=== PATIENT | female | born 1990 | race Caucasian/White ===

== ENCOUNTER → 2017-10-01 15:37 | Outpatient (CLI) | payer OTHER, BC, SELFPAY ==
--- NOTE | 2017-10-01 15:50 | XR_ITS ---
XR hand LT min 3V HISTORY: Pain following injury ITS.REASON: LEFT WRIST HAND AND FINGER INJURY ORDERING PHYSICIAN: Lydia Eden PATIENT AGE: 27 years COMPARISON: FINDINGS: No fracture or dislocation. No lytic or blastic change. There is normal mineralization.. The joint spaces are well-preserved. No significant degenerative/arthritic changes. No erosive changes evident.. IMPRESSION: Negative, no acute finding
--- NOTE | 2017-10-01 15:50 | XR_ITS ---
XR wrist LT min 3V HISTORY pain following injury ITS.REASON: LEFT WRIST HAND AND FOREARM INJURY ORDERING PHYSICIAN: Lydia Eden PATIENT AGE: 27 years COMPARISON: None FINDINGS: No fracture or dislocation. No lytic or blastic change. There is normal mineralization.. The joint spaces are well-preserved. No significant degenerative/arthritic changes. No erosive changes evident.. IMPRESSION: Negative wrist
--- NOTE | 2017-10-01 15:50 | XR_ITS ---
XR forearm LT 2V HISTORY: Pain following injury ITS.REASON: LEFT WRIST HAND AND FOREARM INJURY ORDERING PHYSICIAN: Lydia Eden PATIENT AGE: 27 years COMPARISON: FINDINGS: No obvious fracture, dislocation, lytic change or blastic change. Normal mineralization. Unremarkable soft tissues IMPRESSION: Negative forearm
== END ==
PROVIDERS: PCP Nurse Practitioner Family; Visit Provider Nurse Practitioner Family
DX: S69.92XA Unspecified injury of left wrist, hand and finger(s), initial encounter (principal); S59.912A Unspecified injury of left forearm, initial encounter
CPT/HCPCS: 73090; 73110; 73130

== ENCOUNTER → 2020-01-07 11:06 | Outpatient (CLI) | payer OTHER, SELFPAY ==
--- NOTE | 2020-01-07 11:15 | XR_ITS ---
PROCEDURE: XR ANKLE WT BEARING RT MIN 3V CLINICAL INDICATION: ankle pain Twisting injury with pain COMPARISON: No exams were available for comparison FINDINGS: No fracture or dislocation. No lytic or blastic change. There is normal mineralization. 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 There is a prominent posterior talar process. There is a faint calcific density along the anterior aspect of the navicular suggesting a small avulsion injury IMPRESSION: Chronic changes with possible small avulsion injury at the navicular Dictated by: Fausto Rider MD 01/07/2020 12:10 Electronically signed by Fausto Rider MD in [place] 01/07/2020 12:10
== END ==
PROVIDERS: PCP Family Medicine; Visit Provider Nurse Practitioner
DX: M25.571 Pain in right ankle and joints of right foot (principal)
CPT/HCPCS: 73610

== ENCOUNTER → 2020-02-26 15:28 | Outpatient (CLI) | payer OTHER, SELFPAY ==
[2020-02-28 13:18] LABS: Covid-19 Nasal PCR Sendout Lex Not Detected
== END ==
PROVIDERS: PCP Family Medicine; Visit Provider Family Medicine
DX: Z20.828 Contact with and (suspected) exposure to other viral communicable diseases (principal)
CPT/HCPCS: U0004

== ENCOUNTER → 2020-07-09 15:44 | Outpatient (CLI) | payer OTHER, SELFPAY | PROVIDERS: PCP Family Medicine; Visit Provider Nurse Practitioner Family | DX: Z20.822 Contact with and (suspected) exposure to COVID-19 (principal) | CPT/HCPCS: U0003 ==

== ENCOUNTER → 2021-07-07 10:34 | Outpatient (CLI) | payer OTHER, SELFPAY | PROVIDERS: Visit Provider Nurse Practitioner | DX: Z20.822 Contact with and (suspected) exposure to COVID-19 (principal) | CPT/HCPCS: C9803; U0003; U0005 ==

== ENCOUNTER → 2021-08-19 13:55 | Outpatient (CLI) | payer OTHER, SELFPAY ==
--- NOTE | 2021-08-19 13:55 | MR_ITS ---
FINAL REPORT CLINICAL HISTORY: TBI 20ml prohance given. FINDINGS: Multiplanar MR imaging of the brain was performed without and with contrast. Motion artifact on many of the images decreases the sensitivity. There is anterior left temporal atrophy, likely represents encephalomalacia which could be due to prior injury. There is no evidence of intracranial mass. No evidence of prior hemorrhage is seen. No abnormal extra-axial fluid collection is seen. The ventricular size is within normal limits. There is no evidence of shift of the midline structures. The posterior fossa and brainstem have an unremarkable appearance. No area of abnormal restricted diffusion is identified. No abnormal contrast enhancement is seen. Normal major vessel vascular flow voids are noted. IMPRESSION: No acute intracranial abnormality identified. Left temporal atrophy, likely represents encephalomalacia which could be due to prior injury. Reviewed, Interpreted and Dictated by Ar Quan III, MD Transcribed by Veronica Ramirez Authenticated by Ar Quan III, MD on 08/19/2021 04:24:19 PM [facility]
[2021-08-19 15:51] LABS: Basophils % 0.6 % (0.1-2.0); Eosinophils # 0.1 K/mm3 (0.0-0.4); Eosinophils % 0.9 % (0.1-12.0); Hematocrit 41.3 % (37.0-47.0); Lymphocytes % 13.3 % (10-50); Mean Corpuscular HGB Conc 33.9 g/dL (31.8-35.4); Mean Corpuscular Volume 94.3 fl (81-99); Mean Platelet Volume 7.6 fl (7.4-10.4); Monocytes # 0.6 K/mm3 (0.1-1.0); Monocytes % 8.2 % (1.7-9.3); Neutrophils # 5.9 K/mm3 (1.8-7.8); Neutrophils % 77.1 % (37.0-80.0); Platelet Count 278 K/mm3 (142-424); Red Blood Count 4.39 M/mm3 (4.20-5.40); Red Cell Distribution Width 12.1 % (11.5-17.5); White Blood Count 7.7 K/mm3 (4.8-10.8)
[2021-08-19 16:34] LABS: Alanine Aminotransferase 18 U/L (12-78); Albumin Level 4.8 g/dl (3.5-5.0); Albumin/Globulin Ratio 1.7 (1.1-1.8); Alkaline Phosphatase 71 U/L (38-126); Anion Gap 12.4 mEq/L (5-15); Aspartate Amino Transferase 22 U/L (14-36); Bilirubin,Total 0.7 mg/dl (0.2-1.3); Blood Urea Nitrogen 16 mg/dl (7-17); Calcium 9.9 mg/dl (8.4-10.2); Carbon Dioxide 28 mmol/L (22.0-30.0); Chloride 103 mmol/L (98-107); Estimated Glomerular Filt Rate 85 ml/min (>60); GFR (African American) 103 ML/MIN (>60); Globulin 2.8 g/dL (1.3-3.2); Glucose 80 mg/dl (74-100); Potassium 4.4 mmoL/L (3.5-5.1); Sodium 139 mmol/L (136-145); Total Protein,Serum 7.6 g/dl (6.3-8.2)
[2021-08-19 17:05] LABS: Thyroid Stimulating Hormone 2.08 uIU/mL (0.465-4.68)
[2021-08-19 17:40] LABS: Vitamin B12 441 pg/mL (239-931)
== END ==
PROVIDERS: PCP Family Medicine; Visit Provider Specialist
DX: F09 Unspecified mental disorder due to known physiological condition (principal); Z87.820 Personal history of traumatic brain injury
CPT/HCPCS: 36415; 70553; 80053; 82607; 82746; 84443; 85025; A9576

== ENCOUNTER → 2021-09-02 12:06 | Outpatient (CLI) | payer OTHER, SELFPAY | PROVIDERS: PCP Family Medicine; Visit Provider Specialist | DX: G47.33 Obstructive sleep apnea (adult) (pediatric) (principal); F09 Unspecified mental disorder due to known physiological condition | CPT/HCPCS: 95806 ==

== ENCOUNTER 2021-10-20 14:57 | Emergency (ER) | payer OTHER, SELFPAY ==
[2021-10-20 14:58] VITALS: BP 152/74; PULSE 92; RESP 16; TEMP 37.6; O2SAT 98; BMI 37.5
[2021-10-20 15:25] VITALS: BP 0/0; PULSE 0; RESP 0; TEMP -17.7; TEMP 0
== END 2021-10-20 15:28 | disposition left against medical advice (07) ==
LOC: UTC 16:12
PROVIDERS: Emergency Provider Nurse Practitioner; PCP Family Medicine
DX: Z53.21 Procedure and treatment not carried out due to patient leaving prior to being seen by health care provider (principal)

== ENCOUNTER 2021-11-01 20:38 | Emergency (ER) | payer OTHER, SELFPAY ==
[2021-11-01 20:49] VITALS: BP 140/68; PULSE 87; RESP 18; TEMP 37.5; O2SAT 98; BMI 38.5
--- NOTE | 2021-11-01 20:57 | HMH.EDSKAF ---
ED Disposition Clinical Impression: Cellulitis Qualifiers: Site of cellulitis: extremity Site of cellulitis of extremity: upper extremity Laterality: left Qualified Code(s): L03.114 - Cellulitis of left upper limb Disposition: Home, Self-Care Condition on Discharge: Good Instructions: Cellulitis Additional Instructions: use meds and see pcp for follow up Prescriptions: Sulfamethoxazole/Trimethoprim [Bactrim DS tablet] 1 each PO BID #14 tab Transmission Status: Pending to [facility] # cephALEXin [cephALEXin 500mg capsule*] 500 mg PO TID #30 cap Transmission Status: Pending to [facility] # Referrals: Lydia Eden APRN [Primary Care Provider] - - Critical Care Critical Care Time: No Attestation: On , the high probability of a clinically significant, sudden or life threatening deterioration of the following system(s) required my full and direct attention, intervention and personal management. The time I documented below is in addition to time spent performing reported procedures but includes the following listed in this critical care notation. Medical Decision Making - Medical Records Medical records reviewed: Yes: I reviewed the patient's medical records. - Guillaume Inquiry Pt receiving controlled substance: No Vital Signs: 11/01/21 20:49 Temperature 99.5 F Temperature Source Oral Pulse Rate [Apical] 87 Respiratory Rate 18 Blood Pressure [Right Arm] 140/68 Blood Pressure Mean [Right Arm] 92 Blood Pressure Source [Right Arm] Automatic Cuff Blood Pressure Position [Right Arm] Sitting 02 Sat by Pulse Oximetry 98 Oxygen Delivery Method Room Air Medical Decision Narrative: has cellulitis lt forearm and will give meds at this time Skin/Abscess/FB HPI - General Chief complaint: Wound/Laceration Stated complaint: spot on Left arm Infected Time Seen by Provider: 11/01/21 20:57 Mode of Arrival: Ambulatory Source of Information: Patient, Parent(s), Medical Record Limitations: No Limitations Description of Symptoms (Recalled from ER Triage Doc. by RN): patient has a wound on her inner left forearm that has been there since Sunday. Unknown source of injury. Red streaking noted on forearm. - History of Present Illness HPI narrative: infected area lt volar forearm over the last few days MD complaint: abscess/boil Onset (ago): day(s) Tetanus up to date: yes Location: LUE Severity: moderate Associated symptoms: denies other symptoms Treatments prior to arrival: none - Related Data Home Medications Medication Instructions Recorded Confirmed Benztropine Mesylate 0.5 mg PO BID 11/01/21 11/01/21 Cariprazine HCl [Vraylar] 1.5 mg PO DAILY 11/01/21 11/01/21 Citalopram Hydrobromide 40 mg PO DAILY 11/01/21 11/01/21 [Citalopram HBr] lamoTRIgine [Lamotrigine] 50 mg PO BID 11/01/21 11/01/21 Previous Rx's Medication Instructions Recorded Sulfamethoxazole/Trimethoprim 1 each PO BID #14 tab 11/01/21 [Bactrim DS tablet] cephALEXin [cephALEXin 500mg 500 mg PO TID #30 cap 11/01/21 capsule*] Allergies Allergy/AdvReac Type Severity Reaction Status Date / Time lamotrigine [From Lamictal] Allergy Intermediate rash Verified 10/20/21 14:09 latex Allergy Intermediate Verified 10/20/21 14:09 Bandaid Allergy Mild Uncoded 10/10/21 14:15 [facility] History - Hepatitis A Screen Attestation statement:: This patient has been screened for Hepatitis A risk factors. I have reviewed the patient's past medical history: Yes Medical History: Reports:: Anxiety, Osteoporosis Other Medical History: Reports: Osteoporosis, Other Comment: TBI Other Surgeries: Yes: No Previous Surgery Amputation: No Fractures: No - Social History Smoking Status: Never smoker Alcohol Intake: never Substance Use Type: denies use Occupational Status: employed Housing: house Household Members: family - Psychiatric History Pschychiatric History:: Reports:: Anxiety Family Hx:: Diabetes,
[2021-11-01 21:06] VITALS: BP 135/81; PULSE 86; RESP 17; TEMP 37.4; O2SAT 99
== END 2021-11-01 21:28 | disposition home or self-care (01) ==
PROVIDERS: Emergency Provider Emergency Medicine; PCP Nurse Practitioner Family
DX: L03.114 Cellulitis of left upper limb (principal)
CPT/HCPCS: 99212; G0463

== ENCOUNTER 2024-04-10 15:51 | Emergency (ER) | payer MEDICAID, SELFPAY ==
[2024-04-10 16:05] VITALS: BP 136/80; PULSE 105; RESP 20; TEMP 36.8; O2SAT 97; BMI 43.9
--- NOTE | 2024-04-10 16:17 | EXP.UTC ---
Discharge Plan Disposition Patient Disposition: Home, Self-Care Condition: Good Prescriptions Prescriptions: New triamcinolone acetonide 0.1 % cream 1 applic topical BID PRN (Reason: itching) Qty: 30 0RF mupirocin 2 % ointment 1 applic topical TID 7 Days Qty: 15 0RF amoxicillin-pot clavulanate 875-125 mg Tablet 1 tab PO Q12H Qty: 20 0RF No Action clonazepam [Klonopin] 0.5 mg tablet 0.5 mg PO BID PRN (Reason: agitation) Qty: 60 1RF metformin 500 mg tablet 500 mg PO DAILY Patient Comments: TAKE 1 TABLET BY MOUTH TWICE DAILY WITH MEALS Vraylar 3 mg capsule 4.5 mg PO DAILY trazodone 50 mg tablet 50 mg PO DAILY Qty: 30 2RF benztropine 0.5 mg tablet See Rx Instructions .ROUTE .COMPLEX Qty: 180 0RF Dose Instruction: TAKE 1 TABLET BY MOUTH TWICE DAILY Rx Instructions: TAKE 1 TABLET BY MOUTH TWICE DAILY citalopram 40 mg tablet See Rx Instructions .ROUTE .COMPLEX Qty: 30 0RF Dose Instruction: TAKE 1 TABLET BY MOUTH DAILY FOR SLEEP Rx Instructions: TAKE 1 TABLET BY MOUTH DAILY FOR SLEEP paroxetine HCl 40 mg tablet See Rx Instructions .ROUTE .COMPLEX Qty: 30 0RF Dose Instruction: TAKE 1 TABLET BY MOUTH DAILY Rx Instructions: TAKE 1 TABLET BY MOUTH DAILY lamotrigine 100 mg tablet See Rx Instructions .ROUTE .COMPLEX Qty: 60 0RF Dose Instruction: TAKE 1/2 TABLET BY MOUTH TWICE DAILY Rx Instructions: TAKE 1/2 TABLET BY MOUTH TWICE DAILY Referrals Follow up/Referrals: Chirag Rea MD [Primary Care Provider] - See instructions Activity Restrictions/Add. Instructions Additional Instructions/Restrictions: Keep the wounds clean and dry. Follow up with your regular doctor. Take the antibiotics as directed and apply the topical antibiotics as directed. Make sure you stay in contact with the health department regarding the health of the dog. Watch the puncture wounds for signs of worsening infection, such as worsening redness, drainage, swelling, etc. GO TO THE ER FOR ANY WORSENING SYMPTOMS Clinical Impressions Clinical Impression: Cat bite of right hand, Cellulitis of right hand Instructions Patient Instructions: DI for Animal Bites, Triamcinolone Topical, Amoxicillin and Clavulanic Acid, Ceftriaxone Injection, Mupirocin Print Language Print Language: Panamanian Discharge ED Provider: Jose Adames [facility] [place] HPI General Stated complaint: cat bite right hand Mode of Arrival: Ambulatory Source of Information: Patient Limitations: No Limitations Time Seen by Provider: 04/10/24 16:10 Description of Symptoms (Recalled from Triage Doc. by RN): PATIENT C/O REDNESS AND SWELLING TO RIGHT HAND AFTER GETTING BIT BY A CAT ON SUNDAY HEENT Symptoms (Recalled from RN notes): No Resp Symptoms (Recalled from RN notes): No Skin Symptoms (Recalled from RN notes): Yes MS Symptoms (Recalled from RN notes): No Functional Status (Recalled from RN notes): WNL History of Present Illness Provider Complaint: She states that 4 days ago she was bit by her cat on her right hand. She states that the cat was playing and did not mean to hurt her. Since then she has developed edema and redness of her right hand in the area of the bite. Her tetanus immunization is up to date. Related Data Home Medications ?Medication ?Instructions ?Recorded ?Confirmed metformin 500 mg tablet 500 mg PO DAILY 08/20/23 04/10/24 cariprazine 3 mg capsule (Vraylar) 4.5 mg PO DAILY 11/20/23 04/10/24 Previous Rx's ?Medication ?Instructions ?Recorded clonazepam 0.5 mg tablet (Klonopin) 0.5 mg PO BID PRN agitation #60 08/17/23 tabs trazodone 50 mg tablet 50 mg PO DAILY #30 tabs 02/19/24 benztropine 0.5 mg tablet See Rx Instructions .Route 02/22/24 .COMPLEX #180 tabs citalopram 40 mg tablet See Rx Instructions .Route 03/21/24 .COMPLEX #30 tabs lamotrigine 100 mg tablet See Rx Instructions .Route 03/31/24 .COMPLEX #60 tabs paroxetine HCl 40 mg tablet See Rx Instructions .Route 03/31/24 .COMPLEX #30 tabs amoxicillin 875 mg-potassium 1 tab PO Q12H #20 tabs 04/10/24 clavulanate 125 mg tablet mupirocin 2 % topical ointment 1 applic topical TID 7 days #15 04/10/24 grams triamcinolone acetonide 0.1 % 1 applic topical BID PRN itching 04/10/24 topical cream #30 grams Allergies Allergy/AdvReac Type Severity Reaction Status Date / Time lamotrigine [From Lamictal] Allergy Intermediate rash Verified 03/07/24 10:29 latex Allergy Intermediate Verified 03/07/24 10:29 Bandaid Allergy Mild Uncoded 11/10/22 10:12 Worker's Comp Is this a Worker's Comp case?: No [facility] Disclaimer: The information contained in this section may have been updated after the patient was seen, as this information can be updated by other users. Medical History Mood disorder Social History Smoking Status: Never smoker alcohol intake: never substance use type: denies use current occupational status: employed Travel in the last 8 weeks: None household members: family housing: house number of children: 0 ROS Obtained: Yes All systems reviewed & no additional complaints except as documented Constitutional Constitutional: Denies chills and Denies fever(s) Eyes Eyes: Denies eye discharge ENT Ears, Nose, Mouth, and Throat: Denies dizziness, Denies otalgia and Denies sore throat Cardiovascular Cardiovascular: Denies chest pain Respiratory Respiratory: Denies shortness of breath, Denies chest congestion, Denies cough, Denies stridor and Denies wheezing Gastrointestinal Gastrointestingal: Denies nausea or vomiting Musculoskeletal Musculoskeletal: Reports system reviewed and no additional complaints, except as documented and Denies arthralgias Integumentary/Breasts Skin/Breast: Reports as per HPI Neurologic Neurologic: Denies dizziness and Denies paresthesias Allergic/Immunologic Allergic/Immunologic: Denies wheezing Physical Exam General General appearance: alert and in no apparent distress Head Head exam: atraumatic, normocephalic and normal inspection Eye Eye exam: Present normal appearance, PERRL and EOMI ENT ENT exam: Present normal exam, normal oropharynx, mucous membranes moist, TM's normal bilaterally and normal external ear exam Neck Neck exam: Present normal inspection, full ROM and trachea midline; Absent meningismus or lymphadenopathy Chest Chest inspection: Present normal inspection and symmetric chest wall rise; Absent tenderness Respiratory Respiratory exam: Present normal lung sounds bilaterally; Absent respiratory distress Cardiovascular Cardiovascular exam: Present regular rate and normal rhythm; Absent JVD Abdominal Exam Abdominal exam: Present soft and normal bowel sounds; Absent distention, tenderness or guarding Extremities Exam Extremities exam: Present normal inspection, full ROM and normal capillary refill; Absent calf tenderness Back Exam Back exam: Present normal inspection; Absent tenderness Neurological Exam Neurological exam: Present alert and oriented X3 Psychiatric Psychiatric exam: Present normal affect and normal mood Skin Skin exam: Present erythema (there is moderate erythema and mild edema of the dorsal surface of her right hand. no open wounds or drainage noted. ) Lymphatic Lymphatic Findings: no adenopathy Medical Decision Making Medical Records Medical records reviewed: No I reviewed the patient's medical records. Screening: Per USPSTF and CDC recommendations, given the prevalence of disease in our region, it is our hospital?s policy to screen for HIV and viral Hepatitis for all patients aged 18 and over and those with ongoing risk factors. Guillaume Inquiry Pt receiving controlled substance: No Vital Signs: 04/10/24 16:05 Temperature 98.2 F Temperature Source Oral Pulse Rate [Left Brachial] 105 H Respiratory Rate 20 Blood Pressure [Left Arm] 136/80 Blood Pressure Mean [Left Arm] 98 Blood Pressure Source [Left Arm] Automatic Cuff Blood Pressure Position [Left Arm] Sitting 02 Sat by Pulse Oximetry 97
--- NOTE | 2024-04-10 16:35 | PC.NURSE ---
ROCEPHIN ORDER FLAGGED FOR LATEX ALLERGY. SPOKE WITH ARA FROM PHARMACY WHO STATES OK TO GIVE
[2024-04-10] MEDS: LIDOCAINE 1% 5ML PF VIAL IM (16:40)
[2024-04-10] MEDS: cefTRIAXone 1GM VIAL 1 GM IM (16:40)
[2024-04-10 17:02] VITALS: BP 136/80; PULSE 105; RESP 20; TEMP 36.8; O2SAT 97
== END 2024-04-10 17:03 | disposition home or self-care (01) ==
PROVIDERS: Emergency Provider Nurse Practitioner Family; PCP Family Medicine
DX: L03.113 Cellulitis of right upper limb (principal); W55.01XA Bitten by cat, initial encounter
CPT/HCPCS: 96372; 99213; G0381; J0696

== ENCOUNTER 2024-06-30 16:29 | Emergency (ER) | payer MEDICAID, SELFPAY ==
[2024-06-30 16:35] VITALS: BP 131/90; PULSE 98; RESP 16; TEMP 36.8; O2SAT 99; BMI 44.2
--- NOTE | 2024-06-30 16:44 | EXP.UTC ---
Discharge Plan Disposition Patient Disposition: Home, Self-Care Condition: Good Prescriptions Prescriptions: New benzonatate 100 mg capsule 100 mg PO TID PRN (Reason: cough) Qty: 30 0RF amoxicillin-pot clavulanate 875-125 mg Tablet 1 tab PO Q12H Qty: 20 0RF fluticasone propionate [Flonase Allergy Relief] 50 mcg/actuation spray,suspension 2 spray intranasal DAILY Qty: 16 0RF Rx Instructions: administer 2 sprays into each nostril daily No Action metformin 500 mg tablet 500 mg PO DAILY Patient Comments: TAKE 1 TABLET BY MOUTH DAILY WITH BREAKFAST benztropine 0.5 mg tablet 0.5 mg PO BID Patient Comments: TAKE 1 TABLET BY MOUTH TWICE DAILY citalopram 40 mg tablet 40 mg PO DAILY paroxetine HCl 40 mg tablet 40 mg PO DAILY Patient Comments: TAKE 1 TABLET BY MOUTH DAILY lamotrigine 100 mg tablet 100 mg PO BID Patient Comments: TAKE 1/2 TABLET BY MOUTH TWICE DAILY Vraylar 4.5 mg capsule 4.5 mg PO DAILY Referrals Follow up/Referrals: Chirag Rea MD [Primary Care Provider] - See instructions Activity Restrictions/Add. Instructions Additional Instructions/Restrictions: *Monitor Temp, Over the counter Motrin or Tylenol as directed/as needed Tylenol every 4 hours and Motrin every 6 hours (as long as your family doctor has told you that you can take it) for fever or pain. and straight to ER if unable to lower temp less than 101.0 after medication given *Warm salt water gargles may help to soothe the throat *Throat Lozenges? *Warm fluids like tea with honey may help to soothe the throat? *Sleep elevated *Humidifier/Vaporizer *Flonase 2 sprays in each nostril daily but be aware that it may take 2-3 days before you notice improvement Take medication as prescribed Follow up IMMEDIATELY for new or worsening symptoms or no Noticeable improvement over the next 48-72 hours. 911 for difficulty breathing or swallowing Clinical Impressions Clinical Impression: Sinusitis Instructions Patient Instructions: DI for Sinusitis, Cough, Benzonatate, Amoxicillin and Clavulanic Acid Print Language Print Language: Croatian Discharge ED Provider: Tierra Branham [facility] [place] HPI General Stated complaint: cough,wheezing,ROBERTS,bilateral earache Mode of Arrival: Ambulatory Source of Information: Patient Limitations: No Limitations Time Seen by Provider: 06/30/24 16:44 Description of Symptoms (Recalled from Triage Doc. by RN): PATIENT C/O BILATERAL EAR PAIN, COUGH, AND CHEST CONGESTION X 2 DAYS HEENT Symptoms (Recalled from RN notes): Yes Resp Symptoms (Recalled from RN notes): Yes Skin Symptoms (Recalled from RN notes): No MS Symptoms (Recalled from RN notes): No Functional Status (Recalled from RN notes): WNL History of Present Illness Provider Complaint: Patient states that she has been having sinus pain and pressure, pain and pressure in both ears, cough and chest congestion States today she wasnt feeling any better so she came in to get checked Related Data Home Medications ?Medication ?Instructions ?Recorded ?Confirmed benztropine 0.5 mg tablet 0.5 mg PO BID 06/30/24 06/30/24 cariprazine 4.5 mg capsule 4.5 mg PO DAILY 06/30/24 06/30/24 (Vraylar) citalopram 40 mg tablet 40 mg PO DAILY 06/30/24 06/30/24 lamotrigine 100 mg tablet 100 mg PO BID 06/30/24 06/30/24 metformin 500 mg tablet 500 mg PO DAILY 06/30/24 06/30/24 paroxetine HCl 40 mg tablet 40 mg PO DAILY 06/30/24 06/30/24 Previous Rx's ?Medication ?Instructions ?Recorded amoxicillin 875 mg-potassium 1 tab PO Q12H #20 tabs 06/30/24 clavulanate 125 mg tablet benzonatate 100 mg capsule 100 mg PO TID PRN cough #30 caps 06/30/24 fluticasone propionate 50 2 spray intranasal DAILY #16 grams 06/30/24 mcg/actuation nasal spray,suspension (Flonase Allergy Relief) Allergies Allergy/AdvReac Type Severity Reaction Status Date / Time lamotrigine (From Lamictal) Allergy Intermediate rash Verified 05/05/24 14:08 latex Allergy Intermediate Rash Verified 06/30/24 16:44 Worker's Comp Is this a Worker's Comp case?: No [facility] Disclaimer: The information contained in this section may have been updated after the patient was seen, as this information can be updated by other users. Medical History Mood disorder Social History Smoking Status: Never smoker alcohol intake: never substance use type: denies use current occupational status: employed Travel in the last 8 weeks: None household members: family housing: house number of children: 0 Have you lived/traveled outside [place] in past 30 days?: No Contact w/someone who lives/traveled outside [place] past 30 days?: No Exposure to someone with infectious disease in past 14 days?: No Do you have a fever (greater than 100.4 F or 38 C)?: No Have you tested positive for COVID-19: No Exposed to someone with COVID-19 in past 14 days?: No Do you have a sore throat?: No Do you have a cough?: Yes Do you have any weakness?: No Do you have any diarrhea?: No Are you experiencing any unusual bleeding?: No Do you have any muscle aches/pain?: No Do you have any abdominal pain?: No Are you experiencing loss of taste or smell?: No ROS Obtained: Yes All systems reviewed & no additional complaints except as documented and Yes Systems reviewed as appropriate & no additional complaints except as documented Constitutional Constitutional: Reports system reviewed and no additional complaints, except as documented and Reports as per HPI ENT Ears, Nose, Mouth, and Throat: Reports system reviewed and no additional complaints, except as documented, Reports as per HPI, Reports otalgia, Reports sinus pain and Reports sinus pressure Cardiovascular Cardiovascular: Reports system reviewed and no additional complaints, except as documented and Reports as per HPI Respiratory Respiratory: Reports system reviewed and no additional complaints, except as documented, Reports as per HPI, Reports chest congestion and Reports cough Gastrointestinal Gastrointestingal: Reports system reviewed and no additional complaints, except as documented and as per HPI Physical Exam General General appearance: alert and in no apparent distress ENT ENT exam: Present mucous membranes moist Expanded ENT Exam TM/Canal exam: Bilateral TM: bulging (no redness noted) Nose exam: Present sinus tenderness Respiratory Respiratory exam: Present normal lung sounds bilaterally; Absent respiratory distress or wheezes Cardiovascular Cardiovascular exam: Present regular rate, normal rhythm and normal heart sounds Abdominal Exam Abdominal exam: Present soft and normal bowel sounds; Absent distention or tenderness Neurological Exam Neurological exam: Present alert, oriented X3 and normal gait Medical Decision Making Medical Records Screening: Per USPSTF and CDC recommendations, given the prevalence of disease in our region, it is our hospital?s policy to screen for HIV and viral Hepatitis for all patients aged 18 and over and those with ongoing risk factors. Guillaume Inquiry Pt receiving controlled substance: No Guillaume was queried for this patient: No Vital Signs: 06/30/24 16:35 Temperature 98.3 F Temperature Source Oral Pulse Rate [Left Brachial] 98 H Respiratory Rate 16 Blood Pressure [Left Arm] 131/90 Blood Pressure Mean [Left Arm] 103 Blood Pressure Source [Left Arm] Automatic Cuff Blood Pressure Position [Left Arm] Sitting 02 Sat by Pulse Oximetry 99 Oxygen Delivery Method Room Air
[2024-06-30 16:53] VITALS: BP 131/90; PULSE 98; RESP 16; TEMP 36.8; O2SAT 99
== END 2024-06-30 16:56 | disposition home or self-care (01) ==
PROVIDERS: Emergency Provider Nurse Practitioner; PCP Family Medicine
DX: J32.9 Chronic sinusitis, unspecified (principal)
CPT/HCPCS: 99212; G0381

== ENCOUNTER 2025-02-09 09:11 | Outpatient (CLI) | payer MEDICARE, MEDICAID, SELFPAY ==
--- OUTSIDE RECORDS SUMMARY | 2024-12-30 12:41 | XMS_ITS | Encounter Summary ---
Author Organization Healthcare Address [address] [id number] Care Team Providers Care Evp And Chief Operating Officer Name Role Phone Chirag Rea MD Primary Care Provider [phone] Reason for Referral * Imaging (Routine) - Closed Specialty Diagnoses / Procedures Referred By Contac t Referred To Contact Radiology Diagnoses Traumatic brain injury with loss of consciousness, sequela (CMS/HCC) Procedures MR Head w and wo IV Contrast Yara Cornejo MD [address] [address] Phone: tel: fax: Referral ID Status Reason Start Date Expiration Date Visits Re quested Visits Authorized [id number] Closed 09/17/2024 03/19/2026 1 1 Reason for Visit * Imaging (Routine) - Closed Specialty Diagnoses / Procedures Referred By Contac t Referred To Contact Radiology Diagnoses Traumatic brain injury with loss of consciousness, sequela (CMS/HCC) Procedures MR Head w and wo IV Contrast Yara Cornejo MD [address] [address] Phone: tel: fax: Referral ID Status Reason Start Date Expiration Date Visits Re quested Visits Authorized [id number] Closed 09/17/2024 03/19/2026 1 1 Encounter Details Date Type Department Care Team (Latest Contact Info) Description 12/30/2024 12:41 PM EDT - 12/30/2024 11:59 PM EDT Hospital Encounter [facility] MRI [address] [place] [address] Traumatic brain injury with loss of consciousness, [...] error, please notify the sender immediately at [phone] and permanently delete the original report and destroy any copies or printouts. Narrative 12/30/2024 3:55 PM EDT [facility] - Phone Outpatient NAME: Slim Montelongo DATE OF EXAM: 12/30/2024 Patient No: [id number] Physician: Osmar Date of : 1990 Past [...] Barnhart MD - 12/30/2024 [facility] NAME: Slim Montelongo Christopher DATE OF EXAM: 12/30/2024 Patient No: [id number] Physician: Osmar Date of : 1990 Past [...] in error, pleasenotify the sender immediately at [phone] and permanently delete theoriginal report and destroy any copies or printouts. Yara Conrejo MD IMG MRI PROCEDURES Final Res ult [...] documented as of this encounter Care Teams Evp And Chief Operating Officer Relationship Specialty Start Date End Date Chirag Rea MD [address] [place] [address] PCP - General 09/17/24 documented as of this encounter
--- OUTSIDE RECORDS SUMMARY | 2025-01-06 16:30 | XMS_ITS | Encounter Summary ---
Author Organization [facility] Address [address] [place] [address] Care Team Providers Care Connie Scratcher Name Role Phone Chirag Rea MD Primary Care Provider + Reason for Visit * Reason Comments Follow-up [facility] f/u, UTI- still having burning with urination. Encounter Details Date Type Department Care Team (Late st Contact Info) Description 01/06/2025 4:30 PM EDT Office Visit [facility] [address] [place] [address] Chirag Rea MD [address] [place] [address] Hematuria, unspecified type (Primary Dx); [...] EDT Chief Complaint Patient presents with Follow-up [facility] f/u, UTI- still having burning with urination. Subjective Slim Montelongo is a 34 y.o. who presents for follow-up of a 1 week stay at [facility] for cristhian. Adjustments were made to medications [...] Color Yellow Yellow, Straw, Dark Yellow, Lina [facility] Comment:odor Clarity, UA Cloudy(A) Clear [facility] Specific [place] 1.030 1.005 - 1.030 [facility] pH, Urine 6.0 5.0 - 8.0 [facility] Leukocytes Negative Negative [facility] Nitrite, UA Negative Negative [facility] Protein, POC Negative Negative mg/dL [facility] Glucose, UA Negative Negative mg/dL [facility] Ketones, UA Negative Negative [facility] Urobilinogen, UA Normal Normal, 0.2 E.U./dL [facility] Bilirubin Negative Negative [facility] Blood, UA Trace(A) Negative [facility] Lot Number [id number] [facility] Expiration Date 08/11/2025 [facility] Urine 01/06/2025 3:49 PM EDT us Chirag Rea MD POINT OF CARE TEST ORDER JYOTI Final Result [facility]
[address] [place] [address], documented in this encounter Visit Diagnoses Diagnosis Hematuria, unspecified type- Primary Mood disorder Unspecified episodic mood disorder Urinary tract infection without hematuria, site unspecified documented in this encounter Care Teams Connie Scratcher Relationship Specialty Start Date End Date Chirag Rea MD [address] [place] [address] PCP - General Family Medicine 04/16/23 documented as of this encounter
--- OUTSIDE RECORDS SUMMARY | 2025-01-07 11:00 | XMS_ITS | Encounter Summary ---
Author Organization Healthcare Address [address] [place] [address] Care Team Providers Care Door Cutter Name Role Phone Chirag Rea MD Primary Care Provider [phone] Yara Cornejo MD Unavailable [phone] Reason for Visit * Reason Comments Follow-up Encounter Details Date Type Department Care Team (Late st Contact Info) Description 01/07/2025 11:00 AM EDT Office Visit [place] [facility] [address], [address] [place] [address] Yara Cornejo MD [address] [place] [address] Traumatic brain injury with loss of consciousness, sequela (CMS/HCC) (Primary Dx); Behavioral problem; Cognitive change; Intellectual disability Social History Tobacco Use Types Packs/Day Years [...] Sign Reading Time Taken Comments Blood Pressure 116/77 01/07/2025 10:49 AM EDT Pulse 88 01/07/2025 10:49 AM EDT Temperature - - Respiratory Rate - - Oxygen Saturation 95% 01/07/2025 10:49 AM EDT Inhaled Oxygen Concentration - - Weight 107 kg (236 lb 15.9 oz) 01/07/2025 10:49 AM EDT Height 157.5 cm (5' 2 ) 01/07/2025 10:49 AM EDT Body Mass Index 43.35 01/07/2025 10:49 AM EDT documented in this encounter Miscellaneous Notes * Progress Notes - Yara Cornejo MD - 01/07/2025 11:00 AM EDT Reason for Consult advice and opinion regarding TBI History of Present Illness History was obtained from a review of the electronic record and discussion with the patient and family. Slim Montelongo is a 34 y.o. female with traumatic brain injury who returns in the Neurology Clinic for evaluation. Accompanied by her mother who provided most of the history. Last seen in September/2024. Previous history Sustained Brain injury - age of 3.5 years. Fell down a stairwell. Developed Head injury - happened in [place], [place]. Hospitalized for 48 hours, mother can't remember details. Has had head imaging. Did not require any surgery. Patient has had behavioral issues and cognitive deficits after this head injury. Types of Behavioral issues - brought a typed out note of 3 pages outlining the problems- aggression, flipping switch back and forth , frequent eating. Patient has been evaluated by PCP, neurology - Dr. Saloni Coleman, also saw neurology in [place] Reports Little headache at least once a week,. Managed with Tylenol or advil. There were concerns about Absence seizures after head injury. Zones on and off. Darts eyes, ? Abnormal hand movements. No GTC. Has completed EEG in August 2021 -showed poor background, abnormal, no szs Has completed Sleep study - moderate sleep apnea- not using CPAP. Parents are unable to make her cooperate. MRI head in August 2021-showed left temporal atrophy, post traumatic encephalomalacia Has completed Neurocog eval- had low scores on mental flexibility, executive function,digital symbol substitution with Poor attention span Followed by psychiatric nurse practitioner. Sarah perez, psychosocial rehabilitation counselor, Lisa Mishra - now forMood and behavioral changes- choked her family cat. Patient says she Works at [employer] - 3 days a week - from 3 to 6 pm , [employer] 2/week - this is TYPE OF OCCUPATIONAL THERAPY. Stays at home with her parents. Completed high school - had IEP IQ -62 to 60 Has been documented that Expressive language high, receptive language is low. No falls , left leg does not work well. Previous meds include Vrylar Cogentin, citalopram, paroxetine, trazodone lamotrigine and as-needed Klonopin. She was on metformin for suppressing appetite, no known history of polycystic ovarian syndrome or metabolic syndrome although she has irregular menstrual cycles. Maternal great grand mother and aunt - had mental illness Has Distance vision glasses - does not wear them Decline in behavior - has become more intense per parents , self harm- rome Gonzalez provides weekly behavioral therapy at home. Suggested the following MRI head w/wo- did not show any acute abnormalities EEG - did not show any epileptiform discharges or abnormalities Neuropsych evaluation completed in September/2024 and showed intellectual Developmental Disorder (mild-moderate); confounding/contributing variables include h/o TBI, poor sleep, MALIKA (not on CPAP), affective concerns (i.e., anxiety, depression). IQ something close to 65 to 74, more like 65 per neuropsychologist. Was difficult to complete the entire panel of testing. Encouraged patient to use CPAP Interim history Not using CPAP- voices wake her up at 4.30 am everyday. Has been hearing auditory hallucinations Admitted in [facility] for 1 week in end of November 2024. There was concern for psychosis. During that admission she was treated for a urinary tract infection and still continues to receivetreatment. Medications changes made as follows Seroquel 200 mg daily Lexapro 10 mg once a day Nitrofurantoin for UTI - started back Lamotrigine 100 mg Still hears voices. No facial tics despite stopping benztropine. Sees behavioral counsellor. Sees behavioral and psychiatry [employer]- Tracy Mishra. Mother was requesting for a diagnosis. Past Medical History Past Medical History[1] Surgical History[2] MEDICATIONS FOR CURRENT ENCOUNTER: Encounter Medications[3] Allergies Allergies[4] Social History Social History[5] Family History Family History[6] REVIEW OF SYSTEMS: Review of Systems Constitutional: Negative. HENT: Negative. Eyes: Negative. Respiratory: Negative. Cardiovascular: Negative. Gastrointestinal: Negative. Endocrine: Negative. Genitourinary: Negative. Musculoskeletal: Negative. Skin: Negative. Allergic/Immunologic: Negative. Neurological: Negative. Hematological: Negative. Psychiatric/Behavioral: Negative. Physical Exam HENT: Head: Normocephalic and atraumatic. Cardiovascular: Normal rate and regular rhythm. Pulmonary/Chest: Effort normal and breath sounds normal. Abdominal: Soft. Normal appearance and bowel sounds are normal. Musculoskeletal: General: Normal range of motion. Cervical back: Normal range of motion. Psychiatric: Her speech is normal and behavior is normal. Mood, judgment and thought content normal. Vitals: 01/07/25 1049 BP: 116/77 Pulse: 88 SpO2: 95% Weight percentile: Facility age limit for growth %corinne is 20 years. Height percentile: Facility age limit for growth %corinne is 20 years. BMI percentile: Facility age limit for growth %corinne is 20 years. BP percentile: Growth %ile [employer] can only be used for patients less than 20 years old. Wt Readings from Last 4 Encounters: 01/07/25 107 kg (236 lb 15.9 oz) 12/30/24 107 kg (235 lb) 09/17/24 107 kg (235 lb 14.3 oz) Physical Exam HENT: Head: Normocephalic and atraumatic. Cardiovascular: Normal rate and regular rhythm. Pulmonary/Chest: Effort normal and breath sounds normal. Abdominal: Soft. Normal appearance and bowel sounds are normal. Musculoskeletal: General: Normal range of motion. Cervical back: Normal range of motion. Psychiatric: Her speech is normal and behavior is normal. Mood, judgment and thought content normal. Neurological exam Neurological Exam Mental Status Speech is normal. Mental Status: Awake, Alert. Oriented x 3. Follows commands, has reasonable fund of knowledge, attention, and speech is fluent. Knew the date. Was providing appropriate answers Cranial Nerves: Visual rosario are full without hemineglect. Fundi normal without disc edema noted. No nystagmus or GREG are present. Pupils react equally to light. Extraocular movements are full. Facial sensation intact V1-V3. Facial movement intact, symmetric. Hearing intact to Conversation. Palate elevates symmetrically. Shoulder shrug was symmetric. Tongue was midline. Motor: No pronator drift. Strength is symmetric proximally and distally. No asterixis, tremor or myoclonus were noted. Normal tone. No atrophy. Sensation: Intact to light touch, temperature, and vibration. Reflexes: DTRs 2+ throughout. Plantar responses were downgoing. Coordination/Cerebellar: Intact to [id number], Gait: walks normally , walks on heel and toe with difficulty, could not do tandem gait ; Romberg was negative. Notes : personally reviewed referral notes and gathered information about her traumatic brain injury and behavioral issues Lab Review Imaging MRI head with and without in December 2024 was unremarkable Impression: Problem List Items Addressed This Visit Cognitive change 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) - Primary Behavioral problem Intellectual disability Plan This is a 34-year-old woman who suffered a traumatic brain injury when she was 3-1/2 years old. Subsequently has developed cognitive issues and behavioral changes and is being managed with psychiatric medications for the same. Does not have significant headaches, there was some concern for seizure-like activity but previous EEG and repeat EEG at has been negative for seizures. MRI brain does not show any worrisome findings. We had a detailed discussion with her mom that her neuropsychological testing shows mild to moderate intellectual disability. The test was also impacted by her history of traumatic brain injury and untreated obstructive sleep apnea. Mother seemed a little confused and had trouble processing all the information that was provided. Also discussed that she could have visual hallucination as part of her psychiatric disorder. She seems to have good support from her family, good psychiatric care, good behavioral therapy and also engaged in occupational therapy. Do not see any outstanding neurological concerns Recommend to meet the neuropsychologist in person and go over the results of the tests Encouraged to treat the sleep apnea using other modes. She will return for follow-up in general Neurology as needed. [1] Past Medical History: Diagnosis Date TBI (traumatic brain injury) (CMS/HCC) [2] History reviewed. No pertinent surgical history. [3] Outpatient Encounter Medications as of 01/07/2025 Medication Sig Dispense Refill acetaminophen (Tylenol) 325 MG tablet Take 2 tablets by mouth. escitalopram (Lexapro) 10 MG tablet Take 1 tablet by mouth daily. ibuprofen 600 MG tablet Take 1 tablet by mouth. lamoTRIgine (LaMICtal) 100 MG tablet Take 1 tablet by mouth in the morning and 1 tablet before bedtime. QUEtiapine (SEROquel) 200 MG tablet Take 1 tablet by mouth nightly. [DISCONTINUED] benztropine (Cogentin) 0.5 MG tablet Take 1 tablet by mouth in the morning and 1 tablet before bedtime. [DISCONTINUED] citalopram (CeleXA) 40 MG tablet TAKE 1 TABLET BY MOUTH DAILY FOR SLEEP [DISCONTINUED] clonazePAM (KlonoPIN) 0.5 MG tablet TAKE 1 TABLET BY MOUTH TWICE DAILY NEEDED FORAGITATION [DISCONTINUED] metFORMIN (Glucophage) 500 MG tablet Take 1 tablet by mouth daily with breakfast. [DISCONTINUED] PARoxetine (Paxil) 40 MG tablet Take 1 tablet by mouth daily. [DISCONTINUED] traZODone (Desyrel) 50 MG tablet Take 1 tablet by mouth daily. [DISCONTINUED] Vraylar 4.5 MG capsule Take 1 capsule by mouth daily. No facility-administered encounter medications on file as of 01/07/2025. [4] Allergies Allergen Reactions Lamotrigine Rash Only if taken in higher doses Latex Hives [5] Social History Tobacco Use Smoking status: Never Smokeless tobacco: Never Substance Use Topics Alcohol use: Never Drug use: Never [6] History reviewed. No pertinent family history. documented in this encounter Plan of Treatment Not on file documented as of this encounter Visit Diagnoses Diagnosis Traumatic brain injury with loss of consciousness, sequela (CMS/HCC)- Primary Behavioral problem Unspecified mental or behavioral problem Cognitive change Intellectual disability Unspecified mental retardation documented in this encounter Additional Health Concerns Assessment Noted Time A fall risk assessment has been complete d for the patient 01/07/2025 10:50 AM EDT A Body Mass Index follow-up plan has been documented for the patient 01/07/2025 8:03 PM EDT documented as of this encounter Care Teams Door Cutter Relationship Specialty Start Date End Date Chirag Rea MD [address] [place] [address] PCP - General 09/17/24 Yara Cornejo MD [address] [place] [address] Service Attending Neuro-Ophthalmology 01/07/25 documented as of this encounter
[2025-02-09 09:44] LABS: Hematocrit 39.9 % (37.0-47.0); Hemoglobin 13.0 g/dL (12.2-16.2); Immature Granulocytes % 0.3 %; Mean Corpuscular HGB Conc 32.6 g/dL (31.8-35.4); Mean Corpuscular Hemoglobin 30.0 pg (27.0-31.2); Mean Corpuscular Volume 91.9 fl (81-99); Nucleated Red Blood Cells % 0 %; Platelet Count 252 K/mm3 (142-424); Red Blood Count 4.34 M/mm3 (4.20-5.40); Red Cell Distribution Width-SD 39.8 fL; White Blood Count 6.3 K/mm3 (4.8-10.8)
--- OUTSIDE RECORDS SUMMARY | 2025-02-09 09:48 | XMS_ITS | Encounter Summary ---
Author Organization Healthcare Address [address] [place] [address] Care Team Providers Care Fitter Helper Name Role Phone Chirag Rea MD Primary Care Provider Yara Cornejo MD Unavailable Encounter Details Date Type Department Care Team (Latest Contact Info) Description 01/07/2025 Travel Social History Tobacco Use Types Packs/Day Years [...] on file documented as of this encounter Plan of Treatment Not on file documented as of this encounter Visit Diagnoses Not on filedocumented in this encounter Additional Health Concerns Assessment Noted Time A fall risk assessment has been complete d for the patient 01/07/2025 10:50 AM EDT A Body Mass Index follow-up plan has been documented for the patient 01/07/2025 8:03 PM EDT documented as of this encounter Care Teams Fitter Helper Relationship Specialty Start Date End Date Chirag Rea MD [address] [place] [address] PCP - General 09/17/24 Yara Cornejo MD [address] [facility] [address] [place] [address] Service Attending Neuro-Ophthalmology 01/07/25 documented as of this encounter
--- OUTSIDE RECORDS SUMMARY | 2025-02-09 09:48 | XMS_ITS | Encounter Summary ---
Author Organization Healthcare Address [address] [place] [address] Care Team Providers Care Accountant Auditor Name Role Phone Chirag Rea MD Primary Care Provider [phone] Yara Cornejo MD Unavailable Encounter Details Date Type Department Care Team (Late st Contact Info) Description 12/08/2024 Results Follow-Up [facility] [address] [place] [address] Yara Cornejo MD [address] [facility] [address] [place] [address] Social History Tobacco Use Types Packs/Day Years [...] documented as of this encounter Care Teams Accountant Auditor Relationship Specialty Start Date End Date Chirag Rea MD [address] [place] [address] PCP - General 09/17/24 Yara Cornejo MD [address] [place] [id number] Service Attending Neuro-Ophthalmology 01/07/25 documented as of this encounter
--- OUTSIDE RECORDS SUMMARY | 2025-02-09 09:48 | XMS_ITS | Encounter Summary ---
[facility] [address] [place] [address] Care Team Providers Care Receiver Bulk System Name Role Phone Chirag Rea MD Primary Care Provider + Reason for Visit * Reason Onset Date Comments VERBAL ORDER REQUEST ON PLAN OF CARE 01/20/2025 Encounter Details Date Type Department Care Team (Late st Contact Info) Description 01/20/2025 Telephone [facility] [address] [place] [address] Chirag Rea MD [address] [place] [address] VERBAL ORDER REQUEST ON PLAN OF CARE Social History Tobacco Use Types Packs/Day Years [...] on file documented as of this encounter Miscellaneous Notes * Telephone Encounter - Aniya Owen MA - 01/22/2025 10:50 AM EDT Gave sanjivay to Diane * Telephone Encounter - Chirag Rea MD - 01/21/2025 4:27 PM EDT V.O. may be provided as requested * Telephone Encounter - Staci Rosario - 01/20/2025 3:12 PM EDT LOLY WITH [facility] HAS CALLED REQUESTING A CALL BACK WITH A VERBAL STATING THERE HAS BEEN NO CHANGE IN PATIENT PLAN OF CARE FOR THE THIRD QUARTER. CALLL BACK NUMBER IS [phone] OR [phone] HERMILO LEÓN documented in this encounter Plan of Treatment Not on file documented as of this encounter Visit Diagnoses Not on filedocumented in this encounter Care Teams Receiver Bulk System Relationship Specialty Start Date End Date Chirag Rea MD [address] [place] [address] PCP - General Family Medicine 04/16/23 documented as of this encounter
--- OUTSIDE RECORDS SUMMARY | 2025-02-09 09:48 | XMS_ITS | Encounter Summary ---
Author Organization Healthcare Address [address] [place] [address] Care Team Providers Care Instructional Support Assistant Name Role Phone Chirag Rea MD Primary Care Provider [phone] Encounter Details Date Type Department Care Team (Latest Contact Info) Description 12/30/2024 Travel Social History Tobacco Use Types Packs/Day [...] documented as of this encounter Care Teams Instructional Support Assistant Relationship Specialty Start Date End Date Chirag Rea MD [address] [place] [address] PCP - General 09/17/24 documented as of this encounter
--- OUTSIDE RECORDS SUMMARY | 2025-02-09 09:48 | XMS_ITS | Encounter Summary ---
Author Organization Healthcare Address [address] [place] [address] Care Team Providers Care Cylinder Batcher Name Role Phone Chirag Rea MD Primary Care Provider [phone] Yara Cornejo MD Unavailable Encounter Details Date Type Department Care Team (Late st Contact Info) Description 08/19/2021 Orders Only External Location [address] [place] [address] Provider, External Social History Tobacco Use Types Packs/Day Years Used Date Smoking Tobacco: Never Assessed Comments Unknown Sex and Gender Information Value Date Recorded Sex Assigned at Not on file Legal Sex Female 8:23 PM EDT Gender Identity Not on file Sexual Orientation Not on file documented as of this encounter Plan of Treatment Not on file documented as of this encounter Procedures Procedure Name Priority Date/Time Associated Diagnosis Comments MR OUTSIDE IMAGES 08/19/2021 2:43 PM EST documented in this encounter Results * MR transfer of outside films (08/19/2021 2:43 PM EST) Anatomical Region Laterality Modality Magnetic Resonan ce 08/19/2021 2:43 PM EST us External Provider IMG MRI PROCEDURES Final Resul t documented in this encounter Visit Diagnoses Not on filedocumented in this encounter Care Teams Cylinder Batcher Relationship Specialty Start Date End Date Chirag Rea MD [address] [place] [address] PCP - General 09/17/24 Yara Cornejo MD [address] [facility] [address] [place] [address] Service Attending Neuro-Ophthalmology 01/07/25 documented as of this encounter
--- OUTSIDE RECORDS SUMMARY | 2025-02-09 09:48 | XMS_ITS | Clinical Summary ---
Author Organization [facility] Address [address] [place] [address] Care Team Providers Care Automotive Painter Name Role Phone Chirag Rea MD Primary Care Provider + Allergies Active Allergy Reactions Criticality Noted Date Comments Lamotrigine Rash Medium 02/02/2022 Only if taken in higher doses Latex Hives Medium 12/05/2021 Medications lamoTRIgine (LaMICtal) 100 MG tablet Take 0.5 tablets by mouth Every 12 (Twelve) Hours. 3 Active traZODone (DESYREL) 50 MG tablet Take 1 tablet by mouth At Night As Needed for Sleep. Active ibuprofen (ADVIL,MOTRIN) 600 MG tabletIndicatio ns:Toe infection Take 1 tablet by mouth Every 8 (Eight) Hours As Needed for Mild Pain or Moderate Pain. 40 tablet 4 Active acetaminophen (Tylenol) 325 MG tablet Take 2 tablets by mouth Every 6 (Six) Hours As Needed for Mild Pain, Moderate Pain or Headache. 60 tablet 1 5 Active triamcinolone (KENALOG) 0.1 % cream Apply 1 Application topically to the appropriate area as directed 2 (Two) Times a Day. Active escitalopram (LEXAPRO) 10 MG tablet Take 1 tablet by mouth Daily. FOR DEPRESSION 5 Active QUEtiapine (SEROquel) 200 MG tablet Take 1 tablet by mouth Every Night. 5 Active sulfamethoxazol e-trimethoprim (Bactrim DS) 800-160 MG per tabletIndicatio ns:Urinary tract infection without hematuria, site unspecified Take 1 tablet by mouth 2 (Two) Times a Day for 7 days. 14 tablet 5 01/14/20 25 Active Problems Problem Noted Date Diagnosed Date Acquired pes planus of both feet 07/28/2024 Acute right ankle pain 07/28/2024 Cellulitis 07/28/2024 Edema of right ankle 07/28/2024 Obesity, Class II, BMI 35-39.9 07/28/2024 Nail dystrophy 07/28/2024 Osteoarthritis of right ankle 07/28/2024 Pain due to onychomycosis of toenails of both fe et 07/28/2024 Annual physical exam 07/28/2024 Assessment & Plan (08/04/2024 8:07 AM EST): Health maintenance: Continue routine health maintenance including routine dentistry, eye exam, safety seatbelt use, exercise, and proper nutrition. Exercise 3-4 times a week, 30-45 mins a day Increase water intake Monitor for acute illnesses Pincer nail deformity 07/28/2024 Right ankle instability 07/28/2024 Sprain and strain of right ankle 07/28/2024 Mood disorder 06/15/2023 Traumatic brain injury 06/15/2023 MALIKA (obstructive sleep apnea) 06/15/2023 Class 3 drug-induced obesity with serious comorbidity and body mass index (BMI) of 40.0 to 44.9 in adult 06/15/2023 Assessment & Plan (08/04/2024 8:08 AM EST): Patient's (Body mass index is 43.26 kg/m .) indicates that they are morbidly/severely obese (BMI > 40 or > 35 with obesity - related health condition) with health conditions that include none . Weight is worsening. BMI is above average; BMI management plan is completed. We discussed low calorie, low carb based diet program, portion control, and increasing exercise. Encounters Date Type Department Care Team Description 01/20/2025 Telephone [facility] [address] [place] [address] Chirag Rea MD VERBAL ORDER REQUEST ON PLAN OF CARE 01/08/2025 Results Follow-Up [facility] [address], [place] [address] Chirag Rea MD 01/06/2025 4:30 PM EDT Office Visit [facility] [address] [place], [place] [address] Chirag Rea MD Hematuria, unspecified type (Primary Dx); Mood disorder; Urinary tract infection without hematuria, site unspecified 01/06/2025 Travel from Last 3 Months Immunizations Immunization Administration Dates Next Due COVID-19 (MODERNA) 12YRS+ (SPIKEVAX) 04/01/2024 Fluzone >6mos 04/01/2024 Fluzone (or Fluarix & Flulaval for VFC) >6mos ,04/04/2021 Influenza Injectable Mdck Pf Quad 04/03/2022,06/2019 Tdap 12/17/2023 Family History Medical History Relation Name Comments Arthritis Father Hypertension Father Hypertension Mother Kidney disease Sister Relation Name Status Comments Father Mother Sister Social History Tobacco Use Types Packs/Day Years [...] on file Sexual Orientation Not on file Last Filed Vital Signs Vital Sign Reading [...] Mass Index 43.27 01/06/2025 3:38 PM EDT Plan of Treatment Health Maintenance Due Date Last Done Comments Annual Gynecologic Pelvic and Breast Exam 1992 PAP SMEAR 2013 ANNUAL WELLNESS VISIT 04/16/2023 INFLUENZA VACCINE 03/18/2025 04/01/2024, , 04/03/2022, Additional history exists TDAP/TD VACCINES (2 - Td or Tdap) 12/16/2033 12/17/2023 HEPATITIS C SCREENING Completed 04/16/2023 COVID-19 Vaccine Completed 04/01/2024, , 06/15/2021, Additional history exists Pneumococcal Vaccine 0-49 Aged Out No longer eligible based on patient's age to complete this topic Procedures Procedure Name Priority Date/Time Associated Diagnosis Comments SCANNED - FOOT EXAM 02/03/2025 URINE CULTURE Routine 01/06/2025 4:57 PM EDT POCT URINALYSIS DIPSTICK, AUTOMATED Routine 01/06/2025 3:49 PM EDT Hematuria, unspecified type HEPATITIS C ANTIBODY Routine 04/16/2023 2:55 PM EDT Encounter for well adult exam without abnormal findings Need for hepatitis C screening test from Last 3 Months or Most Recently Relevant to Health Maintenance Results * FOOT EXAM SCANNED (02/03/2025) Chirag Rea MD CHART REVIEW TABS Fin al Result * Urine Culture - , (01/06/2025 4:57 PM EDT) Urine Culture Final report [facility] Result 1 Comment [facility] Comment: Culture shows less than 10,000 colony forming units of bacteria per milliliter of urine. This colony count is not generally considered to be clinically significant. 01/06/2025 4:57 PM EDT 01/06/2025 Comment: Narrative [facility] ([facility]) - 01/07/2025 8:09 PM EDT Performed at: 01 - [facility] [address] [facility], [place], [place] [id number] Composition Tile Layer: See Apple PhD, Phone: [phone] Patient Fasting: N Chirag Rea MD MICROBIOLOGY - GENERAL O RDERABLES Final Result Performing Organization Address City/[facility]/ZIP Co de Phone Number [facility] (AMBULATORY) [address] [place] [address], [place] [phone] [facility] [address] [place] [address], [place] [phone] * (ABNORMAL) POCT urinalysis dipstick, automated (01/06/2025 3:49 PM EDT) Color Yellow Yellow, Straw, Dark Yellow, Lina [facility] Comment:odor Clarity, UA Cloudy(A) Clear [facility] Specific [place] 1.030 1.005 - 1.030 [facility] pH, Urine 6.0 5.0 - 8.0 [facility] Leukocytes Negative Negative [facility] Nitrite, UA Negative Negative [facility] Protein, POC Negative Negative mg/dL [facility] Glucose, UA Negative Negative mg/dL [facility] Ketones, UA Negative Negative [facility] Urobilinogen, UA Normal Normal, 0.2 E.U./dL [facility] Bilirubin Negative Negative [facility] Blood, UA Trace(A) Negative [facility] Lot Number [id number] [facility] Expiration Date 08/11/2025 [facility] Urine 01/06/2025 3:49 PM EDT Chirag Rea MD POINT OF CARE TEST ORDER [id number] Final Result [facility]
[address] [place] [address], * Hepatitis C antibody (04/16/2023 2:55 PM EDT) Hep C Virus Ab Non Reactive Non Reactive [facility] Comment: HCV antibody alone does not differentiate between previously resolved infection and active infection. Equivocal and Reactive HCV antibody results should be followed up with an HCV RNA test to support the diagnosis of active HCV infection. Blood 04/16/2023 2:55 PM EDT 04/16/2023 Narrative [facility] (AMBULATORY) - 04/17/2023 8:15 AM EDT Performed at: 01 - [facility] [address] [place], [place] [id number] Composition Tile Layer: See Apple PhD, Phone: [phone] Patient Fasting: N Thee [facility] BLOOD ORDERABLES Final Res ult [facility] (AMBULATORY) [address] [place] [address], [facility] [address] [place] [address], from Last 3 Months or Most Recently Relevant to Health Maintenance Insurance MEDICAID [place] MEDICARE A & B Advance Directives Documents on File Type Date Recorded 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
--- OUTSIDE RECORDS SUMMARY | 2025-02-09 09:48 | XMS_ITS | Encounter Summary ---
Author Organization [facility] Address [address] [place] [address] Care Team Providers Care Automobile Club Travel Counselor Name Role Phone Chirag Rea MD Primary Care Provider + Encounter Details Date Type Department Care Team (Latest Contact Info) Description 01/06/2025 Travel Social History Tobacco Use Types Packs/Day [...] on file documented as of this encounter Functional Status documented as of this encounter Plan of Treatment Not on file documented as of this encounter Visit Diagnoses Not on filedocumented in this encounter Care Teams Automobile Club Travel Counselor Relationship Specialty Start Date End Date Chirag Rea MD [address] [place] [address] PCP - General Family Medicine 04/16/23 documented as of this encounter
--- OUTSIDE RECORDS SUMMARY | 2025-02-09 09:48 | XMS_ITS | Clinical Summary ---
Author Organization [facility] Address [address] [place] [address] Care Team Providers Care Director Sterile Processing Name Role Phone Chirag Rea MD Primary Care Provider [phone] Yara Cornejo MD Unavailable [phone] Allergies Active Allergy Reactions Criticality Noted Date Comments Lamotrigine Rash Medium 02/02/2022 Only if taken in higher doses Latex Hives Medium 12/05/2021 Medications ibuprofen 600 MG tablet Take 1 tablet by mouth. 12/17/2023 Active acetaminophen (Tylenol) 325 MG tablet Take 2 tablets by mouth. 06/30/2024 Active lamoTRIgine (LaMICtal) 100 MG tablet Take 1 tablet by mouth in the morning and 1 tablet before bedtime. 09/10/2024 Active QUEtiapine (SEROquel) 200 MG tablet Take 1 tablet by mouth nightly. Active escitalopram (Lexapro) 10 MG tablet Take 1 tablet by mouth daily. Active Active Problems Problem Noted Date Diagnosed Date Intellectual disability 01/07/2025 Cognitive change 09/17/2024 Traumatic brain injury with loss of consciousnes s 09/17/2024 Other general symptoms and signs 09/17/2024 Behavioral problem 09/17/2024 Encounters Date Type Department Care Team Description 01/07/2025 11:00 AM EDT Office Visit [place] [facility] [address] [place] [phone] Yara Cornejo MD Traumatic brain injury with loss of consciousness, sequela (CMS/HCC) (Primary Dx); Behavioral problem; Cognitive change; Intellectual disability 01/07/2025 Travel 12/30/2024 12:41 PM EDT - 12/30/2024 11:59 PM EDT Hospital Encounter [facility] [address] [place] [address] Traumatic brain injury with loss of consciousness, sequela (CMS/HCC) Discharge Disposition: Home or Self Care 12/30/2024 Travel 12/08/2024 Results Follow-Up [facility] [address] [place] [phone] Yara Cornejo MD 12/05/2024 12:21 PM EDT - 12/05/2024 11:59 PM EDT Hospital Encounter [facility] [address] [place] [address] Traumatic brain injury with loss of consciousness, sequela (CMS/HCC) Discharge Disposition: Home or Self Care 12/05/2024 Travel from Last 3 Months Immunizations Immunization Administration Dates Next Due Influenza, injectable, MDCK, preservative free, quadrivalent 04/03/2022,03/18/2020 Influenza, injectable, quadrivalent, preservativ e free 04/16/2023,04/04/2021 Influenza, seasonal, injectable, preservative fr ee 04/01/2024 Moderna Covid-19 Vaccine 12y +, Cristiano Protein, Preservative free 04/01/2024 Tdap 12/17/2023 Social History Tobacco Use Types Packs/Day Years Used Date Smoking Tobacco: Never Smokeless Tobacco: Never Tobacco Cessation:Counseling Given: Not Answered Alcohol Use Standard Drinks/Week Comments Never 0 [...] Mass Index 43.35 01/07/2025 10:49 AM EDT Plan of Treatment Health Maintenance Due Date Last Done Comments [facility]-Depression Screening 1992 [facility]-HIV Screening 1992 [facility]-Medicare Annual Wellness (AWV) 1992 [facility]-Infant/Child/Adol SDOH Screenings 1992 [facility]-Varicella Vaccines (1 of 2 - 13+ 2-dose series) 2005 [facility]- SDOH Screenings 2010 [facility]-Adult SDOH Screenings 2010 [facility]-Hepatitis B Vaccines (1 of 3 - 19+ 3-dose series) 2011 [facility]-Pap Smear 2013 HPV Vaccines (1 - 3-dose SCDM series) 2019 [facility]-Cervical Cancer Screening 2022 [facility]-HPV/Cotest 2022 [facility]-Influenza Vaccine (#1) 02/16/202504/01, 04/16/2023, 04/03/2022, Additional history exists [facility]-DTaP,Tdap,and Td Vaccines (2 - Td or Tdap) 12/16/2033 12/17/2023 [facility]-Zoster Vaccines (1 of 2) 2042 [facility]-Hepatitis C Screening Completed 04/16/2023 [id number] Vaccine Completed 04/01/2024, 04/03/2022, 06/15/2021, Additional history exists [facility]-Obesity Intervention Completed 025, 09/30/2024, 09/17/2024 [facility]-HIB Vaccines Aged Out No longer e ligible based on patient's age to complete this topic [facility]-Hepatitis A Vaccines Aged Out No longer eligible based on patient's age to complete this topic [facility]-IPV Vaccines Aged Out No longer e ligible based on patient's age to complete this topic [facility]-Pneumococcal Vaccine: Pediatrics (0 to 5 Years) and At-Risk Patients (6 to 49 Years) Aged Out No longer eligible based on patient's age to complete this topic [facility]-Rotavirus Vaccines Aged Out No lo nger eligible based on patient's age to complete this topic Procedures Procedure Name Priority Date/Time Associated Diagnosis Comments MR HEAD W AND WO IV CONTRAST Routine 12/30/2024 1:34 PM EDT Traumatic brain injury with loss of consciousness, sequela (CMS/HCC) HC EEG,W/AWAKE & DROWSY RECORD - EEG AWAKE OR DROWSY PORTABLE Routine 12/05/2024 1:15 PM EDT Traumatic brain injury with loss of consciousness, sequela (CMS/HCC) from Last 3 Months Results * MR Head w and wo [...] error, please notify the sender immediately at [phone] and permanently delete the original report and destroy any copies or printouts. Narrative 12/30/2024 3:55 PM EDT [facility]PT [facility] - Phone Outpatient NAME: Slim Montelongo DATE OF EXAM: 12/30/2024 Patient No: [id number] Physician: Osmar Date of : 1990 Past [...] Barnhart MD - 12/30/2024 [facility] - Phone Outpatient NAME: Slim Montelongo DATE OF EXAM: 12/30/2024 Patient No: [id number] Physician: Osmar Date of : 1990 Past [...] in error, pleasenotify the sender immediately at [phone] and permanently delete theoriginal report and destroy any copies or printouts. Yara Cornejo MD IMG MRI PROCEDURES Final Res ult * EEG (12/05/2024 1:15 PM EDT) Anatomical Region Laterality Modality EEG Narrative 12/05/2024 3:03 PM EDT Table formatting from the original result was not included. Electroencephalogram Report Patient: Slim Montelongo : 1990 SEX: female Referring Provider: Yara Cornejo MD EEG Reading Physician: Bam Walker MD Study Type: R-OP Begin Date: 12/05/2024 Begin Time: 12:49 PM End Date: 12/05/2024 End Time: 1:15 PM Total EEG Recording Time: 26 minutes Medications: Current Medications[1] Reason for EE34 year old female with concern for seizures. Video EEG requested to evaluate for epileptiform abnormalities. Technical Summary: This EEG was performed with a 21 channel EEG machine with electrodes placed according to the international 10-20 system of placement. A dedicated channel was used for EKG. Video recording during the study was also performed. Longitudinal and coronal bipolar montages and ear reference montages were used with usual gain and filter settings. Record Quality: The record is of good technical quality for purposes of interpretation. Background: During the maximal awake state, a posterior dominant rhythm of 10 Hz was seen. It was well regulated, well sustained, symmetric, and reactive to eye opening. Anterior background predominantly consisted of polymorphic low amplitude activity in the alpha range. Interictal: No interictal epileptiform discharges or other abnormalities were seen. Ictal/Events: No clinical or electrographic ictal events were seen. No clinical events were seen. Hyperventilation: Performed for 3 minutes with good effort. No abnormalities were seen. Photic Stimulation: Performed at various flash frequencies. No abnormalities were seen. Sleep: Remained awake. Impression: This EEG is normal in the awake-only state. There were no clinical/electrographic seizures, interictal epileptiform discharges, or other focal abnormalities seen. Bam Walker MD [1] Current Outpatient Medications Medication Sig Dispense Refill acetaminophen (Tylenol) 325 MG tablet Take 2 tablets by mouth. benztropine (Cogentin) 0.5 MG tablet Take 1 tablet by mouth in the morning and 1 tablet before bedtime. citalopram (CeleXA) 40 MG tablet TAKE 1 TABLET BY MOUTH DAILY FOR SLEEP clonazePAM (KlonoPIN) 0.5 MG tablet TAKE 1 TABLET BY MOUTH TWICE DAILY NEEDED FOR AGITATION ibuprofen 600 MG tablet Take 1 tablet by mouth. lamoTRIgine (LaMICtal) 100 MG tablet Take 1 tablet by mouth in the morning and 1 tablet before bedtime. metFORMIN (Glucophage) 500 MG tablet Take 1 tablet by mouth daily with breakfast. PARoxetine (Paxil) 40 MG tablet Take 1 tablet by mouth daily. traZODone (Desyrel) 50 MG tablet Take 1 tablet by mouth daily. Vraylar 4.5 MG capsule Take 1 capsule by mouth daily. No current facility-administered medications for this encounter. Yara Cornejo MD NEUROLOGY ORDERABLES Final R esult from Last 3 Months Insurance MEDICAID-[place] MEDICARE Care Teams Director Sterile Processing Relationship Specialty Start Date End Date Chirag Rea MD [address] [place] [address] PCP - General 09/17/24 Yara Corenjo MD [address] [facility] [address] [place] [address] Service Attending Neuro-Ophthalmology 01/07/25
--- OUTSIDE RECORDS SUMMARY | 2025-02-09 09:48 | XMS_ITS | Encounter Summary ---
Author Organization [facility] Address [address] [place] [address] Care Team Providers Care Quantitative Researcher Name Role Phone Chirag Rea MD Primary Care Provider + Encounter Details Date Type Department Care Team (Late st Contact Info) Description 01/08/2025 Results Follow-Up [facility] [address] [place] [address] Chirag Rea MD [address] [place] [address] Social History Tobacco Use Types Packs/Day Years [...] on filedocumented in this encounter Care Teams Quantitative Researcher Relationship Specialty Start Date End Date Chirag Rea MD [address] [place] [address] PCP - General Family Medicine 04/16/23 documented as of this encounter
[2025-02-09 10:08] LABS: Albumin Level 4.7 g/dl (3.5-5.0); Chloride 110 mmol/L (98-107); Potassium 4.3 mmoL/L (3.5-5.1); Sodium 143 mmol/L (136-145)
[2025-02-09 10:11] LABS: Alanine Aminotransferase 17 U/L (12-78); Albumin/Globulin Ratio 1.7 (1.1-1.8); Alkaline Phosphatase 94 U/L (38-126); Anion Gap 14.3 mEq/L (5-15); Aspartate Amino Transferase 24 U/L (14-36); Bilirubin,Total 0.6 mg/dl (0.2-1.3); Blood Urea Nitrogen 17 mg/dl (7-17); Carbon Dioxide 23 mmol/L (22.0-30.0); Creatinine,Serum 0.90 mg/dl (0.52-1.04); Estimated Glomerular Filt Rate 73 ml/min (>60); GFR (African American) 88 ML/MIN (>60); Globulin 2.8 g/dL (1.3-3.2); Total Protein,Serum 7.5 g/dl (6.3-8.2)
[2025-02-09 10:12] LABS: Calcium 9.6 mg/dl (8.4-10.2); Glucose 110 mg/dl (74-100)
[2025-02-09 10:30] LABS: Free T4 (Free Thyroxine) 1.16 ng/dl (0.78-2.19)
[2025-02-09 10:45] LABS: Thyroid Stimulating Hormone 2.70 uIU/mL (0.465-4.68)
== END 2025-02-09 23:59 | disposition home or self-care (01) ==
LOC: LAB 09:11
PROVIDERS: PCP Family Medicine; Visit Provider Nurse Practitioner Acute Care
DX: F25.0 Schizoaffective disorder, bipolar type (principal)
CPT/HCPCS: 36415; 80053; 84439; 84443; 85025

== ENCOUNTER 2025-02-23 13:58 | Outpatient (CLI) | payer MEDICARE, MEDICAID, SELFPAY ==
--- OUTSIDE RECORDS SUMMARY | 2024-12-30 12:41 | XMS_ITS | Encounter Summary ---
Author Organization Healthcare Address [address] [id number] Care Team Providers Care Polisher Numeral Name Role Phone Chirag Rea MD Primary Care Provider [phone] Reason for Referral * Imaging (Routine) - Closed Specialty Diagnoses / Procedures Referred By Contac t Referred To Contact Radiology Diagnoses Traumatic brain injury with loss of consciousness, sequela (CMS/HCC) Procedures MR Head w and wo IV Contrast Yara Cornejo MD [address] [address] Phone: tel: fax: Referral ID Status Reason Start Date Expiration Date Visits Re quested Visits Authorized [id number] Closed 09/17/2024 03/19/2026 1 1 Reason for Visit * Imaging (Routine) - Closed Specialty Diagnoses / Procedures Referred By Contac t Referred To Contact Radiology Diagnoses Traumatic brain injury with loss of consciousness, sequela (CMS/HCC) Procedures MR Head w and wo IV Contrast Yara Cornejo MD [address] [address] Phone: tel: fax: Referral ID Status Reason Start Date Expiration Date Visits Re quested Visits Authorized [id number] Closed 09/17/2024 03/19/2026 1 1 Encounter Details Date Type Department Care Team (Latest Contact Info) Description 12/30/2024 12:41 PM EDT - 12/30/2024 11:59 PM EDT Hospital Encounter [facility] MRI [address] [place] [address] Traumatic brain injury with loss of consciousness, sequela (CMS/HCC) Discharge Disposition: Home or Self Care Social History Tobacco Use Types Packs/Day Years Used Date Smoking Tobacco: Never Smokeless Tobacco: Never Alcohol Use Standard Drinks/Week Comments Never 0 (1 standard drink = 0.6 oz pur e alcohol) Comments Unknown Sex and Gender Information Value Date Recorded Sex Assigned at Not on file Legal Sex Female 8:23 PM EDT Gender Identity Not on file Sexual Orientation Not on file documented as of this encounter Medications at Time of Discharge acetaminophen (Tylenol) 325 MG tablet Take 2 tablets by mouth. 06/30/2024 ibuprofen 600 MG tablet Take 1 tablet by mouth. 12/17/2023 lamoTRIgine (LaMICtal) 100 MG tablet Take 1 tablet by mouth in the morning and 1 tablet before bedtime. 09/10/2024 benztropine (Cogentin) 0.5 MG tablet Take 1 tablet by mouth in the morning and 1 tablet before bedtime. 05/09/2024 citalopram (CeleXA) 40 MG tablet TAKE 1 TABLET BY MOUTH DAILY FOR SLEEP 09/01/2024 clonazePAM (KlonoPIN) 0.5 MG tablet TAKE 1 TABLET BY MOUTH TWICE DAILY NEEDED FOR AGITATION 10/29/2023 metFORMIN (Glucophage) 500 MG tablet Take 1 tablet by mouth daily with breakfast. 05/28/2024 PARoxetine (Paxil) 40 MG tablet Take 1 tablet by mouth daily. 09/01/2024 traZODone (Desyrel) 50 MG tablet Take 1 tablet by mouth daily. Vraylar 4.5 MG capsule Take 1 capsule by mouth daily. documented as of this encounter Plan of Treatment Not on file documented as of this encounter Procedures Procedure Name Priority Date/Time Associated Diagnosis Comments MR HEAD W AND WO IV CONTRAST Routine 12/30/2024 1:34 PM EDT Traumatic brain injury with loss of consciousness, sequela (CMS/HCC) documented in this encounter Results * MR Head w and wo IV Contrast (12/30/2024 1:34 PM EDT) Anatomical Region Laterality Modality Head Magnetic Resonan ce Impressions 12/30/2024 3:55 PM EDT No acute abnormality. Robert Barnhart M.D. This report has been electronically signed and verified by the Radiologist whose name is printed above. This report contains privileged and confidential information and is intended solely for the use of the individual or entity to which it is addressed. If you are not the intended recipient of this report, you are hereby notified that any copying, distribution, dissemination or action taken in relation to the contents of this report is strictly prohibited and may be unlawful. If you have received this report in error, please notify the sender immediately at [phone] and permanently delete the original report and destroy any copies or printouts. Narrative 12/30/2024 3:55 PM EDT [facility] - Phone Outpatient NAME: Slim Montelongo DATE OF EXAM: 12/30/2024 Patient No: [id number] Physician: Osmar Date of : 1990 Past Medical/Surgical History (entered by technologist): Symptoms/Reason For Exam (entered by technologist): Tech Notes (entered by technologist): EXAM: MRI brain with and without intravenous contrast INDICATION: 34-year-old female with headache. History of traumatic brain injury. TECHNIQUE: Multiplanar, multisequence magnetic resonance imaging of the brain was performed with and without intravenous contrast on a 3 Alicja magnet and using 10.7 cc of Gadavist. COMPARISON: None FINDINGS: No acute infarct, hemorrhage, or herniation. No extra-axial fluid collection. Lopez-white matter differentiation is preserved. Ventricular size and morphology is normal for patient age. Basal cisterns are patent. Paranasal sinuses and mastoid air cells are clear. Scalp and calvarium appear unremarkable. Procedure Note Robert Barnhart MD - 12/30/2024 [facility] Out[facility] NAME: Slim Montelongo Christopher DATE OF EXAM: 12/30/2024 Patient No: [id number] Physician: Osmar Date of : 1990 Past Medical/Surgical History (entered by technologist): Symptoms/Reason For Exam (entered by technologist): Tech Notes (entered by technologist): EXAM: MRI brain with and without intravenous contrast INDICATION: 34-year-old female with headache. History of traumatic braininjury. TECHNIQUE: Multiplanar, multisequence magnetic resonance imaging of thebrain was performed with and without intravenous contrast on a 3 Teslamagnet and using 10.7 cc of Gadavist. COMPARISON: None FINDINGS: No acute infarct, hemorrhage, or herniation. No extra-axial fluidcollection. Lopez-white matter differentiation is preserved. Ventricular size and morphology is normal for patient age. Basal cisternsare patent. Paranasal sinuses and mastoid air cells are clear. Scalp and calvariumappear unremarkable. IMPRESSION: No acute abnormality. Robert Barnhart M.D. This report has been electronically signed and verified by the Radiologistwhose name is printed above. This report contains privileged and confidential information and isintended solely for the use of the individual or entity to which it isaddressed. If you are not the intended recipient of this report, you arehereby notified that any copying, distribution, dissemination or actiontaken in relation to the contents of this report is strictly prohibitedand may be unlawful. If you have received this report in error, pleasenotify the sender immediately at [phone] and permanently delete theoriginal report and destroy any copies or printouts. Yara Cornejo MD IMG MRI PROCEDURES Final Res ult documented in this encounter Visit Diagnoses Diagnosis Traumatic brain injury with loss of consciousness, sequela (CMS/HCC) documented in this encounter Administered Medications Inactive Administered Medications - up to 3 most recent administrations Medication Order MAR Action Action Date Dose Rate Site gadobutrol (Gadavist) injection 10.7 mL 10.7 mL (0.1 mL/kg 107 kg), Intravenous, Once in imaging, 1 dose, Starting on Sun12/30/24 at 1257, Until Tu12/30/24 at 1323, Routine, Imaging Protocol Orders Given 12/30/2024 1:23 PM EDT 10.7 mL Left Antecubital documented in this encounter Additional Health Concerns Assessment Noted Time A fall risk assessment has been complete d for the patient 09/17/2024 9:31 AM EDT A Body Mass Index follow-up plan has been documented for the patient 10/15/2024 11:14 AM EDT documented as of this encounter Care Teams Polisher Numeral Relationship Specialty Start Date End Date Chirag Rea MD [address] [place] [address] PCP - General 09/17/24 documented as of this encounter
--- OUTSIDE RECORDS SUMMARY | 2025-01-06 16:30 | XMS_ITS | Encounter Summary ---
Author Organization [facility] Address [address] [place] [address] Care Team Providers Care Chimney Repairer Name Role Phone Chirag Rea MD Primary Care Provider + Reason for Visit * Reason Comments Follow-up [facility] f/u, UTI- still having burning with urination. Encounter Details Date Type Department Care Team (Late st Contact Info) Description 01/06/2025 4:30 PM EDT Office Visit [facility] [address] [place] [address] Chirag Rea MD [address] [place] [address] Hematuria, unspecified type (Primary Dx); Mood disorder; Urinary tract infection without hematuria, site unspecified Social History Tobacco Use Types Packs/Day Years Used Date Smoking Tobacco: Never Smokeless Tobacco: Never Alcohol Use Standard Drinks/Week Comments Never 0 (1 standard drink = 0.6 oz pur e alcohol) PHQ-2 Answer Date Recorded Retired PHQ-9: Brief Depression Severity Measure Score 10 04/16/2023 PHQ-2 Answer Date Recorded Patient Health Questionnaire-2 Score 1 01/06/2025 Comments Unknown Sex and Gender Information Value Date Recorded Sex Assigned at Not on file Legal Sex Female 11:21 AM EDT Gender Identity Not on file Sexual Orientation Not on file documented as of this encounter Last Filed Vital Signs Vital Sign Reading Time Taken Comments Blood Pressure 112/68 01/06/2025 3:38 PM EDT Pulse 72 01/06/2025 3:38 PM EDT Temperature 36.8 C (98.2 F) 01/06/2025 3:38 PM EDT Respiratory Rate 18 01/06/2025 3:38 PM EDT Oxygen Saturation 99% 01/06/2025 3:38 PM EDT Inhaled Oxygen Concentration - - Weight 107 kg (236 lb 9.6 oz) 01/06/2025 3:38 PM EDT Height 157.5 cm (5' 2 ) 01/06/2025 3:38 PM EDT Body Mass Index 43.27 01/06/2025 3:38 PM EDT documented in this encounter Functional Status documented as of this encounter Progress Notes * Chirag Rea MD - 01/06/2025 4:30 PM EDT Chief Complaint Patient presents with Follow-up [facility] f/u, UTI- still having burning with urination. Subjective Slim Montelongo is a 34 y.o. who presents for follow-up of a 1 week stay at [facility] for cristhian. Adjustments were made to medications and she is now on Seroquel 200 mg nightly, lamotrigine 50 mg, Lexapro 10 mg. She is accompanied by her father who provides history and statesthat the patient seems to be doing better. During her stay she was found to have a urinary tract infection and has completed 10 days of Macrobid but reports persistence of severe dysuria. The following portions of the patient's history were reviewed and updated as appropriate: allergies, current medications, past family history, past medical history, past social history, past surgicalhistory, and problem list. Review of Systems Objective Vital Signs: BP 112/68 Pulse 72 Temp 98.2 ??F (36.8 ??C) Resp 18 Ht 157.5 cm (62 ) Wt 107 kg (236 lb 9.6 oz) SpO2 99% BMI 43.27 kg/m?? Physical Exam Vitals reviewed. Constitutional: Appearance: Normal appearance. HENT: Head: Normocephalic and atraumatic. Right Ear: External ear normal. Left Ear: External ear normal. Nose: Nose normal. Mouth/Throat: Mouth: Mucous membranes are moist. Pharynx: Oropharynx is clear. Eyes: Conjunctiva/sclera: Conjunctivae normal. Pulmonary: Effort: No respiratory distress. Abdominal: General: Abdomen is flat. Bowel sounds are normal. Palpations: Abdomen is soft. Musculoskeletal: Cervical back: Normal range of motion and neck supple. No tenderness. Lymphadenopathy: Cervical: No cervical adenopathy. Skin: General: Skin is warm and dry. Neurological: Mental Status: She is alert. Psychiatric: Mood and Affect: Mood normal. Result Review The following data was reviewed by: Chirag Rea MD on 01/06/2025: UA 01/06/2025 15:49 Urinalysis Ketones, UA Negative Leukocytes, UA Negative Assessment and Plan Diagnoses and all orders for this visit: 1. Hematuria, unspecified type (Primary) - POCT urinalysis dipstick, automated - Cancel: POC Urinalysis Dipstick - Urine Culture - Urine, Urine, Clean Catch; Future 2. Mood disorder Comments: Mood is now stable. Continue current medications 3. Urinary tract infection without hematuria, site unspecified Comments: Start Bactrim. Urine culture ordered Orders: - sulfamethoxazole-trimethoprim (Bactrim DS) 800-160 MG per tablet; Take 1 tablet by mouth 2 (Two) Times a Day for 7 days. Dispense: 14 tablet; Refill: 0 Follow Up No follow-ups on file. Patient was given instructions and counseling regarding her condition or for health maintenance advice. Please see specific information pulled into the AVS if appropriate. documented in this encounter Plan of Treatment Scheduled Orders Name Type Priority Associated Diagnoses Orde r Schedule Urine Culture - Urine, Urine, Clean Catch Microbiology Routine Hematuria, unspecified type Expected: 01/06/2025 (Approximate), Expires: 04/08/2026 documented as of this encounter Procedures Procedure Name Priority Date/Time Associated Diagnosis Comments POCT URINALYSIS DIPSTICK, AUTOMATED Routine 01/06/2025 3:49 PM EDT Hematuria, unspecified type documented in this encounter Results * (ABNORMAL) POCT urinalysis dipstick, automated (01/06/2025 3:49 PM EDT) Color Yellow Yellow, Straw, Dark Yellow, Lina [facility] Comment:odor Clarity, UA Cloudy(A) Clear [facility] Specific [place] 1.030 1.005 - 1.030 [facility] pH, Urine 6.0 5.0 - 8.0 [facility] Leukocytes Negative Negative [facility] Nitrite, UA Negative Negative [facility] Protein, POC Negative Negative mg/dL [facility] Glucose, UA Negative Negative mg/dL [facility] Ketones, UA Negative Negative [facility] Urobilinogen, UA Normal Normal, 0.2 E.U./dL [facility] Bilirubin Negative Negative [facility] Blood, UA Trace(A) Negative [facility] Lot Number [id number] [facility] Expiration Date 08/11/2025 [facility] Urine 01/06/2025 3:49 PM EDT us Chirag Rea MD POINT OF CARE TEST ORDER JYOTI Final Result [facility]
[address] [place] [address], documented in this encounter Visit Diagnoses Diagnosis Hematuria, unspecified type- Primary Mood disorder Unspecified episodic mood disorder Urinary tract infection without hematuria, site unspecified documented in this encounter Care Teams Chimney Repairer Relationship Specialty Start Date End Date Chirag Rea MD [address] [place] [address] PCP - General Family Medicine 04/16/23 documented as of this encounter
--- OUTSIDE RECORDS SUMMARY | 2025-01-07 11:00 | XMS_ITS | Encounter Summary ---
Author Organization Healthcare Address [address] [place] [address] Care Team Providers Care Graphic Design Assistant Name Role Phone Chirag Rea MD Primary Care Provider [phone] Yara Cornejo MD Unavailable Reason for Visit * Reason Comments Follow-up Encounter Details Date Type Department Care Team (Late st Contact Info) Description 01/07/2025 11:00 AM EDT Office Visit [place] [facility] [address], [address] [place] [address] Yara Cornejo MD [address] [place] [address] Traumatic brain injury with loss [...] stairwell. Developed Head injury - happened in [place], [place]. Hospitalized for 48 hours, mother can't [...] Dr. Saloni Coleman, also saw neurology in [place] Reports Little headache at least once a [...] Followed by psychiatric nurse practitioner. Sarah perez, psychiatric registered nurse, Lisa Mishra - now forMood and behavioral changes- choked her family cat. Patient says she Works at [employer] - 3 days a week - from 3 to 6 pm , [employer] 2/week - this is TYPE OF OCCUPATIONAL [...] Has been hearing auditory hallucinations Admitted in [facility] for 1 week in end of November [...] Sees behavioral counsellor. Sees behavioral and psychiatry [employer]- Tracy Mishra. Mother was requesting for a [...] Plantar responses were downgoing. Coordination/Cerebellar: Intact to [id number], Gait: walks normally , walks on heel [...] documented as of this encounter Care Teams Graphic Design Assistant Relationship Specialty Start Date End Date Chirag Rae MD [address] [place] [address] PCP - General 09/17/24 Yara Cornejo MD [address] [place] [address] Service Attending Neuro-Ophthalmology 01/07/25 documented as of this encounter
--- OUTSIDE RECORDS SUMMARY | 2025-02-23 14:00 | XMS_ITS | Encounter Summary ---
Author Organization Healthcare Address [address] [place] [address] Care Team Providers Care Direct Care Staffer Name Role Phone Chirag Rea MD Primary Care Provider [phone] Encounter Details Date Type Department Care Team [...] documented as of this encounter Care Teams Direct Care Staffer Relationship Specialty Start Date End Date Chirag Rea MD [address] [place] [address] PCP - General 09/17/24 documented as of this encounter
--- OUTSIDE RECORDS SUMMARY | 2025-02-23 14:00 | XMS_ITS | Clinical Summary ---
Author Organization [facility] Address [address] [place] [address] Care Team Providers Care Construction Area Manager Name Role Phone Chriag Rea MD Primary Care Provider [phone] Yara Cornejo MD Unavailable [phone] Allergies Active Allergy Reactions Criticality Noted Date [...] [address] [place] [address] Yara Cornejo MD Traumatic brain injury with loss of consciousness, sequela (CMS/HCC) (Primary Dx); Behavioral problem; Cognitive change; Intellectual disability 01/07/2025 Travel 12/30/2024 12:41 PM EDT - 12/30/2024 11:59 PM EDT Hospital Encounter [facility] [address] [place] [address] Traumatic brain injury with loss of consciousness, sequela (CMS/HCC) Discharge Disposition: Home or Self Care 12/30/2024 Travel 12/08/2024 Results Follow-Up [facility] [address] [place] [phone] Yara Cornejo MD 12/05/2024 12:21 PM EDT - 12/05/2024 11:59 PM EDT Hospital Encounter [facility] [address] [place] [address] Traumatic brain injury with loss of consciousness, [...] 2) 2042 [facility]-Hepatitis C Screening Completed 04/16/2023 [id number] Vaccine Completed 04/01/2024, 04/03/2022, 06/15/2021, Additional history [...] error, please notify the sender immediately at [phone] and permanently delete the original report and destroy any copies or printouts. Narrative 12/30/2024 3:55 PM EDT [facility] - Phone Outpatient NAME: Slim Montelongo DATE OF EXAM: 12/30/2024 Patient No: [id number] Physician: Osmar Date of : 1990 Past [...] Montelongo DATE OF EXAM: 12/30/2024 Patient No: [id number] Physician: Osmar Date of : 1990 Past [...] in error, pleasenotify the sender immediately at [phone] and permanently delete theoriginal report and destroy [...] 3 Months Insurance [place]ICARE Care Teams Construction Area Manager Relationship Specialty Start Date End Date Chirag Rea MD [address] [place] [address] PCP - General 09/17/24 Yara Cornejo MD [address] [facility] [address] [place] [address] Service Attending Neuro-Ophthalmology 01/07/25
--- OUTSIDE RECORDS SUMMARY | 2025-02-23 14:00 | XMS_ITS | Encounter Summary ---
Author Organization Healthcare Address [address] [place] [address] Care Team Providers Care Electric Mule Driver Name Role Phone Chirag Rea MD Primary Care Provider [phone] Yara Cornejo MD Unavailable [phone] Encounter Details Date Type Department Care Team (Late st Contact Info) Description 08/19/2021 Orders Only External Location [address] [place] [address] Provider, External Social History Tobacco [...] on filedocumented in this encounter Care Teams Electric Mule Driver Relationship Specialty Start Date End Date Chirag Rea MD [address] [place] [address] PCP - General 09/17/24 Yara Cornejo MD [address] [facility] [address] [place] [address] Service Attending Neuro-Ophthalmology 01/07/25 documented as of this encounter
--- OUTSIDE RECORDS SUMMARY | 2025-02-23 14:00 | XMS_ITS | Clinical Summary ---
Author Organization [facility] Address [address] [place] [address] Care Team Providers Care Newspaper Vendor Name Role Phone Chirag Rea MD Primary [...] tablet by mouth Every Night. 5 Active Active Problems Problem Noted Date Diagnosed [...] Type Department Care Team Description 01/20/[address] [facility] MEDICINE [address] [place] [address] Chirag Rea MD VERBAL ORDER REQUEST ON PLAN OF CARE 01/08/2025 Results Follow-Up [facility] [address] [place] [address] Chirag Rea MD 01/06/2025 4:30 PM EDT Office Visit [facility] [address] [place] [address] Chirag Rea MD Hematuria, unspecified type (Primary [...] Priority Date/Time Associated Diagnosis Comments SCANNED - LABS 02/09/2025 SCANNED - LABS 02/09/2025 SCANNED - FOOT EXAM 02/03/2025 URINE CULTURE Routine 01/06/2025 4:57 PM EDT POCT URINALYSIS DIPSTICK, AUTOMATED Routine 01/06/2025 3:49 PM EDT Hematuria, unspecified type HEPATITIS C ANTIBODY Routine 04/16/2023 2:55 PM EDT Encounter for well adult exam without abnormal findings Need for hepatitis C screening test from Last 3 Months or Most Recently Relevant to Health Maintenance Results * LABS SCANNED (02/09/2025) Only the most recent of2 resultswithin the time period is included. Chirag Rea MD LAB BLOOD ORDERABLES Fin al Result * FOOT EXAM SCANNED (02/03/2025) Chirag Rea [...] clinically significant. 01/06/2025 4:57 PM EDT 01/06/2025 Comment:UC Narrative [facility] (AMBULATORY) - 01/07/2025 8:09 PM EDT Performed at: 01 - [facility] [address] [place], [place] [id number] Baker Helper: See Apple PhD, Phone: [phone] Patient Fasting: N Chirag Rea MD MICROBIOLOGY - GENERAL O RDERABLES Final Result Performing Organization Address City/[facility]/ZIP Co de Phone Number [facility] (AMBULATORY) [address] [place] [address], [place] [phone] [facility] [address] [place] [address], [place] [phone] * (ABNORMAL) POCT urinalysis dipstick, automated (01/06/2025 3:49 PM EDT) Color Yellow Yellow, Straw, Dark Yellow, Lina [facility] Comment:odor Clarity, UA Cloudy(A) Clear [facility] Specific Vantage 1.030 1.005 - 1.030 [facility] pH, Urine 6.0 5.0 - 8.0 [facility] Leukocytes Negative Negative [facility] Nitrite, UA Negative Negative [facility] Protein, POC Negative Negative mg/dL [facility] Glucose, UA Negative Negative mg/dL [facility] Ketones, UA Negative Negative [facility] Urobilinogen, UA Normal Normal, 0.2 E.U./dL [facility] Bilirubin Negative Negative [facility] Blood, UA Trace(A) Negative [facility] Lot Number [id number] [facility] Expiration Date 08/11/2025 [facility] Urine 01/06/2025 3:49 PM EDT Chirag Rea MD POINT OF CARE TEST ORDER [id number] Final Result [facility]
[address] [place] [address], * Hepatitis C antibody (04/16/2023 2:55 PM EDT) Hep C Virus Ab Non Reactive Non Reactive [facility] Comment: HCV antibody alone does not differentiate between previously resolved infection and active infection. Equivocal and Reactive HCV antibody results should be followed up with an HCV RNA test to support the diagnosis of active HCV infection. Blood 04/16/2023 2:55 PM EDT 04/16/2023 Narrative [facility] (AMBULATORY) - 04/17/2023 8:15 AM EDT Performed at: 01 - [facility] [address] [place] [id number] Baker Helper: See Apple PhD, Phone: [phone] Patient Fasting: N Thee [facility] BLOOD ORDERABLES Final Res ult [facility] (AMBULATORY) [address] [place] [address], [facility] [address] [place] [address], from Last 3 Months or Most Recently Relevant to Health Maintenance Insurance MEDICAID [place] MEDICARE A & B Advance Directives Documents on File Type Date Recorded 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
--- OUTSIDE RECORDS SUMMARY | 2025-02-23 14:00 | XMS_ITS | Encounter Summary ---
Author Organization Healthcare Address [address] [place] [address] Care Team Providers Care Telecine Operator Name Role Phone Chirag Rea MD Primary Care Provider [phone] Yara Cornejo MD Unavailable [phone] Encounter Details Date Type Department Care Team (Late st Contact Info) Description 12/08/2024 Results Follow-Up [facility] [address] [place] [address] Yara Cornejo MD [address] [facility] [address] [place] [address] Social History Tobacco Use Types [...] documented as of this encounter Care Teams Telecine Operator Relationship Specialty Start Date End Date Chirag Rea MD [address] [place] [address] PCP - General 09/17/24 Yara Cornejo MD [address] [place] [id number] Service Attending Neuro-Ophthalmology 01/07/25 documented as of this encounter
--- OUTSIDE RECORDS SUMMARY | 2025-02-23 14:00 | XMS_ITS | Encounter Summary ---
Author Organization Healthcare Address [address] [place] [address] Care Team Providers Care Night Time Babysitter Name Role Phone Chirag Rea MD Primary Care Provider Yara Cornejo MD Unavailable [phone] Encounter Details Date Type Department Care Team [...] documented as of this encounter Care Teams Night Time Babysitter Relationship Specialty Start Date End Date Chirag Rea MD [address] [place] [address] PCP - General 09/17/24 Yara Cornejo MD [address] [facility] [address] [place] [address] Service Attending Neuro-Ophthalmology 01/07/25 documented as of this encounter
--- OUTSIDE RECORDS SUMMARY | 2025-02-23 14:01 | XMS_ITS | Encounter Summary ---
[facility] Organization [facility] Address [address] [place] [address] Care Team Providers Care Mill And Coal Transport Operator Name Role Phone Chirag Rea MD Primary Care Provider + Reason for Visit * Reason Onset Date Comments VERBAL ORDER REQUEST ON PLAN OF CARE 01/20/2025 Encounter Details Date Type Department Care Team (Late st Contact Info) Description 01/20/2025 Telephone [facility] FAMILY MEDICINE [address] [place] [address] Chirag Rea MD [address] [place] [address] VERBAL ORDER REQUEST ON PLAN [...] - 01/20/2025 3:12 PM EDT LOLY WITH [facility] HAS CALLED REQUESTING A CALL BACK WITH A VERBAL STATING THERE HAS BEEN NO CHANGE IN PATIENT PLAN OF CARE FOR THE THIRD QUARTER. CALLL BACK NUMBER IS [phone] OR [phone] HERMILO LEÓN documented in this encounter Plan of Treatment Not on file documented as of this encounter Visit Diagnoses Not on filedocumented in this encounter Care Teams Mill And Coal Transport Operator Relationship Specialty Start Date End Date Chirag Rea MD [address] [place] [address] PCP - General Family Medicine 04/16/23 documented as of this encounter
--- OUTSIDE RECORDS SUMMARY | 2025-02-23 14:01 | XMS_ITS | Encounter Summary ---
[facility] Address [address] [place] [address] Care Team Providers Care Auto Damage Trainee Name Role Phone Chirag Rea MD Primary Care Provider + Encounter Details Date Type Department Care Team (Late st Contact Info) Description 01/08/2025 Results Follow-Up [facility] FAMILY MEDICINE [address] [place] [address] Chirag Rea MD [address] [place] [address] Social History Tobacco Use Types [...] on filedocumented in this encounter Care Teams Auto Damage Trainee Relationship Specialty Start Date End Date Chirag Rea MD [address] [place] [address] PCP - General Family Medicine 04/16/23 documented as of this encounter
--- OUTSIDE RECORDS SUMMARY | 2025-02-23 14:01 | XMS_ITS | Encounter Summary ---
Author Organization [facility] Address [address] [place] [address] Care Team Providers Care Lead Portfolio Manager Name Role Phone Chirag Rea MD Primary [...] on filedocumented in this encounter Care Teams Lead Portfolio Manager Relationship Specialty Start Date End Date Chirag Rea MD [address] [place] [address] PCP - General Family Medicine 04/16/23 documented as of this encounter
[2025-02-23 16:29] LABS: Alanine Aminotransferase 21 U/L (12-78); Albumin Level 4.6 g/dl (3.5-5.0); Albumin/Globulin Ratio 1.6 (1.1-1.8); Alkaline Phosphatase 69 U/L (38-126); Anion Gap 15.2 mEq/L (5-15); Aspartate Amino Transferase 26 U/L (14-36); Bilirubin,Total 0.6 mg/dl (0.2-1.3); Blood Urea Nitrogen 14 mg/dl (7-17); Calcium 10.4 mg/dl (8.4-10.2); Carbon Dioxide 27 mmol/L (22.0-30.0); Chloride 101 mmol/L (98-107); Creatinine,Serum 0.90 mg/dl (0.52-1.04); Estimated Glomerular Filt Rate 73 ml/min (>60); GFR (African American) 88 ML/MIN (>60); Globulin 2.8 g/dL (1.3-3.2); Glucose 108 mg/dl (74-100); Potassium 4.2 mmoL/L (3.5-5.1); Sodium 139 mmol/L (136-145); Total Protein,Serum 7.4 g/dl (6.3-8.2)
== END 2025-02-23 23:59 | disposition home or self-care (01) ==
LOC: LAB 13:58
PROVIDERS: PCP Family Medicine; Visit Provider Nurse Practitioner Acute Care
DX: F25.9 Schizoaffective disorder, unspecified (principal)
CPT/HCPCS: 36415; 80053; 80178

== ENCOUNTER 2025-04-03 11:53 | Outpatient (CLI) | payer MEDICARE, MEDICAID, SELFPAY | END 2025-04-03 23:59 | LOC: LAB.DROPOF 04-06 11:54 | PROVIDERS: PCP Family Medicine; Visit Provider Student in an Organized Health Care Education/Training Program | DX: N39.0 Urinary tract infection, site not specified (principal) | CPT/HCPCS: 87086 ==

== ENCOUNTER 2025-04-27 12:15 | Outpatient (CLI) | payer MEDICARE, MEDICAID, SELFPAY ==
--- OUTSIDE RECORDS SUMMARY | 2025-03-04 19:34 | XMS_ITS | Encounter Summary ---
Author Organization Healthcare Address [address] [place] [address] Care Team Providers Care Roof Technician Name Role Phone Chirag Rea MD Primary Care Provider [phone] Yara Cornejo MD Unavailable [phone] Reason for Visit * Reason Comments Hallucinations * Auth/Cert (Routine) Specialty Diagnoses / Procedures Referred By Contdaquan t Referred To Contact Diagnoses Behavior disturbance Intellectual disability Psychosis, unspecified psychosis type (CMS/HCC) Hafsa Lorenzo, DO [address] [place] [address] Phone: tel: fax: [facility] Inpatient Psychiatry [address] [place] [address] Phone: tel: Referral ID Status Reason Start Date Expiration Date Visits Re quested Visits Authorized [id number] 1 1 Encounter Details Date Type Department Care Team (Latest Contact Info) Description 03/04/2025 8:34 PM EDT - 03/10/2025 4:20 PM EDT Hospital Encounter [facility] Inpatient Psychiatry [address] [place] [address] Mirian Moran, DO [address] [place] [address] Hafsa Lorenzo, DO [address] [place] [address] Intellectual disability (Primary Dx); Behavior disturbance Discharge Disposition: Home or Self Care Social History Tobacco Use Types Packs/Day Years Used Date Smoking Tobacco: Never Smokeless Tobacco: Never Alcohol Use Standard Drinks/Week Comments Never 0 (1 standard drink = 0.6 oz pur e alcohol) PHQ-2 Answer Date Recorded Patient Health Questionnaire-2 Score 2 03/04/2025 PHQ-9 Answer Date Recorded Patient Health Questionnaire-9 Score 9 03/04/2025 Comments Unknown Sex and Gender Information Value Date Recorded Sex Assigned at Not on file Legal Sex Female 8:23 PM EDT Gender Identity Not on file Sexual Orientation Not on file Occupation Industry Job Start Date Job End Date \ Not on file Not on file Not on file documented as of this encounter Last Filed Vital Signs Vital Sign Reading Time Taken Comments Blood Pressure 128/76 03/10/2025 6:07 AM EDT Pulse 73 03/10/2025 6:07 AM EDT Temperature 36.6 C (97.8 F) 03/10/2025 6:07 AM EDT Respiratory Rate 18 03/08/2025 4:12 PM EDT Oxygen Saturation 98% 03/10/2025 6:07 AM EDT Inhaled Oxygen Concentration - - Weight 108 kg (238 lb 1.6 oz) 03/09/2025 5:00 AM EDT Height 157.5 cm (5' 2 ) 03/05/2025 6:46 PM EDT Body Mass Index 43.55 03/05/2025 6:46 PM EDT documented in this encounter Functional Status * Over the past 2 weeks, how often have you been bothered by any of the following problems? Question Answer Date of Assessment Author Patient Health Questionnaire -2 Score 2 03/04/2025 7:48 PM EDT Stan Bedoya RN * Calculated C-SSRS Risk Score (Lifetime/Recent) Answer Date of Assessment Author No Risk Indicated 03/04/2025 7:48 PM EDT Renetta Flood RN * If you checked off any problems on this questionnaire, Question Answer Date of Assessment Author How difficult have these problems made it for you to do your work, take care of things at home, or get along with other people? Somewhat difficult 03/04/2025 7:48 PM EDT Stan Bedoya RN * Over the past 2 weeks, how often have you been bothered by any of the following problems? Question Answer Date of Assessment Author Little interest or pleasure in doing things Several days 03/04/2025 7:48 PM EDT Renetta Bedoya RN Feeling down, depressed, or hopeless Several days 03/04/2025 7:48 PM EDT Renetta Bedoya RN Trouble falling or staying asleep, or sleeping too much Nearly every day 03/04/2025 7:48 PM EDT Renetta Bedoya RN Feeling tired or having little energy Several days 03/04/2025 7:48 PM EDT Renetta Bedoya RN Poor appetite or overeating Several days 03/04/2025 7:48 PM EDT Renetta Bedoya RN Feeling bad about yourself - or that you are a failure or have let yourself or your family down Not at all 03/04/2025 7:48 PM EDT Renetta Bedoya RN Trouble concentrating on things, such as reading the newspaper or watching television Several days 03/04/2025 7:48 PM CHELSIT Renetta Bedoya RN Moving or speaking so slowly that other people could have noticed? Or the opposite - being so fidgety or restless that you have been moving around a lot more than usual. Several days 03/04/2025 7:48 PM EDT Renetta Bedoya RN Thoughts that you would be better off or hurting yourself in some way Not at all 03/04/2025 7:48 PM CHELSIT Renetta Bedoya RN Patient Health Questionnaire-9 Score 9 03/04/2025 7:48 PM EDT Renetta Bedoya RN * Question Answer Date of Assessment Author 1. Wish to be (Past 1 Month) No 03/04/2025 7:48 PM EDT Stan Bedoya RN 2. Non-Specific Active Suici olimpia Thoughts (Past 1 Month) No 03/04/2025 7:48 PM EDT Reina Bedoya RN 6. Suicidal Behavior (Lifetime) No 7:48 PM EDT Renetta Bedoya RN documented as of this encounter Medications at Time of Discharge acetaminophen (Tylenol) 325 MG tabletIndications: Pain Take 2 tablets by mouth. 06/30/2024 busPIRone (Buspar) 10 MG tabletIndications: Anxiety Disorder Take 1 tablet by mouth 3 times a day. clonazePAM (KlonoPIN) 0.5 MG tabletIndications: Agitation Take 1 tablet by mouth 3 times a day as needed (agitation). lithium 300 MG capsuleIndications :IDD with behavioral disturbances Take 2 capsules by mouth nightly. 03/10/2025 OLANZapine (ZyPREXA) 20 MG tabletIndications: Schizophrenia,Schi zophrenia Take 0.5 tablets by mouth 2 times a day. 30 tablet 03/11/2025 QUEtiapine (SEROquel) 25 MG tablet TAKE 1 TO 2 TABLETS BY MOUTH ONCE DAILY 02/09/2025 escitalopram (Lexapro) 10 MG tabletIndications: Major Depressive Disorder Take 1 tablet by mouth daily. 30 tablet 1 03/11/2025 documented as of this encounter Miscellaneous Notes * Group Note - Kaitlin Tavarez - 03/10/2025 2:29 PM EDT Group Topic: Music Therapy Group Date: 03/10/2025 Start Time: 0 End Time: 1410 Facilitators: Kaitlin Tavarez Department: [facility] Integrative Medicine Virtual Dept. Number of Participants: 6 Treatment Modality: Group Music Therapy Interventions Utilized: breathing techniques, music listening, music-assisted relaxation, playing instruments/drumming, singing, Goals Addressed: Reduce anxiety, and Increase autonomy and control, coping skills, self-regulation, Name: Kiesha Montelongo Date of : 1990 MR: [id number] Patient Attendance: Yes, Level of Participation: Active Quality of Participation: pleasant, sharing, Interactions with others: attentive, conversational, interactive, Mood/Affect: affect brightened across session, Triggers (if applicable): Behavioral Responses: communication behaviors, musical participation, positive non-verbal behaviors, problem solving skills, Musical Responses: instrument play, mouthing lyrics, Pt Verbalized: action plan, agreed with positive statements/action plan, positive statements, statements regarding emotions, Comments: Pt shared current stressors and how she prefers to keep herself active/busy with work andextracurricular learning. Pt expressed enjoyment of imagery exercise and made positive comments about other pts who helped her during a panic last night. Plan: pt will be encouraged to attend groups, * Group Note - Felicitas Nunez - 03/10/2025 1:02 PM EDT Group Topic: Leisure Skills Group Date: 03/10/2025 Start Time: 1100 End Time: 1230 Facilitators: Felicitas Nunez Department: [facility] Inpatient Psychiatry Number of Participants: 4 Group Focus: coping skills, healthy friendships, and leisure skills Treatment Modality: Leisure Development Interventions utilized were leisure development Purpose: enhance coping skills Name: Kiesha Montelongo Date of : 1990 MR: [id number] Level of Participation: active Quality of Participation: cooperative, engaged, and initiates communication Interactions with others: gave feedback Mood/Affect: appropriate Triggers (if applicable): Cognition: coherent/clear Progress: Moderate Response: Engaged with RN students throughout. Pleasant and conversational. Childlike - frequently asking questions. 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 lithium Belwood Does this test have other names? Belwood levels, serum lithium levels, lithium blood test What is this test? This test measures and checks the amount of lithium in your blood. Belwood is a medicine used to treat psychiatric illnesses, such as bipolar disorders, acute cristhian, and other mood disorders. This test is used to find out the right dose for you if you're just starting lithium treatment. The test is also used to make sure you continue to get the right amount for aslong as you take this medicine. If you take too much lithium, it can cause more side effects. If you take too little, the medicine might not help your condition. Why do I need this test? You may need this test once or twice a week when you first start taking lithium to help your doctorfigure out the best dose for you. You may also have this test after you've been taking lithium for a while to see whether your dose needs to be changed. You may have this test again 5 to 7 days after your dosage is changed. You may also have this test if you have symptoms, such as tremor, nausea, vomiting, or diarrhea. This will let your doctor know if your symptoms are because your lithium level is too high or if you have other conditions that need to be treated. What other tests might I have along with this test? Your doctor may also order tests that check how well your kidneys and other organs are working. This is because lithium is excreted through your kidneys. It is not metabolized. These tests may include: ? Urinalysis. ? Blood urea nitrogen (BUN). ? Creatinine. ? Calcium. ? Complete blood count. ? Thyroid function. ? Electrocardiogram. Your doctor may also order a test because you shouldn't take lithium during the first 3 months of . Your doctor may also order other tests while you're taking lithium, to watch how your kidneys and thyroid are working. These may include: ? BUN. ? Creatinine. ? Urinalysis. ? Thyroid function. What do my test results mean? Test results may vary depending on your age, gender, health history, and other things. Your test results may be different depending on the lab used. They may not mean you have a problem. Ask your doctor what your test results mean for you. Results are given in milliequivalents per liter (mEq/L). For lithium to be effective, your level should be between 0.6 and 1.2 mEq/L, but not more than 1.2 mEq/L. Belwood has a very narrow range where it is effective and nontoxic. At a level of 1.2 mEq/L, lithium can start to cause problems. If your levels are too high, you could get lithium poisoning and need treatment right away. Too much lithium can be fatal. If your levels are too low, the medicine may not help your condition. Keep adiary of your lithium levels and the blood-level range that provides you with the best protection and fewest side effects. Bring this information with you to your appointments. This information can help your doctor adjust your dose. Levels that are higher or lower may also mean you have problems with your heart or kidneys. How is this test done? The test is done with a blood sample. A needle is used to draw blood from a vein in your arm or hand. Does this test pose any risks? Having a blood test with a needle carries some risks. These include bleeding, infection, bruising, and feeling lightheaded. When the needle pricks your arm or hand, you may feel a slight sting or pain. Afterward, the site may be sore. What might affect my test results? Timing is important. Having the test 8 to 12 hours after your last dose of lithium gives the best results. Certain medicines can affect your results. These include: ? Antibiotics. ? Arthritis medicines. ? Phenytoin, for epilepsy. ? Water pills (diuretics). ? Nonsteroidal anti-inflammatory drugs (NSAIDs), except aspirin. ? Cardiovascular medicines. These include angiotensin converting enzyme (AMADO) inhibitors and calcium channel blockers. Being dehydrated, such as losing lots of fluid with sweating or not drinking enough fluids, or a diet too high or low in salt can also affect your results. How do I get ready for this test? You don't need to prepare for this test but note the time you took your last dose of lithium. Be sure your doctor knows about all medicines, herbs, vitamins, and supplements you are taking. This includes medicines that don't need a prescription and any illegal drugs you may use. Last Reviewed Date: 2024 00:00:00 ?? [id number] [employer]. All rights reserved. This information is not intended as a substitute for professional medical care. Always follow your healthcare professional's instructions. * [facility] - Ajit Royal RN - 03/10/2025 12:43 PM EDT Images from the original note were not included. [id number] Escitalopram IMPORTANT WARNING: A small number of children, teenagers, and young adults (up to 24 years of age) who took antidepressants ('mood elevators') such as escitalopram during clinical studies became suicidal (thinking about harming or killing oneself or planning or trying to do so). Children, teenagers, and young adults who take antidepressants to treat depression or other mental illnesses may be more likely to become suicidal than children, teenagers, and young adults who do not take antidepressants to treat these conditions. However, experts are not sure about how great this risk is and how much it should be considered in deciding whether a child or teenager should take an antidepressant. Children younger than 12 years of age should not normally take escitalopram, but in some cases, a doctor may decide that escitalopram is the best medication to treat a child's condition. You should know that your mental health may change in unexpected ways when you take escitalopram orother antidepressants even if you are an adult over 24 years of age. You may become suicidal, especially at the beginning of your treatment and any time that your dose is increased or decreased. You,your family, or your caregiver should call your doctor right away if you experience any of the follo wing symptoms: new or worsening depression; thinking about harming or killing yourself, or planningor trying to do so; extreme worry; agitation; panic attacks; difficulty falling asleep or staying asleep; aggressive behavior; irritability; acting without thinking; severe restlessness; and frenziedabnormal excitement. Be sure that your family or caregiver knows which symptoms may be serious so they can call the doctor if you are unable to seek treatment on your own. Your healthcare provider will want to see you often while you are taking escitalopram, especially at the beginning of your treatment. Be sure to keep all appointments for office visits with your doctor. The doctor or pharmacist will give you the addiction social worker's patient information sheet (Medication Guide) when you begin treatment with escitalopram. Read the information carefully and ask your doctor or pharmacist if you have any questions. You also can obtain the Medication Guide from the FDA website: https://www.fda.gov/Drugs/DrugSafety/dkh801886.htm. No matter your age, before you take an antidepressant, you, your parent, or your caregiver should talk to your doctor about the risks and benefits of treating your condition with an antidepressant orwith other treatments. You should also talk about the risks and benefits of not treating your condition. You should know that having depression or another mental illness greatly increases the risk that you will become suicidal. Tell your doctor if you or anyone in your family has or has ever had bipolar disorder (mood that changes from depressed to abnormally excited) or cristhian (frenzied, abnormally excited mood) or has thought about or attempted suicide. Talk to your doctor about your condition, symptoms, and personal and family medical history. You and your doctor will decide what type of treatment is right for you. WHY is this medicine prescribed? Escitalopram is used to treat depression in adults and children and teenagers 12 years of age or older. Escitalopram is also used to treat generalized anxiety disorder (LAUREN; excessive worry and tension that disrupts daily life and lasts for 6 months or longer) in adults, teenagers, and children 7 years of age and older. Escitalopram is in a class of antidepressants called selective serotonin reuptake inhibitors (SSRIs). It works by increasing the amount of serotonin, a natural substance in the brain that helps maintain mental balance. HOW should this medicine be used? Escitalopram comes as a tablet and a solution (liquid) to take by mouth. It is usually taken once aday with or without food. To help you remember to take escitalopram, take it at around the same time every day, in the morning or in the evening. Follow the directions on your prescription label carefully, and ask your doctor or pharmacist to explain any part you do not understand. Take escitalopram exactly as directed. Do not take more or less of it or take it more often than prescribed by your doctor. Your doctor may start you on a low dose of escitalopram and increase your dose after 1 week in adults and after 2 or 3 weeks in teenagers and children 7 years of age and older. It may take 1 to 4 weeks or longer before you feel the full benefit of escitalopram. Continue to take escitalopram even if you feel well. Do not stop taking escitalopram without talking to your doctor. Your doctor will probably decrease your dose gradually. If you suddenly stop taking escitalopram,you may experience withdrawal symptoms such as mood changes, irritability, agitation, nausea, dizziness, burning, numbness, or tingling in the hands or feet, anxiety, confusion, headache, sweating, shaking, frenzied or abnormally excited mood, tiredness, and difficulty falling asleep or staying asleep. Tell your doctor if you experience any of these symptoms while you are decreasing your dose of e scitalopram or soon after you stop taking escitalopram. Are there OTHER USES for this medicine? This medication may be prescribed for other uses; ask your doctor or pharmacist for more information. What SPECIAL PRECAUTIONS should I follow? Before taking escitalopram, ? tell your doctor or pharmacist if you are allergic to escitalopram, citalopram (Celexa), any other medications, or any of the ingredients in the tablets or solution. Ask your pharmacist or check the Medication Guide for a list of the ingredients. ? tell your doctor or pharmacist if you are taking the following medications or have stopped takingthem within the past two weeks: a monoamine oxidase (MAO) inhibitor such as isocarboxazid (Marplan), linezolid (Zyvox), methylene blue, phenelzine (Nardil), selegiline (Emsam, Zelapar), and tranylcypromine (Parnate). ? you should know that escitalopram is very similar to another SSRI, citalopram (Celexa). You should not take these two medications together. ? Some medications should not be taken with escitalopram. Other medications may cause dosing changes or extra monitoring when taken with escitalopram. Make sure you have discussed any medications youare currently taking or plan to take before starting escitalopram with your doctor and pharmacist. Before starting, stopping, or changing any medications while taking escitalopram, please get the advice of your doctor or pharmacist. ? The following nonprescription or herbal products may interact with escitalopram: aspirin, ibuprofen (Advil, Motrin IB), naproxen (Aleve), [place]'s wort, or tryptophan. Be sure to let your doctor and pharmacist know that you are taking these medications before you start taking escitalopram. Do not start any of these medications while taking escitalopram without discussing with your healthcare provider. ? tell your doctor if you have a low level of sodium in your blood, if you drink or have ever drunklarge amounts of alcohol, or use or have ever used street drugs or have ever overused prescription medications. Also tell your doctor if you have recently had a heart attack and if you have or have ever had bleeding problems; seizures; glaucoma (a condition in which increased pressure in the eye can lead to gradual loss of vision); or liver, kidney, or heart disease. ? tell your doctor if you are , especially if you are in the last few months of your , or if you plan to become or are breast- feeding. If you become while taking escitalopram, call your doctor. Escitalopram may cause problems in newborns following delivery if it is taken during the last months of . ? if you are having surgery, including dental surgery, tell the doctor or dentist that you are taking escitalopram. ? you should know that escitalopram may make you drowsy and may affect your judgment, thinking, andmovements. Do not drive a car or operate machinery until you know how this medication affects you. ? remember that alcohol can add to the drowsiness caused by this medication. ? you should know that escitalopram may cause angle-closure glaucoma (a condition where the fluid is suddenly blocked and unable to flow out of the eye causing a quick, severe increase in eye pressure which may lead to a loss of vision). Talk to your doctor about having an eye examination before you start taking this medication. If you have nausea, eye pain, changes in vision, such as seeing colored rings around lights, and swelling or redness in or around the eye, call your doctor or get emergency medical treatment right away. What SPECIAL DIETARY instructions should I follow? Unless your doctor tells you otherwise, continue your normal diet. What should I do IF I FORGET to take a dose? Take the missed dose as soon as you remember it. However, if it is almost time for the next dose, skip the missed dose and continue your regular dosing schedule. Do not take a double dose to make up for a missed one. What SIDE EFFECTS can this medicine cause? Some side effects can be serious. If you experience either of the following symptoms or those listed in the IMPORTANT WARNING or SPECIAL PRECAUTIONS sections, call your doctor immediately: ? unusual excitement ? seeing things or hearing voices that do not exist (hallucinating) ? rash ? hives or blisters ? itching ? fever ? joint pain ? difficulty breathing or swallowing ? swelling of the face, throat, tongue, lips, or eyes ? fever, sweating, confusion, fast or irregular heartbeat, severe muscle stiffness or twitching, agitation, hallucinations, loss of coordination, nausea, vomiting, or diarrhea ? abnormal bleeding or bruising ? nose bleeding ? headache ? unsteadiness ? problems with thinking, concentration, or memory ? seizures ? difficult or painful urination Escitalopram may decrease appetite and cause weight loss and height in children. Your child's doctor will watch his or her growth carefully. Talk to your child's doctor if you have concerns about your child's growth or weight while he or she is taking this medication. Talk to your child's doctor about the risks of giving escitalopram to your child. Escitalopram may cause other side effects. Call your doctor if you have any unusual problems while taking this medication. If you experience a serious side effect, you or your doctor may send a report to the Food and Drug Administration's (FDA) MedWatch Adverse Event Reporting program online (https://www.fda.gov/Safety/MedWatch) or by phone ( ). What should I know about STORAGE and DISPOSAL of this medication? Keep this medication in the container it came in, tightly closed, and out of reach of children. Store it at room temperature and away from excess heat and moisture (not in the bathroom). Dispose of unneeded medications in a way so that pets, children, and other people cannot take them.Do not flush this medication down the toilet. Use a medicine take-back program. Talk to your pharmacist about take-back programs in your community. Visit the FDA's Safe Disposal of Medicines website h ttps://goo.gl/c4Rm4p for more information. Keep all medication out of sight and reach of children as many containers are not child-resistant. Always lock safety caps. Place the medication in a safe location - one that is up and away and out of their sight and reach. https://www.upandaway.org What should I do in case of OVERDOSE? In case of overdose, call the poison control helpline at . Information is also available online at https://www.poisonhelp.org/help. If the victim has collapsed, had a seizure, has trouble breathing, or can't be awakened, immediately call emergency services at 911. Symptoms of overdose may include: ? dizziness ? nausea ? vomiting ? drowsiness ? fast or pounding heartbeat ? seizures ? coma (loss of consciousness for a period of time) What OTHER INFORMATION should I know? Keep all appointments with your doctor. Before having any laboratory test (especially those that involve methylene blue), tell your doctor and the laboratory personnel that you are taking escitalopram. Do not let anyone else take your medication. Ask your pharmacist any questions you have about refilling your prescription. Keep a written list of all of the prescription and nonprescription (yxdh-bgi-eewclog) medicines, vitamins, minerals, and dietary supplements you are taking. Bring this list with you each time you visit a doctor or if you are admitted to the hospital. You should carry the list with you in case of mickie rgencies. Brand Name(s): ? Lexapro?? also available generically This report on medications is for your information only, and is not considered individual patient advice. Because of the changing nature of drug information, please consult your physician or pharmacist about specific clinical use. The [place] [employer] represents that the information provided hereunder was formulated with a reasonable standard of care, and in conformity with professional standards in the field. The [place] [employer] makes no representations or warranties, express or implied, including, but not limited to, any implied warranty of merchantability and/or fitness for a particular purpose, with respect to such information and specifically disclaims all such warranties. Users are advised that decisions regarding drug therapy are complex medical decisions requiring the independent, informed decision of an appropriate health small animal caretaker, and the information is provided for informational purposes only. The entire monograph for a drug should be reviewed for a thorough understanding of the drug's actions, uses and side effects. The [place] does not endorse or recommend the use of any drug.The information is not a substitute for medical care. AHFS?? Patient Medication Information?. ?? Copyright, 2023. The [employer]??, [address], [address], [place], [place]. All Rights Reserved. Duplication for commercial use must be authorized by [facility]. Selected Revisions: December 30, 2022. AHFS?? Patient Medication Information?. ?? Copyright, 2024 * [facility] Ajit [facility] - 03/10/2025 12:43 PM EDT Images from the original note were not included. [id number] Buspirone WHY is this medicine prescribed? Buspirone is used to treat anxiety disorders or in the short-term treatment of symptoms of anxiety.Buspirone is in a class of medications called anxiolytics. It works by changing the amounts of certain natural substances in the brain. HOW should this medicine be used? Buspirone comes as a tablet to take by mouth. It usually is taken twice daily and must be taken consistently, either always with food or always without food each time. Follow the directions on your prescription label carefully, and ask your doctor or pharmacist to explain any part you do not understand. Take buspirone exactly as directed. Do not take more or less of it or take it more often than prescribed by your doctor. Your doctor may start you on a low dose of buspirone and gradually increase your dose, not more often than once every 2 to 3 days. It may take several weeks before you reach a dose that works for you. Are there OTHER USES for this medicine? This medication is sometimes prescribed for other uses; ask your doctor or pharmacist for more information. What SPECIAL PRECAUTIONS should I follow? Before taking buspirone, ? tell your doctor and pharmacist if you are allergic to buspirone, any other medications, or any of the ingredients in buspirone tablets. Ask your pharmacist for a list of the ingredients. ? tell your doctor or pharmacist if you are taking the following medications or have stopped takingthem within the past two weeks: monoamine oxidase (MAO) inhibitor such as isocarboxazid (Marplan), linezolid (Zyvox), methylene blue, phenelzine (Nardil), selegiline (Eldepryl, Emsam, Zelapar), and tranylcypromine (Parnate. ? tell your doctor if you have or have ever had kidney or liver disease or a history of alcohol or drug abuse. ? some medications should not be taken with buspirone. Other medications may cause dosing changes or extra monitoring when taken with buspirone. Make sure you have discussed any medications you are currently taking or plan to take before starting buspirone with your doctor and pharmacist. Before starting, stopping, or changing any medications while taking buspirone, please get the advice of your doctor or pharmacist. ? the following nonprescription product may interact with buspirone: cimetidine (Tagamet). Be sure to let your doctor and pharmacist know that you are taking this medication before you start taking buspirone. Do not start this medication while taking buspirone without discussing with your healthcare provider. ? tell your doctor if you are , plan to become , or are breast- feeding. If you become while taking buspirone, call your doctor. ? if you are having surgery, including dental surgery, tell the doctor or dentist that you are taking buspirone. ? you should know that this drug may make you drowsy. Do not drive a car or operate machinery untilyou know how this drug affects you. ? remember that alcohol can add to the drowsiness caused by this drug. Do not drink alcohol while taking buspirone. What SPECIAL DIETARY instructions should I follow? Avoid drinking large amounts of grapefruit juice while taking buspirone. What should I do IF I FORGET to take a dose? Take the missed dose as soon as you remember it. However, if it is almost time for the next dose, skip the missed dose and continue your regular dosing schedule. Do not take a double dose to make up for a missed one. What SIDE EFFECTS can this medicine cause? Some side effects can be serious. If you experience any of these symptoms, call your doctor immediately: ? rash ? hives ? itching ? swelling of the face, eyes, mouth, throat, tongue, or lips ? fast or irregular heartbeat ? blurred vision ? uncontrollable shaking of a part of the body ? agitation, fever, sweating, dizziness, flushing, confusion, fast or irregular heartbeat, shivering, severe muscle stiffness or twitching, seizures, hallucinations, loss of coordination, nausea, vomiting, or diarrhea If you experience a serious side effect, you or your doctor may send a report to the Food and Drug Administration's (FDA) MedWatch Adverse Event Reporting program online (https://www.fda.gov/Safety/MedWatch) or by phone ( ). What should I know about STORAGE and DISPOSAL of this medication? Keep this medication in the container it came in, tightly closed, and out of reach of children. Store it at room temperature, away from light, excess heat, and moisture (not in the bathroom). Keep all medication out of sight and reach of children as many containers are not child-resistant. Always lock safety caps. Place the medication in a safe location - one that is up and away and out of their sight and reach. https://www.LiveRail.org Dispose of unneeded medications in a way so that pets, children, and other people cannot take them.Do not flush this medication down the toilet. Use a medicine take-back program. Talk to your pharmacist about take-back programs in your community. Visit the FDA's Safe Disposal of Medicines website h ttps://goo.gl/c4Rm4p for more information. What should I do in case of OVERDOSE? In case of overdose, call the poison control helpline at . Information is also available online at https://www.poisonhelp.org/help. If the victim has collapsed, had a seizure, has trouble breathing, or can't be awakened, immediately call emergency services at 110. Symptoms of overdose may include: ? nausea ? vomiting ? dizziness ? drowsiness ? blurred vision ? upset stomach What OTHER INFORMATION should I know? Keep all appointments with your doctor and the laboratory. Your doctor will order certain lab teststo check your response to buspirone. Before having any laboratory test, tell your doctor and the laboratory personnel that you are taking buspirone. Do not let anyone else take your medication. Ask your pharmacist any questions you have about refilling your prescription. Keep a written list of all of the prescription and nonprescription (hell-azm-qldqjvr) medicines, vitamins, minerals, and dietary supplements you are taking. Bring this list with you each time you visit a doctor or if you are admitted to the hospital. You should carry the list with you in case of mickie rgencies. Brand Name(s): ? BuSpar? also available generically ?? This branded product is no longer on the market. Generic alternatives may be available. This report on medications is for your information only, and is not considered individual patient advice. Because of the changing nature of drug information, please consult your physician or pharmacist about specific clinical use. The [place] [employer] represents that the information provided hereunder was formulated with a reasonable standard of care, and in conformity with professional standards in the field. The [place] makes no representations or warranties, express or implied, including, but not limited to, any implied warranty of merchantability and/or fitness for a particular purpose, with respect to such information and specifically disclaims all such warranties. Users are advised that decisions regarding drug therapy are complex medical decisions requiring the independent, informed decision of an appropriate health small animal caretaker, and the information is provided for informational purposes only. The entire monograph for a drug should be reviewed for a thorough understanding of the drug's actions, uses and side effects. The [employer] does not endorse or recommend the use of any drug.The information is not a substitute for medical care. AHFS?? Patient Medication Information?. ?? Copyright, 2023. The [employer]??, [address], [address], [place], [place]. All Rights Reserved. Duplication for commercial use must be authorized by [facility]. Selected Revisions: September 30, 2018. AHFS?? Patient Medication Information?. ?? Copyright, 2024 * [facility] Ajit [facility] - 03/10/2025 12:43 PM EDT Images from the original note were not included. [id number] Warning Signs of Suicide and What To Do If you think a person may be suicidal, ask them. Say, Have you thought about suicide? Asking won't make it more likely that they will try to do it. In fact, many people with suicidal thoughts say they are relieved when the question is asked. If they say yes, they may already have a plan. They may know how and when they will attempt it. Find out as much as you can. A plan that is detailed and easy to carry out means the person is in danger right now. Know the warning signs The warning signs for suicide include: ? Threats or talk of suicide ? Talking about and dying ? Change in eating habits ? Change in sleeping habits, such as not sleeping or sleeping all of the time ? Feeling hopeless ? Suddenly buying a gun or other weapon ? Saying things such as Soon, I won't be a problem or Nothing matters ? Giving away things they own ? Making out a will or planning their ? Suddenly being happy or calm after being depressed Who?s at risk? Some things put a person at a higher risk of attempting suicide. They include: ? A history of suicide in their family ? Past suicide attempts ? Alcohol and drug use, along with impulsive behaviors ? Having a mood disorder, such as depression or bipolar disorder ? History of trauma or abuse including bullying ? Major loss, such as a divorce or of a loved one ? Money problems ? Legal problems ? Having access to a lethal weapon (such as a gun in the home) ? Long-term (chronic) physical illness, including chronic pain ? Being around others with suicidal behavior Getting help Don't try to handle this alone. Get the person to a trained healthcare provider. Suicidal thoughts may be a sign of depression. This is a serious but treatable illness. Call a mental health clinic or a licensed mental healthcare provider in your area right away. This may be a: ? Psychiatrist ? Clinical psychologist ? Psychiatric or licensed clinical hospice social worker ? Marriage and family counselor ? Clergy person When to call for crisis help If the person is at immediate risk, call or text the 988 Suicide & Crisis Lifeline at 988. Tellthe crisis counselor you need help for a person who is thinking about suicide. Or take the person to the nearest emergency room. Don't leave the person alone. Anyone who is at immediate risk of suicide needs care right away. Theperson must be constantly watched. They must never be left alone. Crisis help resources These services are free and available 08/01: ? 988 Suicide & Crisis Lifeline. Call or text 988. Lifeline can also be reached at 131-613-4226(351-968-UXDH). An online chat choice is also available. Lifeline is free and available 08/01. ? ? National [place] on Mental Illness (HELEN) at www.helen.org. Call 970-385-8595. Or text HELEN to 328512. ? Mental Health Page at www.mhanational.org. Call 988. Or text MHA to 143988. ? Veterans Crisis Line at www.veteranscrisisline.net. Call 988 then press 1. Or text a message to 326387. Last Reviewed Date: 2024 00:00:00 ?? [id number] [employer]. All rights reserved. This information is not intended as a substitute for professional medical care. Always follow your healthcare professional's instructions. * [facility] - Ajit Royal RN - 03/10/2025 12:43 PM EDT Images from the original note were not included. [id number] Recognizing Suicide Warning Signs in Yourself People who are thinking about suicide may not know they are depressed. Certain thoughts, feelings, and actions can be signals that let you know you may need help. The best thing you can do is watch for signs that you may be at risk. Then, ask for help. You can talk with your regular health care provider or get help from a mental health provider. Depression Depression is a treatable illness, just like diabetes or heart disease. And like those illnesses, depression is not something that you can just snap out of. To feel better, treatment is needed before depression gets to a point that it can endanger your life. To know if depression is causing you to feel like ending your life, ask yourself: ? Do I feel worthless, guilty, helpless, or hopeless? ? Have I been feeling sad, down, or blue on most days? ? Have I lost interest in my work or people I used to enjoy? ? Do I have trouble sleeping or do I sleep too much? ? Do I eat more or less than normal? ? Do I feel tired, weak, and low on energy? ? Do I feel restless and unable to sit still? ? Do I have trouble thinking or making choices? ? Do I cry more than normal? ? Do I feel life isn't worth living? Warning signs for suicide Contact your health care provider or get help right away if you have any of the warning signs below. You can also call a mental health clinic or the Suicide and Crisis Lifeline for help and support. Warning signs for suicide include: ? Thinking often about taking your life. ? Planning how you may attempt it. ? Talking or writing about suicide. ? Feeling that is the only solution to your problems. ? Feeling a pressing need to make out your will or arrange your . ? Giving away things you own. ? Taking part in risky behaviors, such as having sex with someone you don't know, or drinking and driving. ? Buying a lethal weapon, such as a gun, or hoarding medicines that could be used in an overdose. In a crisis, call or text 988 If you are in immediate risk of harming yourself or others, call 988. When you call or text 988, you will be connected to trained crisis counselors at the Suicide and Crisis Lifeline. An online chat is also available. Lifeline is free and available 08/01. To learn more For more information about depression and suicide prevention: ? Suicide and Crisis Lifeline at [employer]elt or call 982 or 0-039-160-YMCG (249-387-6208) ? National [place] on Mental Illness at www.helen.org or 587-260-1623 ? Mental Health Page at www.nmha.org or 050-793-6760 ? National [place] of Mental Health at www.nimh.nih.gov or 264-643-9495 Last Reviewed Date: 2024 00:00:00 ?? [employer]. All rights reserved. This information is not intended as a substitute for professional medical care. Always follow your healthcare professional's instructions. * Group Note - Tamara Morgan - 03/10/2025 11:17 AM EDT Group Topic: Goals Group Date: 03/10/2025 Start Time: 1010 End Time: 1040 Facilitators: Taamra Morgan Department: [facility] Inpatient Psychiatry Number of Participants: 14 Group Focus: Goals Treatment Modality: Discussion Interventions utilized were: N/A Purpose: Goal setting Name: Kiesha Montelongo Date of : 1990 MR: [id number] Level of Participation: Good Quality of Participation: Good Interactions with others: Appropriate Mood/Affect: Appropriate Triggers (if applicable): N/A Cognition: N/A Progress N/A Response: N/A Plan: Continue facilitating group Patients Problems: 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) Behavioral problem Intellectual disability Psychosis, unspecified psychosis type (CMS/HCC) * Care Plan - Ajit Royal RN - 03/10/2025 10:37 AM EDT Problem: Adult Behavioral Health Plan of Care Goal: Plan of Care Review 03/10/2025 1037 by Ajit Royal RN Outcome: Met 03/10/2025 1021 by Ajit Royal RN Outcome: Ongoing, Progressing Flowsheets Taken 03/10/2025 1021 by Ajit Royal RN Progress: improving Taken 03/09/20252026 by Sarah No RN Patient Agreement with Plan of Care: agrees Plan of Care Reviewed With: patient Goal: Patient-Specific Goal (Individualization) 03/10/2025 1037 by Ajit Royal RN Outcome: Met 03/10/2025 1021 by Ajit Royal RN Outcome: Ongoing, Progressing Flowsheets Taken 03/10/2025 1019 by Ajit Royal RN Patient/Family-Specific Goals (Include Timeframe): pt will take a shower this morning and make a phone call to family Individualized Care Needs: empathetic listening Anxieties, Fears or Concerns: expressed concern about panic attack that she had overnight Taken 03/09/20252026 by Sarah No RN Patient Personal Strengths: expressive of needs Patient Vulnerabilities: lacks insight into illness Goal: Adheres to Safety Considerations for Self and Others 03/10/2025 1037 by Ajit Royal RN Outcome: Met 03/10/2025 1021 by Ajit Royal RN Outcome: Ongoing, Progressing Intervention: Develop and Maintain Individualized Safety Plan Flowsheets (Taken 03/09/20252026 by Sarah No RN) Safety Measures: monitored by video Goal: Optimized Coping Skills in Response to Life Stressors 03/10/2025 1037 by Ajit Royal RN Outcome: Met 03/10/2025 1021 by Ajit Royal RN Outcome: Ongoing, Progressing Intervention: Promote Effective Coping Strategies Flowsheets (Taken 03/10/2025 1021) Supportive Measures: mindfulness techniques promoted Problem: Psychotic Signs/Symptoms Goal: Improved Behavioral Control (Psychotic Signs/Symptoms) 03/10/2025 1037 by Ajit Royal RN Outcome: Met 03/10/2025 1021 by Ajit Royal RN Outcome: Ongoing, Progressing Intervention: Manage Behavior Flowsheets (Taken 03/09/20252026 by Sarah No RN) De-Escalation Techniques: medication administered Goal: Optimal Cognitive Function (Psychotic Signs/Symptoms) 03/10/2025 1037 by Ajit Royal RN Outcome: Met 03/10/2025 1021 by Ajit Royal RN Outcome: Ongoing, Progressing Intervention: Support and Promote Cognitive Ability Flowsheets Taken 03/10/2025 1021 by Ajit Royal RN Reorientation Measures: familiar social contact encouraged Taken 03/09/20252026 by Sarah No RN Communication Support Strategies: active listening utilized Goal: Improved Mood Symptoms 03/10/2025 1037 by Ajit Royal RN Outcome: Met 03/10/2025 1021 by Ajit Royal RN Outcome: Ongoing, Progressing Intervention: Optimize Emotion and Mood Flowsheets (Taken 03/10/2025 1021) Supportive Measures: mindfulness techniques promoted * Nursing Note - Ajit Royal RN - 03/10/2025 10:24 AM EDT Pt continues admission on adult behavioral health unit. Pt out and about on the unit today- interactive and cooperative with staff. Pt attended and participated in groups. Hygiene, hydration, and nutrition encouraged. Pt presents with anxious mood (5/10), PRN vistaril given. Pt also expressed concerns about a panic attack that she had overnight. Pt states that the voices in her head tell her to have anxiety attacks. Pt endorses a very little bit of SI, denies HI, and endorses a little bit of AH of voices telling her to have anxiety at this time. No signs of physical distress noted. Pt alert and oriented x4. Thought content appears grossly organized. Vital signs stable. Pt continues to comply with medication regimen, and will continue to be medicated per EMAR. PRN vistaril provided- effective. Encouragement provided and will continue to monitor for safety, encourage patient to voice safety concerns, and implement current plan of care. * Care Plan - Ajit Royal RN - 03/10/2025 10:23 AM EDT Problem: Adult Behavioral Health Plan of Care Goal: Plan of Care Review Outcome: Ongoing, Progressing Flowsheets Taken 03/10/2025 1021 by Ajit Royal RN Progress: improving Taken 03/09/20252026 by Sarah No RN Patient Agreement with Plan of Care: agrees Plan of Care Reviewed With: patient Goal: Patient-Specific Goal (Individualization) Outcome: Ongoing, Progressing Flowsheets Taken 03/10/2025 1019 by Ajit Royal RN Patient/Family-Specific Goals (Include Timeframe): pt will take a shower this morning and make a phone call to family Individualized Care Needs: empathetic listening Anxieties, Fears or Concerns: expressed concern about panic attack that she had overnight Taken 03/09/20252026 by Sarah No RN Patient Personal Strengths: expressive of needs Patient Vulnerabilities: lacks insight into illness Goal: Adheres to Safety Considerations for Self and Others Outcome: Ongoing, Progressing Intervention: Develop and Maintain Individualized Safety Plan Flowsheets (Taken 03/09/20252026 by Sarah No RN) Safety Measures: monitored by video Goal: Optimized Coping Skills in Response to Life Stressors Outcome: Ongoing, Progressing Intervention: Promote Effective Coping Strategies Flowsheets (Taken 03/10/2025 1021) Supportive Measures: mindfulness techniques promoted Problem: Psychotic Signs/Symptoms Goal: Improved Behavioral Control (Psychotic Signs/Symptoms) Outcome: Ongoing, Progressing Intervention: Manage Behavior Flowsheets (Taken 03/09/20252026 by Sarah No RN) De-Escalation Techniques: medication administered Goal: Optimal Cognitive Function (Psychotic Signs/Symptoms) Outcome: Ongoing, Progressing Intervention: Support and Promote Cognitive Ability Flowsheets Taken 03/10/2025 1021 by Ajit Royal RN Reorientation Measures: familiar social contact encouraged Taken 03/09/20252026 by Sarah No RN Communication Support Strategies: active listening utilized Goal: Improved Mood Symptoms Outcome: Ongoing, Progressing Intervention: Optimize Emotion and Mood Flowsheets (Taken 03/10/2025 1021) Supportive Measures: mindfulness techniques promoted * Discharge Instr - Appointments - Ajit Royal RN - 03/10/2025 9:58 AM EDT Kiesha has an appointment scheduled with Tracy Mishra APRN at [facility] on March 16. Kiesha' father has the appointment details saved but was not able to provide the time right off hand. March 16 [facility] [address] [place] [address] * Discharge Summary - Cabrera Eubanks MD - 03/10/2025 7:23 AM EDT Images from the original note were not included. [facility] Unit Discharge Summary Admit Date/Time: 03/04/2025 8:34 PM Admitting Attending: Hafsa Lorenzo Discharge Date: 03/10/25 Length of Stay: 5 Days Discharge Attending Physician: Hafsa Lorenzo DO PCP name and Address: Chirag Rea MD [address] [place], [place] [id number] Referring provider name and address: No referring provider defined for this encounter. Chief Concern and Brief History of Present Illness Per EmPATH: Kiesha Montelongo is a 34 y.o. female presenting via PD due to a behavioral disturbance. Patient was throwing furniture at her parent's house. PMHx of Schizoaffective Disorder, LAUREN, Intellectual Disability and hx of TBI. Patient is an unreliable historian. She stated that she is here because of her cat that passed 4yrsprior. She has been having a hard time since the cat's birthday is next month. She also mentioned [facility] that she [facility] occasionally during the day. She has gotten upset at one person since theyare their own person. PD provided a letter from [facility] that stated she has had worsening aggressive behaviors to include throwing furniture, throwing and shattering a glass vase, and hitting her mother. She indicates that she hears voices and they tell her to do bad things. On initial evaluation: Behaviors have been worsening for the past 6 months, she was hospitalized once in November of 2024. While patient does have a history of behavioral issues since her TBI as a child,these behaviors have gotten worse. She has started displaying increased aggressive behavior including chocking her cat, and pretending to harm parents. She has had multiple medication changes within the past couple of months, but was previously well managed with Vraylar. On interview with Kiesha this morning she states she is doing good. She is laying in bed. Says that she was able to sleep pretty well last night with no major concerns. Says that she has been hearing voices and seeing things since being in the hospital. She is unable to endorse who the voices are,but states that they want her to hurt herself and run away she says that she does not think that she will do these things. When asked what she is seeing currently, she just says that she see's dots. Encouraged her to reach out to staff if she gets scared or feels unsafe. Interview Day of Discharge Today, she said she feels fine and was able to sleep pretty well. She says the voices were telling her to have a panic attack last night, so she did, but she was able to use some coping skills to calm down (thinking of her old cat). She denies SI/HI, and says the thoughts are telling her to leave. She feels that she will be able to use coping skills to calm down when she goes home and is excited to see her family. For further details on history of present illness, please see H&P Hospital Course and Condition on Discharge Prior to U admission, patient was initially evaluated by [facility] physician/ROSIO who determined further inpatient psychiatric management was needed. On initial U evaluation, patient demonstrated child-like behaviors consistent with IDD, endorsed sad mood, endorsed AH - voices telling her to hurt herself and run away - and visual hallucinations - seeing dots. She denied feelings of SI or HI. Initial workup (vitals, physical exam, labs) revealed metabolic labs grossly within normal limits, UDS Negative, and no other notable findings on initial work up.. Following medication reconciliation by pharmacy, patient's home medication regimen was found to include Buspar 10 mg, Klonopin 0.5 mg BID PRN, Pristiq 25 mg daily, Belwood 300 mg BID, Zyprexa 10 mg nightly, Topiramate 25 mg nightly, Lexapro 10 mg Daily, Lamictal 100 mg BID. Possibly Seroquel 200 mg Over the course of U admission, the following medication changes were made: lithium 600 mg nightly, increase olanzapine 10 mg BID, coninue escitalopram 10 mg daily, continue buspirone 10 mg TID, discontinue desvenlafaxine, discontinue topiramate, discontinue lamictal. Patient tolerated treatment well without notable side effects, EPS. Patient demonstrated improvement in symptom burden, and by day of discharge, patient demonstrated improved mood and willingness to engage in treatment planning and plan for further outpatient engagement. Over hospital course, patient was calm, cooperative, and demonstrated no aggression or acting out behaviors. Hospital course was not complicated. Prognosis is guarded and dependant upon following up with care recommendations. Patient and her safety relation, mother and father, agree to safety planning, including: attending outpatient follow-up. A problem-based plan addressing psychiatric and medical co-morbidities as well as reasoning in formulation is available below. Risk Assessment: Patient IS NOT currently at an acutely elevated risk of harm to self or others given lack of SI/HI.Patient IS NOT demonstrating ANY suicidal intent, DOES appear to be able to control impulsivity, and IS NOT exhibiting any psychiatric symptom burden impacting safety/daily functioning. It should be noted that this patient is at a chronically elevated risk at baseline due to the following exhibited risk factors NOT modifiable by hospitalization demonstrated in their history: historyof psychiatric disorder, never //, unemployed or unskilled, chronic medical/ physical illness, and impulsivity. The patient does, however, exhibit the following strengths/protective factors: adherent to current medications, connected with an outpatient provider, denying access to firearms, and able to identify reasons for living, setting/pursuing goals, exercising self direction, access to housing, financial stability, and good interpersonal relationships and supports. Norisk factors modifiable by psychiatric hospitalization were identified on evaluation. Involuntary hospitalization on a 72 hour hold for safety, further psychiatric evaluation, and crisis stabilization IS NOT currently indicated. Patient IS NOT holdable [place] as she DOES NOT meet ALL hold criteria: having a mental illness, being an acute risk of harm to self or others, reasonable expectation of benefit from admission, AND inpatient being least restrictive means of treatment. Formulation: Kiesha Montelongo is a 34 y.o. 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 They were subsequently admitted to [facility] 03/05/25 on 72 hour hold for continued evaluation and management of behavioral disturbances. Psychiatric history is significant for IDD and reported Schizoaffective disorder with multiple medication changes within the past few months. No new recent psychosocial stressors according to parents. Most likely diagnosis at this time is intellectual disability with behavioral disturbances, and psychosis unspecified. While it can be difficult to diagnose a thought disorder in a patient with IDD, thepatient's consistent reports of command auditory hallucinations, reports of RTIS from mother, and bizarre behaviors that were absent prior to 3.5 years ago in the absence of drug use suggests that this patient may have some underlying disorder in addition to her IDD. Difficult to exclude schizophrenia, schizoaffective disorder, or bipolar disorder vs an exacerbation of her IDD with behavioral issues. Discharge Diagnosis Psychosis, unspecified psychosis type (CMS/HCC) Diagnoses: PSYCHIATRIC MANAGEMENT 1.) Intellectual Disability with Behavior Disturbance CGI Status: Compared to admission, how much has the pt's condition changed? 3 (minimally improved) PLAN: Continue Escitalopram 10 mg daily Continue Buspirone 10 mg TID Follow up with outpatient provider about behavior disturbances Continue coping skills work Discontinue klonopin prn, pristiq, topiramate 2.) Psychosis, unspecified CGI Status: Compared to admission, how much has the pt's condition changed? 3 (minimally improved) PLAN: Continue Zyprexa 10 mg BID Continue Belwood 600 mg nightly Follow up with PCP for consideration of metformin, A1C and fasting lipid levels Discontinue lamictal 100 mg BID Surgeries and Procedures none Additional Hospital Problem List: Active Hospital Problems *Psychosis, unspecified psychosis type (CMS/HCC) Medications at Discharge Olanzapine 10 mg BID Belwood 600 mg nightly Buspar 10 mg TID Lexipro 10 mg Daily Follow-Up / Post-Discharge Instructions Follow up Recommendations: 1.) She was discharged to Home with family. 2.) She should follow up with psychiatry and/or other specialists as per below. 3.) She should also followup with their Primary Care Physician for routine health maintenance. 4.) She was strongly encouraged to keep all future appointments and advised to take all prescribed medications as instructed. 5.) She should abstain from all mood-altering substances except those prescribed by a licensed plumber. Her primary supports should monitor her for evidence of substance use and should alert her outpatient provider if use is suspected or confirmed. 6.) A safety plan was given at the time of discharge which included instructions to return to the nearest ER if patient becomes suicidal, homicidal, manic, psychotic, or develops any other urgent/emergent symptoms, or to call the [phone] line. 7.) She voiced an understanding of the safety plan. Outpatient Follow-Up Lisa Mishra [facility] Appt on March 16 at 9:00 am Pertinent Mental Status Exam At Time of Discharge Appearance: appears stated age, well nourished, wearing age appropriate clothing, disheveled, and poor hygiene Behavior: calm, cooperative, regressed behaviors, and non-verbal body language and communication appropriate throughout interview Eye Contact: appropriate Involuntary Movements: absent Psychomotor Activity: no significant depression or agitation Speech: normal rate, tone and rhythm, appropriate vitor, and coherent speech Mood: fine Affect: euthymic, congruent with stated mood, broad, full range of affect, and friendly LOC/Orientation: Awake and Alert, oriented to person, place, time, and general circumstances Cognition/Development/Knowledge: Cognition appears grossly normal, appropriate fund of knowledge for age and level of education and Has history of intellectual disability and delay, estimated cognitive function is moderately impaired Thought Process: organized and tangential Thought Content/Perceptions (AVH): does not appear to be reacting to internal stimuli and no overt delusions Suicidal Ideation: passive Homicidal Ideation: denied Reliability: patient appears to be an unreliable informant secondary to intellectual disability or inability to comprehend situation Insight: chronically impaired Judgment: chronically impaired Discharge Disposition/Condition Disposition: Home with family Condition: Stable (s/sx potential problems absent or manageable) greater than 30 minutes was spent on evaluation and management of this patient Li Lopez, MS3 I saw and evaluated the medical student. I discussed the case with the medical student and agree with the findings and plan as documented. Cabrera Eubanks MD Internal Medicine and Psychiatry PGY-1 Cosigned by Hafsa Lorenzo DO at 03/11/2025 7:56 AM EDT Associated attestation - Hafsa Lorenzo DO - 03/11/2025 7:56 AM EDT I saw and evaluated the patient. I discussed the case with the medical student and resident/fellow and agree with the findings and plan as documented. I personally participated in the management of the patient. * Nursing Note - Sarah No RN - 03/10/2025 1:46 AM EDT Pt denies SI/HI/AVH at this time. She hope to discharge in the morning. Encouragement provided and will continue to monitor for safety, encourage patient to voice safety concerns, and implement current plan of care. * Group Note - Trevor Martínez - 03/09/2025 8:50 PM EDT Group Topic: Spirituality Group Group Date: 03/09/2025 Start Time: 1800 End Time: 1834 Facilitators: Trevor Martínez Department: Pastoral Care Number of Participants: 5 Group Focus: check in, feeling awareness/expression, forgiveness, self- awareness, and self-esteem Treatment Modality: Spiritual Interventions utilized were exploration, story telling, and support Purpose: explore maladaptive thinking, express feelings, express irrational fears, regain self-worth, and reinforce self-care Name: Kiesha Montelongo Date of : 1990 MR: [id number] Level of Participation: active Quality of Participation: Sharing, Attentive, engaged, initiates communication, and offered feedback Interactions with others: gave feedback Mood/Affect: appropriate Cognition: coherent/clear, logical, pressured speech, and congregation preoccupation Patients Problems: 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) Behavioral problem Intellectual disability Psychosis, unspecified psychosis type (CMS/HCC) * Care Plan - Sarah No RN - 03/09/2025 8:29 PM EDT Problem: Adult Behavioral Health Plan of Care Goal: Plan of Care Review Outcome: Ongoing, Progressing Flowsheets (Taken 03/09/20252026) Progress: improving Patient Agreement with Plan of Care: agrees Plan of Care Reviewed With: patient Goal: Patient-Specific Goal (Individualization) Outcome: Ongoing, Progressing Flowsheets (Taken 03/09/20252026) Patient Personal Strengths: expressive of needs Patient Vulnerabilities: lacks insight into illness Patient/Family-Specific Goals (Include Timeframe): pt will sleep 4-6 hours this shift Individualized Care Needs: safety rounds Anxieties, Fears or Concerns: anxious about gettibg to discharge tomorrow Goal: Adheres to Safety Considerations for Self and Others Outcome: Ongoing, Progressing Flowsheets (Taken 03/09/20252026) Adheres to Safety Considerations for Self and Others: making progress toward outcome Intervention: Develop and Maintain Individualized Safety Plan Flowsheets (Taken 03/09/20252026) Safety Measures: monitored by video Goal: Optimized Coping Skills in Response to Life Stressors Outcome: Ongoing, Progressing Flowsheets (Taken 03/09/20252026) Optimized Coping Skills in Response to Life Stressors: making progress toward outcome Intervention: Promote Effective Coping Strategies Flowsheets (Taken 03/09/20252026) Supportive Measures: active listening utilized Problem: Psychotic Signs/Symptoms Goal: Improved Behavioral Control (Psychotic Signs/Symptoms) Outcome: Ongoing, Progressing Flowsheets (Taken 03/09/20252026) Mutually Determined Action Steps (Improved Behavioral Control): identifies future-oriented goal Intervention: Manage Behavior Flowsheets (Taken 03/09/20252026) De-Escalation Techniques: medication administered Goal: Optimal Cognitive Function (Psychotic Signs/Symptoms) Outcome: Ongoing, Progressing Flowsheets (Taken 03/09/20252026) Mutually Determined Action Steps (Optimal Cognitive Function): participates in problem resolution Intervention: Support and Promote Cognitive Ability Flowsheets (Taken 03/09/20252026) Reorientation Measures: clock in view Communication Support Strategies: active listening utilized Goal: Improved Mood Symptoms Outcome: Ongoing, Progressing Flowsheets (Taken 03/09/20252026) Mutually Determined Action Steps (Improved Mood Symptoms): acknowledges progress Intervention: Optimize Emotion and Mood Flowsheets (Taken 03/09/20252026) Supportive Measures: active listening utilized * Nursing Note - Ajit Royal RN - 03/09/2025 3:29 PM EDT Pt continues admission on adult behavioral health unit. Pt out and about on the unit today- interactive and cooperative with staff. Pt attended and participated in groups. Pt appears disheveled and malodorous. Hygiene, hydration, and nutrition encouraged. Pt was provided shower supplies, and she did get cleaned up this morning. Pt presents with sad mood and full affect. Pt said she is feeling a lot of sadness . Pt endorses SI a little bit , HI a little bit , and AVH of hearing voices and seeing dots. No signs of physicaldistress noted. Pt alert and oriented x4. Thought content appears grossly organized. Vital signs stable. Pt continues to comply with medication regimen, and will continue to be medicated per EMAR. Encouragement provided and will continue to monitor for safety, encourage patient to voice safety concerns, and implement current plan of care. * Care Plan - Ajit Royal RN - 03/09/2025 3:18 PM EDT Problem: Adult Behavioral Health Plan of Care Goal: Plan of Care Review Outcome: Ongoing, Progressing Flowsheets (Taken 03/09/2025 0349 by Lisa oMrales, RN) Progress: improving Patient Agreement with Plan of Care: agrees Plan of Care Reviewed With: patient Goal: Patient-Specific Goal (Individualization) Outcome: Ongoing, Progressing Flowsheets Taken 03/09/2025 1514 by Ajit Royal, RN Patient/Family-Specific Goals (Include Timeframe): Pt will take a shower and brush teeth this morning Individualized Care Needs: encourage hygiene Anxieties, Fears or Concerns: concerned about feeling a lot of sadness Taken 03/09/2025348 by Lisa Morales RN Patient Personal Strengths: medication/treatment adherence interests/hobbies no history of violence Patient Vulnerabilities: limited social skills lacks insight into illness Goal: Adheres to Safety Considerations for Self and Others Outcome: Ongoing, Progressing Intervention: Develop and Maintain Individualized Safety Plan Flowsheets (Taken 03/09/2025348 by Lisa Morales, RN) Safety Measures: self-directed behavior promoted suicide assessment completed Goal: Optimized Coping Skills in Response to Life Stressors Outcome: Ongoing, Progressing Intervention: Promote Effective Coping Strategies Flowsheets (Taken 03/09/2025348 by Lisa Morales, RN) Supportive Measures: self-responsibility promoted relaxation techniques promoted self-care encouraged Problem: Psychotic Signs/Symptoms Goal: Improved Behavioral Control (Psychotic Signs/Symptoms) Outcome: Ongoing, Progressing Intervention: Manage Behavior Flowsheets (Taken 03/09/2025348 by Lisa Morales RN) De-Escalation Techniques: appropriate behavior reinforced Goal: Optimal Cognitive Function (Psychotic Signs/Symptoms) Outcome: Ongoing, Progressing Intervention: Support and Promote Cognitive Ability Flowsheets (Taken 03/09/2025348 by Lisa Morales RN) Reorientation Measures: clock in view Communication Support Strategies: simple statements used nonverbal strategies used one-step directions provided Goal: Improved Mood Symptoms Outcome: Ongoing, Progressing Intervention: Optimize Emotion and Mood Flowsheets (Taken 03/09/2025348 by Lisa Morales RN) Supportive Measures: self-responsibility promoted relaxation techniques promoted self-care encouraged * Progress Notes - Javier Herbert MT - 03/09/2025 1:45 PM EDT Massage Therapy Note Visit Type IM Visit Type: New patient Patient States: Neck and Back [id number] 15 Minutes Session Information Setting: Inpatient ([facility] Recreation Room) IM Order: Yes Consult Requested By: Other Therapist ([facility] Recreational Therapist) Reason for IM Consult: Patient Request Contact Location: Group treatment room Type of Contact: Initial visit Missed Opportunity: No Contact Length/ Time: 15 min Patient Presented: Other (Comment) (Massage Chair) Musculoskeletal Areas Addressed: Neck and back Pressure Level: MD 2 Clinical Massage Therapy Applications Used: Holds, Iranian, and Circular Effleurage Intake Questions Reason Support Requested : Comfort Care Status Upon Arrival Self Report Observations Follow Up Last Date of IM Therapy: 03/09/25 Next Date For IM Follow-up: 03/09/25 Integrative Medicine Comment: Thank you for the opportunity to work with this patient Javier Herbert MT * Group Note - Felicitas Nunez - 03/09/2025 1:30 PM EDT Group Topic: Leisure Skills Group Date: 03/09/2025 Start Time: 1330 End Time: 1530 Facilitators: Felicitas Nunez Department: [facility] Inpatient Psychiatry Number of Participants: 3 Group Focus: coping skills and leisure skills Treatment Modality: Leisure Development Interventions utilized were leisure development Purpose: enhance coping skills, express feelings, and reinforce self-care Name: Kiesha Montelongo Date of : 1990 MR: [id number] Level of Participation: active Quality of Participation: cooperative, engaged, and initiates communication Interactions with others: gave feedback Mood/Affect: appropriate and bright Triggers (if applicable): Cognition: rigid Progress: Moderate Response: Engaged in board game with staff. Eager to return home to day program and job at [employer]. Plan: patient will be encouraged to attend all groups Patients Problems: 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) Behavioral problem Intellectual disability Psychosis, unspecified psychosis type (CMS/HCC) * Group Note - Felicitas Nunez - 03/09/2025 12:11 PM EDT Group Topic: Leisure Skills Group Date: 03/09/2025 Start Time: 1100 End Time: 1200 Facilitators: Felicitas Nunez Department: [facility] Inpatient Psychiatry Number of Participants: 3 Group Focus: coping skills, healthy friendships, and leisure skills Treatment Modality: Leisure Development Interventions utilized were leisure development Purpose: enhance coping skills Name: Kiesha Montelongo Date of : 1990 MR: [id number] Level of Participation: active Quality of Participation: cooperative, engaged, and initiates communication Interactions with others: gave feedback Mood/Affect: irritable Triggers (if applicable): Cognition: coherent/clear and processing slowly Progress: Moderate Response: [facility] Childlike and conversational about cats and her day program back home. Plan: patient will be encouraged to attend all groups Patients Problems: 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) Behavioral problem Intellectual disability Psychosis, unspecified psychosis type (CMS/HCC) * Group Note - Tamara Morgan - 03/09/2025 10:53 AM EDT Group Topic: Goals Group Date: 03/09/2025 Start Time: 1015 End Time: 1050 Facilitators: Tamara Morgan Department: [facility] Inpatient Psychiatry Number of Participants: 12 Group Focus: Goals Treatment Modality: Discussion Interventions utilized were: N/A Purpose: Goal setting Name: Kiesha Montelongo Date of : 1990 MR: [id number] Level of Participation: Good Quality of Participation: Good Interactions with others: Appropriate Mood/Affect: Appropriate Triggers (if applicable): N/A Cognition: N/A Progress N/A Response: N/A Plan: Continue facilitating group Patients Problems: 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) Behavioral problem Intellectual disability Psychosis, unspecified psychosis type (CMS/HCC) * Progress Notes - Cabrera Eubanks MD - 03/09/2025 7:21 AM EDT Images from the original note were not included. [facility] Unit Daily Progress Note 03/09/25 Hospital Day #4 Subjective: Per nursing and whiteboard discussion: Nursing reports that in the last 24 hours, patient Kiesha Tucker, was calm, cooperative, and required no PRN medications for acting out behaviors. Still endorsed AVH - hearing people and seeing dots. Endorsed just a little bit of SI. Per Resident/Rounds Interview: Kiesha Montelongo states that overnight they slept well without nighttime awakenings. This morning, they feel just okay. She learned about her uncle's passing yesterday when her parents and environmental research scientist visited her, which has made her feel sad. Counseled her on practicing positive coping skills when feeling negative emotions. Reports just a little bit of SI, but passive with no plan. She endorsed AH, hearing voices telling her to walk out of the U. She denied VH. She reports diarrhea due to medications, that seems to be improving. Additional Collateral: No, see H&P ROS: (2-9) Patient denies any problems with pain, N&V, dizziness, or muscle stiffness PFSH: (1) Past Medical History: This was reviewed from the H&P and is unchanged Family Medical History: This was reviewed from the H&P and is unchanged Social History: This was reviewed from the H&P and is unchanged Past Surgical History: This was reviewed from the H&P and is unchanged Objective: Temp: [36.5 ??C (97.7 ??F)-36.7 ??C (98.1 ??F)] 36.5 ??C (97.7 ??F) Heart Rate: [92-107] 107 Resp: [18] 18 BP: (107-158)/(66-72) 107/66 Sleep: Sleep Total Hours of Sleep: 9 (sleep 5-) Meals: I&O: I/O last 3 completed shifts: In: 1380 (12.8 mL/kg) [P.O.:1380] Out: - (0 mL/kg) Weight: 108 kg No intake/output data recorded. EXAMINATION: (12 elements/ 2 systems) Neuro: Gait and station are intact. The muscle tone is intact and all the patient moves all extremities. Mental Status Exam: Appearance: appears stated age, wearing hospital attire, disheveled, good hygiene, and poor hygiene Behavior: calm, cooperative, and regressed behaviors, interested in treatment Eye Contact: appropriate Involuntary Movements: absent Psychomotor Activity: no significant depression or agitation Speech: normal rate, tone and rhythm, appropriate vitor, and coherent speech Mood: just okay Affect: euthymic, congruent with stated mood, and friendly LOC/Orientation: Awake and Alert, oriented to person, place, time, and general circumstances Cognition/Development/Knowledge: Appears cognitively impaired due to 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 Hb ?? Plt ?? Hct ?? ANC ?? INR ??, PTT ??, Anti-Xa ?? BMP Na ?? Cl ?? BUN ?? Glu ?? K ?? Co2 ?? Cr ?? Ca ?? iCa ?? Mg ??, Phos ?? Lactate ?? LFT AST ?? AlkPhos ?? T Prot ?? ALK ?? Bili ?? Alb ?? D.Bili ?? Encounter Date: 03/04/25 ECG Adult Result Value EKG DIAGNOSIS CLASS Borderline Abnormal Ventricular Rate 67 Atrial Rate 67 MD Interval 116 QRSD Interval 68 QT Interval 408 QTC Interval 431 P [place] 46 R [place] 5 T Wave [place] -7 Diagnosis Normal sinus rhythm Diagnosis Minimal voltage criteria for LVH, may be normal variant ( R in aVL ) Diagnosis Borderline ECG Diagnosis Diagnosis Confirmed by Sahil Priest ([id number]) on 03/06/2025 9:29:03 PM *Note: Due to a large number of results and/or encounters for the requested time period, some results have not been displayed. A complete set of results can be found in Results Review. ANTIPSYCHOTIC MONITORING TOOL Current antipsychotic(s): Olanzapine Glucose parameters: Lab Results Component Value Date HGBA1C 5.8 (H) 03/07/2025 Lab Results Component Value Date GLUCOSE 119 (H) 03/04/2025 GLUCOSE 89 08/04/2024 Concern for diabetes? Yes Lipid parameters: Lab Results Component Value Date CHOL 202 (H) 03/07/2025 HDL 38 (L) 03/07/2025 LDLCALC 120 (H) 03/07/2025 TRIG 249 (H) 03/07/2025 Fasting lipid panel? No Current antidiabetic: N/A Current antilipemic: N/A Blood pressure parameters: BP REVIEW BP (ultimate) 03/09/2025 6:02 AM 107/66 03/08/2025 4:12 PM 158/72 03/08/2025 6:25 AM 117/79 03/07/2025 4:38 PM 137/88 Concern for hypertension? No Weight parameters: Height: 157.5 cm (5' 2 ) Height Method: Stated Weight: 108 kg (238 lb 1.6 oz) Weight Method: Standing scale BMI (Calculated): 43.54 Current antihypertensive: N/A QTc: 431 EKG Date/Time: 03/06/25 Patient is not between the ages of 40-75y, LDL <70, and/or without diagnosis of diabetes, therefore 10-year ASCVD risk was not calculated. The ASCVD Risk score (Noel SEN, et al., 2019) failed to calculate for the following reasons: The 2019 ASCVD risk score is only valid for ages 40 to 79 Patient does not require statin therapy at this time. Clinical indication for treatment of metabolic concerns pertaining to ongoing antipsychotic use wasdeferred to primary treatment team for further discussion. Assessment/Plan ASSESSMENT/PLAN Risk Assessment: Patient is currently at an acutely elevated risk of harm to self or others given concern for psychosis. Patient is demonstrating PASSIVE suicidal intent, DOES NOT appear to be able to control impulsivity, and IS exhibiting psychotic symptom burden. They currently affirm lack of specific suicide plan. This plan was noted to be NON-SPECIFIC (passive), of LIMITED (passive) lethality, and consistent with LIMITED access to means based on evaluation. It should be noted that this patient is at a chronically elevated risk at baseline due to the following exhibited risk factors NOT modifiable by hospitalization demonstrated in their history: historyof psychiatric disorder, never //, unemployed or unskilled, chronic medical/ physical illness, and impulsivity. The patient does, however, exhibit the following strengths/protective factors: adherent to current medications, connected with an outpatient provider, denying access to firearms, and able to identify reasons for living, setting/pursuing goals, exercising self direction, access to housing, financial stability, and good interpersonal relationships and supports. Risk factors modifiable by psychiatric hospitalization include acute exacerbation of a suspected psychiatric condition requiring treatment and are recommended to be addressed by initiating treatment forsigns/symptoms of suspected psychiatric condition as appropriate. Involuntary hospitalization on a 72 hour hold for safety, further psychiatric evaluation, and crisis stabilization is currently indicated. Patient is holdable under KRS A as she does meet ALL holdcriteria: having a mental illness, being an acute risk of harm to self or others, reasonable expectation of benefit from admission, AND inpatient being least restrictive means of treatment. Formulation: Kiesha Montelongo is a 34 y.o. 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 They were subsequently admitted to [facility] 03/05/25 on 72 hour hold for continued evaluation and management of behavioral disturbances. Psychiatric history is significant for IDD and reported Schizoaffective disorder with multiple medication changes within the past few months. No new recent psychosocial stressors according to parents. Most likely diagnosis at this time is intellectual disability with behavioral disturbances, and psychosis unspecified. While it can be difficult to diagnose a thought disorder in a patient with IDD, thepatient's consistent reports of command auditory hallucinations, reports of RTIS from mother, and bizarre behaviors that were absent prior to 3.5 years ago in the absence of drug use suggests that thi s patient may have some underlying disorder in addition to her IDD. Difficult to exclude schizophrenia, schizoaffective disorder, or bipolar disorder vs an exacerbation of her IDD with behavioral issues. Admit status: [facility] Hold start date/time 03/06/25, hold end date/time 03/10/25. Diagnoses: PSYCHIATRIC MANAGEMENT 1.) Intellectual Disability with Behavior Disturbance CGI Status: Compared to admission, how much has the pt's condition changed? 3 (minimally improved) PLAN: Admission to [facility] for further inpatient psychiatric management Behavioral checks q15 minutes per unit protocol Acute Agitation Medications: Zyprexa 5 mg q6h PRN PO/IM Notify physician if medications for agitation required Comfort medications PRN Encourage participation in groups and benefit from therapeutic milieu Daily meetings and supportive therapy from treatment team Continue Escitalopram 10 mg daily Continue Buspirone 10 mg TID Discontinued Klonopin PRN Discontinued Pristique Discontinued Topiramate 2.) Psychosis unspecified CGI Status: Compared to admission, how much has the pt's condition changed? 4 (no change) PLAN: Continue Zyprexa to 10 mg BID Continue [place] 600 mg nightly Discontinue lamictal 100 mg BID Consider fasting lipid levels in morning Follow up with PCP for consideration of metformin, A1c and fasting lipid levels. Disposition: Continued admission Barriers to discharge: medication management, SI, HI Li Valenzuela Dahliabrtitanie, MS3 I saw and evaluated the patient with the medical student. I discussed the case with the medical student and agree with the findings and plan as documented. Cabrera Eubanks MD Internal Medicine and Psychiatry PGY-1 [1] busPIRone, 10 mg, Oral, TID escitalopram, 10 mg, Oral, Daily lithium, 600 mg, Oral, Nightly OLANZapine, 10 mg, Oral, Nightly OLANZapine zydis, 10 mg, Sublingual, Daily [2] PRN medications: acetaminophen, aluminum & magnesium hydroxide-simethicone, benzocaine, calcium carbonate, hydrOXYzine pamoate, magnesium hydroxide, melatonin, ocular lubricant, OLANZapine zydis OR OLANZapine, sodium chloride Cosigned by Hafsa Lorenzo DO at 03/10/2025 8:01 AM EDT Associated attestation - Hafsa Lorenzo DO - 03/10/2025 8:01 AM EDT I saw and evaluated the patient. I discussed the case with the medical student and resident/fellow and agree with the findings and plan as documented. I personally participated in the management of the patient. * Nursing Note - Lisa Morales RN - 03/09/2025 5:56 AM EDT 03/08 overnight stocker: Patient is calm, cooperative this evening. Patient reports ongoing auditory hallucinations of hearing people and visual hallucinations of seeing dots . Patient also reports having suicidal thoughts, describing this as, just a little bit . Patient is very child-like in mannerisms and behavior, as noted by this nurse and other healthcare professionals. Patient will repeat sentences or questions; at times, will stare at staff, possibly unsure of how to manage the social situation at hand. Patient slept through the entire night without concern. Fifteen minute checks and hourly rounds in place for patient safety purposes. * Care Plan - Lisa Morales RN - 03/09/2025 3:52 AM EDT Problem: Adult Behavioral Health Plan of Care Goal: Plan of Care Review Outcome: Ongoing, Progressing Flowsheets (Taken 03/09/2025348) Progress: improving Patient Agreement with Plan of Care: agrees Plan of Care Reviewed With: patient Goal: Patient-Specific Goal (Individualization) Outcome: Ongoing, Progressing Flowsheets Taken 03/09/2025348 Patient Personal Strengths: medication/treatment adherence interests/hobbies no history of violence Patient Vulnerabilities: limited social skills lacks insight into illness Taken 03/09/2025342 Patient/Family-Specific Goals (Include Timeframe): Patient will verbalize understanding of education by stating one potential side effect of one prescribed medication by the end of this shift. Individualized Care Needs: Provide education on medications and side effects educate patient to alert staff of any symptoms that might be related to medication side effects provide reassurance and therapeutic engagement Anxieties, Fears or Concerns: Concerned about medications potentially having a side effect of diarrhea Goal: Adheres to Safety Considerations for Self and Others Outcome: Ongoing, Progressing Flowsheets (Taken 03/09/2025348) Adheres to Safety Considerations for Self and Others: making progress toward outcome Intervention: Develop and Maintain Individualized Safety Plan Flowsheets (Taken 03/09/2025348) Safety Measures: self-directed behavior promoted suicide assessment completed Goal: Optimized Coping Skills in Response to Life Stressors Outcome: Ongoing, Progressing Flowsheets (Taken 03/09/2025348) Optimized Coping Skills in Response to Life Stressors: making progress toward outcome Intervention: Promote Effective Coping Strategies Flowsheets (Taken 03/09/2025348) Supportive Measures: self-responsibility promoted relaxation techniques promoted self-care encouraged Problem: Psychotic Signs/Symptoms Goal: Improved Behavioral Control (Psychotic Signs/Symptoms) Outcome: Ongoing, Progressing Flowsheets (Taken 03/09/2025348) Mutually Determined Action Steps (Improved Behavioral Control): identifies future-oriented goal Intervention: Manage Behavior Flowsheets (Taken 03/09/2025348) De-Escalation Techniques: appropriate behavior reinforced Goal: Optimal Cognitive Function (Psychotic Signs/Symptoms) Outcome: Ongoing, Progressing Flowsheets (Taken 03/09/2025348) Mutually Determined Action Steps (Optimal Cognitive Function): follows [id number] instructions Intervention: Support and Promote Cognitive Ability Flowsheets (Taken 03/09/2025348) Reorientation Measures: clock in view Communication Support Strategies: simple statements used nonverbal strategies used one-step directions provided Goal: Improved Mood Symptoms Outcome: Ongoing, Progressing Flowsheets (Taken 03/09/2025348) Mutually Determined Action Steps (Improved Mood Symptoms): identifies personal treatment goal Intervention: Optimize Emotion and Mood Flowsheets (Taken 03/09/2025348) Supportive Measures: self-responsibility promoted relaxation techniques promoted self-care encouraged * Treatment Plan - Lisa Morales RN - 03/09/2025 3:49 AM EDT Short-Term Goal: Patient will display improved capacity to cope with symptoms and maintain appropriate, safe behaviors. Intervention: Staff will work with treatment team to order appropriate level of supervision. Long-Term Goal: Patient will report a decrease in psychotic symptoms through the consistent use of psychotropic medications. Interventions: Staff will administer medications; staff will educate and monitor for medication side effects and compliance. * Care Plan - Lucina Cortes RN - 03/08/2025 2:13 PM EDT Problem: Adult Behavioral Health Plan of Care Goal: Plan of Care Review Outcome: Ongoing, Progressing Flowsheets (Taken 03/08/2025 1404) Progress: improving Patient Agreement with Plan of Care: agrees Plan of Care Reviewed With: patient Goal: Patient-Specific Goal (Individualization) Outcome: Ongoing, Progressing Flowsheets Taken 03/08/2025 1404 Patient Personal Strengths: expressive of emotions expressive of needs Patient Vulnerabilities: lacks insight into illness Taken 03/08/2025 1354 Patient/Family-Specific Goals (Include Timeframe): Patient will be medication compliant before the end of the shift Individualized Care Needs: Doctor approved for her to have her stuffed animals in her room Anxieties, Fears or Concerns: Concerned about her safety on the unit Goal: Adheres to Safety Considerations for Self and Others Outcome: Ongoing, Progressing Flowsheets (Taken 03/08/2025 1404) Adheres to Safety Considerations for Self and Others: making progress toward outcome Intervention: Develop and Maintain Individualized Safety Plan Flowsheets (Taken 03/08/2025 1404) Safety Measures: environmental rounds completed Goal: Optimized Coping Skills in Response to Life Stressors Outcome: Ongoing, Progressing Flowsheets (Taken 03/08/2025 1404) Optimized Coping Skills in Response to Life Stressors: making progress toward outcome Intervention: Promote Effective Coping Strategies Flowsheets (Taken 03/08/2025 1404) Supportive Measures: decision-making supported Problem: Psychotic Signs/Symptoms Goal: Improved Behavioral Control (Psychotic Signs/Symptoms) Outcome: Ongoing, Progressing Flowsheets (Taken 03/08/2025 1404) Mutually Determined Action Steps (Improved Behavioral Control): identifies symptoms triggers Intervention: Manage Behavior Flowsheets (Taken 03/08/2025 1404) De-Escalation Techniques: diversional activity encouraged Goal: Optimal Cognitive Function (Psychotic Signs/Symptoms) Outcome: Ongoing, Progressing Flowsheets (Taken 03/08/2025 1404) Mutually Determined Action Steps (Optimal Cognitive Function): follows [id number] instructions Intervention: Support and Promote Cognitive Ability Flowsheets (Taken 03/08/2025 1404) Reorientation Measures: clock in view Communication Support Strategies: active listening utilized Goal: Improved Mood Symptoms Outcome: Ongoing, Progressing Flowsheets (Taken 03/08/2025 1404) Mutually Determined Action Steps (Improved Mood Symptoms): acknowledges progress Intervention: Optimize Emotion and Mood Flowsheets (Taken 03/08/2025 1404) Supportive Measures: decision-making supported Diversional Activity: television * Group Note - Marquis Card - 03/08/2025 1:00 PM EDT Group Topic: Spirituality Group Group Date: 03/08/2025 Start Time: 1300 End Time: 1330 Facilitators: Marquis Card Department: [facility] Care Number of Participants: 3 Group Focus: affirmation, community group, and self-esteem Treatment Modality: Spiritual Interventions utilized were story telling and support Purpose: express feelings, increase insight, and regain self-worth Name: Kiesha Montelongo Date of : 1990 MR: [id number] Level of Participation: minimal Patient had to leave due to getting a visit. 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) Other general symptoms and signs Behavioral problem Intellectual disability Psychosis, unspecified psychosis type (CMS/HCC) * Group Note - Tamara Morgan - 03/08/2025 11:10 AM EDT Group Topic: Goals Group Date: 03/08/2025 Start Time: 1030 End Time: 1100 Facilitators: Tamara Morgan Department: [facility] Inpatient Psychiatry Number of Participants: 9 Group Focus: Goals Treatment Modality: Discussion Interventions utilized were: N/A Purpose: Goal setting Name: Kiesha Montelongo Date of : 1990 MR: [id number] Level of Participation: Good Quality of Participation: Good Interactions with others: Appropriate Mood/Affect: Appropriate Triggers (if applicable): N/A Cognition: N/A Progress N/A Response: N/A Plan: Continue facilitating group Patients Problems: 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 [facility] Behavioral Health Unit Daily Progress Note 03/08/25 Hospital Day #3 Subjective: Per nursing and whiteboard discussion: Nursing reports that in the last 24 hours, patient Kiesha Tucker, was calm, cooperative, and required no PRN medications for acting out behaviors Per Resident/Rounds Interview: Kiesha Montelongo states that overnight they slept well without nighttime awakenings. This morning, they feel well. They report No side effects due to medications. Reports that she has been having some Passive SI last night and this morning. Expressed that she feels she can tell someone on staff if she starts feeling this way again. She is agreeable to increasing her Zyprexa to 10 mg BID. Smiles at end of interview and endorses she will have a good day. Additional Collateral: No, see H&P ROS: (2-9) Patient denies any problems with pain, N&V, dizziness, or muscle stiffness PFSH: (1) Past Medical History: This was reviewed from the H&P and is unchanged Family Medical History: This was reviewed from the H&P and is unchanged Social History: This was reviewed from the H&P and is unchanged Past Surgical History: This was reviewed from the H&P and is unchanged Objective: .objectivebegin Temp: [36.4 ??C (97.6 ??F)-36.8 ??C (98.2 ??F)] 36.4 ??C (97.6 ??F) Heart Rate: [78-90] 83 Resp: [16] 16 BP: (117-137)/(79-89) 117/79 Sleep: Sleep Total Hours of Sleep: 8 (2129-) Meals: I&O: I/O last 3 completed shifts: In: 1620 (15.1 mL/kg) [P.O.:1620] Out: - (0 mL/kg) Weight: 107.5 kg No intake/output data recorded. EXAMINATION: (12 elements/ 2 systems) Neuro: Gait and station are intact. The muscle tone is intact and all the patient moves all extremities. Mental Status Exam: Appearance: appears stated age, wearing hospital attire, disheveled, poor hygiene Attitude: cooperative, interested in treatment Eye Contact: appropriate Speech: appropriate rate and volume, non-pressured Involuntary Movements: absent Psychomotor Activity: no significant depression or agitation Level of Consciousness: alert and attentive Memory: grossly intact Mood: good Affect: euthymic, constricted Thought Process: organized, tangential, improving Thought Content: no overt delusions, not responding to internal stimuli AVH: reports none currently, dots last night SI: passive last night and this morning HI: denies this morning Insight: chronically impaired Judgment: chronically impaired Medications: Scheduled: Current Scheduled Medications[1] As needed: Current PRN Medications[2] Labs in last 18 hours none Encounter Date: 03/04/25 ECG Adult Result Value EKG DIAGNOSIS CLASS Borderline Abnormal Ventricular Rate 67 Atrial Rate 67 MD Interval 116 QRSD Interval 68 QT Interval 408 QTC Interval 431 P [place] 46 R [place] 5 T Wave [place] -7 Diagnosis Normal sinus rhythm Diagnosis Minimal voltage criteria for LVH, may be normal variant ( R in aVL ) Diagnosis Borderline ECG Diagnosis Diagnosis Confirmed by Sahil Priest ([id number]) on 03/06/2025 9:29:03 PM *Note: Due to a large number of results and/or encounters for the requested time period, some results have not been displayed. A complete set of results can be found in Results Review. ANTIPSYCHOTIC MONITORING TOOL Current antipsychotic(s): Olanzapine Glucose parameters: Lab Results Component Value Date HGBA1C 5.8 (H) 03/07/2025 Lab Results Component Value Date GLUCOSE 119 (H) 03/04/2025 GLUCOSE 89 08/04/2024 Concern for diabetes? No Lipid parameters: Lab Results Component Value Date CHOL 202 (H) 03/07/2025 HDL 38 (L) 03/07/2025 LDLCALC 120 (H) 03/07/2025 TRIG 249 (H) 03/07/2025 Fasting lipid panel? NO Current antidiabetic: N/A Current antilipemic: none Blood pressure parameters: BP REVIEW BP (ultimate) 03/08/2025 6:25 AM 117/79 03/07/2025 4:38 PM 137/88 03/07/2025 10:30 AM 123/89 03/07/2025 6:16 AM 123/77 Concern for hypertension? No Weight parameters: Height: 157.5 cm (5' 2 ) Height Method: Stated Weight: 108 kg (237 lb) Weight Method: Standing scale BMI (Calculated): 43.34 Current antihypertensive: N/A QTc: 431 EKG Date/Time: 03/06/25 Patient is 34 years old The ASCVD Risk score (Noel SEN, et al., 2019) failed to calculate for the following reasons: The 2019 ASCVD risk score is only valid for ages 40 to 79 Patient does not require statin therapy at this time. Clinical indication for treatment of metabolic concerns pertaining to ongoing antipsychotic use wasdeferred to primary treatment team for further discussion. Assessment/Plan Risk Assessment: Suicide/self-harm risk re-assessment was completed on re-evaluation today and Patient is currently at an acutely elevated risk of harm to self or others given concern for psychosis. Patient is demonstrating PASSIVE suicidal intent, DOES NOT appear to be able to control impulsivity, and IS exhibiting psychotic symptom burden. They currently affirm lack of specific suicide plan. This plan was notedto be NON-SPECIFIC (passive), of LIMITED (passive) lethality, and consistent with LIMITED access tomeans based on evaluation. It should be noted that this patient is at a chronically elevated risk at baseline due to the following exhibited risk factors NOT modifiable by hospitalization demonstrated in their history: historyof psychiatric disorder, never //, unemployed or unskilled, and impulsivity. The patient does, however, exhibit the following strengths/protective factors: adherent to currentmedications, connected with an outpatient provider, denying access to firearms, and able to identify reasons for living, setting/pursuing goals, exercising self direction, access to housing, financial stability, and good interpersonal relationships and supports. Risk factors modifiable by psychiatric hospitalization include acute exacerbation of a suspected psychiatric condition requiring treatment and are recommended to be addressed by initiating treatment for signs/symptoms of suspected psychiatric condition as appropriate. Involuntary hospitalization on a 72 hour hold for safety, further psychiatric evaluation, and crisis stabilization is currently indicated. Patient is holdable [place] as she does meet ALL holdcriteria: having a mental illness, being an acute risk of harm to self or others, reasonable expectation of benefit from admission, AND inpatient being least restrictive means of treatment Formulation: Kiesha Montelongo is a 34 y.o. female with a PMHx of none and reported psychiatric hx of Intellectual Disability and recent diagnosis of Schizoaffective Disorder who presented to [facility] via police from home with concerns of aggressive behaviors and admitted 03/04/2025 to [facility] for continued management of Behavior Disturbances. They were subsequently admitted to [facility] 03/05/25 on 72 hour hold forcontinued evaluation and management of behavioral disturbances. Psychiatric history significant forIDD and reported Schizoaffective disorder with multiple medication changes within past few months. No new recent psychosocial stressors according parents. Most likely diagnosis at this time is Intellectual Disability with behavioral disturbances, and psychosis unspecified. While it can be difficultdo diagnose a thought disorder in a patient with IDD, the patients consistent reports of command auditory hallucinations, reports of RTIS from mother and bizarre behaviors that were absent prior to 3.5 years ago in the absence of drug use suggests that this patient may have some underlying disorder in addition to her IDD. Difficult to exclude Schizophrenia, Schizoaffective disorder or Bipolar Disorder, . Admit Status: Involuntary - 72hr hold signed by [facility] attending. Hold start date/time 03/06/25, hold end date/time 03/10/25 Diagnoses: PSYCHIATRIC MANAGEMENT 1.) Intellectual Disability with Behavior Disturbance CGI Status: Compared to admission, how much has the pt's condition changed? 4 (no change) PLAN: Admission to [facility] for further inpatient psychiatric management Behavioral checks q15 minutes per unit protocol Acute Agitation Medications: Zyprexa 5 mg q6h PRN PO/IM Notify physician if medications for agitation required Comfort medications PRN Encourage participation in groups and benefit from therapeutic milieu Daily meetings and supportive therapy from treatment team Continue Escitalopram 10 mg daily Continue Buspirone 10 mg TID Discontinued Klonopin PRN Discontinued Pristique Discontinued Topiramate 2.) Psychosis unspecified CGI Status: Compared to admission, how much has the pt's condition changed? 3 (minimally improved) PLAN: Increase Zyprexa to 10 mg BID Continue [place] 600 mg nightly Discontinue lamictal 100 mg BID Consider Metformin tomorrow Disposition: Continued admission Barriers to discharge: medication management, [facility] Cabrera Eubanks MD Internal Medicine and Psychiatry PGY-1 [1] busPIRone, 10 mg, Oral, TID escitalopram, 10 mg, Oral, Daily lithium, 600 mg, Oral, Nightly OLANZapine, 10 mg, Oral, Nightly OLANZapine zydis, 5 mg, Sublingual, Daily [2] PRN medications: acetaminophen, aluminum & magnesium hydroxide-simethicone, benzocaine, calcium carbonate, hydrOXYzine pamoate, magnesium hydroxide, melatonin, ocular lubricant, OLANZapine zydis OR OLANZapine, sodium chloride Cosigned by Hafsa Lorenzo DO at 03/09/2025 7:45 AM EDT Associated attestation - Hafsa Lorenzo DO - 03/09/2025 7:45 AM EDT I saw and evaluated the patient with the resident/fellow. I discussed the case with the resident/fellow and agree with the findings and plan as documented. * Nursing Note - Sarah No RN - 03/08/2025 12:12 AM EDT Pt endorses passive SI and seeing dots but denies HI/AH at this time. Pt continues to comply with medication regimen, and will continue to be medicated per EMAR. Encouragement provided and will continue to monitor for safety, encourage patient to voice safety concerns, and implement current plan ofcare. * Care Plan - Sarah No RN - 03/07/2025 8:49 PM EDT Problem: Adult Behavioral Health Plan of Care Goal: Plan of Care Review Outcome: Ongoing, Progressing Flowsheets (Taken 03/07/20252046) Progress: improving Patient Agreement with Plan of Care: agrees Plan of Care Reviewed With: spouse Goal: Patient-Specific Goal (Individualization) Outcome: Ongoing, Progressing Flowsheets (Taken 03/07/20252046) Patient Personal Strengths: expressive of emotions Patient Vulnerabilities: lacks insight into illness Patient/Family-Specific Goals (Include Timeframe): pt will sleep 4-6 hours this shift Individualized Care Needs: safety rounds Anxieties, Fears or Concerns: anxious about being in the hospital Goal: Adheres to Safety Considerations for Self and Others Outcome: Ongoing, Progressing Flowsheets (Taken 03/07/20252046) Adheres to Safety Considerations for Self and Others: making progress toward outcome Intervention: Develop and Maintain Individualized Safety Plan Flowsheets (Taken 03/07/20252046) Safety Measures: monitored by video Goal: Optimized Coping Skills in Response to Life Stressors Outcome: Ongoing, Progressing Flowsheets (Taken 03/07/20252046) Optimized Coping Skills in Response to Life Stressors: making progress toward outcome Intervention: Promote Effective Coping Strategies Flowsheets (Taken 03/07/20252046) Supportive Measures: active listening utilized self-care encouraged Problem: Psychotic Signs/Symptoms Goal: Improved Behavioral Control (Psychotic Signs/Symptoms) Flowsheets (Taken 03/07/20252046) Mutually Determined Action Steps (Improved Behavioral Control): identifies future-oriented goal Intervention: Manage Behavior Flowsheets (Taken 03/07/20252046) De-Escalation Techniques: diversional activity encouraged medication administered Goal: Optimal Cognitive Function (Psychotic Signs/Symptoms) Outcome: Ongoing, Progressing Flowsheets (Taken 03/07/20252046) Mutually Determined Action Steps (Optimal Cognitive Function): follows [id number] instructions Intervention: Support and Promote Cognitive Ability Flowsheets (Taken 03/07/20252046) Reorientation Measures: clock in view Communication Support Strategies: active listening utilized Goal: Improved Mood Symptoms Outcome: Ongoing, Progressing Intervention: Optimize Emotion and Mood Flowsheets (Taken 03/07/20252046) Supportive Measures: active listening utilized self-care encouraged * Nursing Note - Esthela Piedra RN - 03/07/2025 1:39 PM EDT Pt interactive and cooperative with staff. Pt presents with calm mood and full affect. Pt denies SI/HI at this time. Pt reports AVH of hearing voice saying walk down the braden and seeing spots. Ptalert and oriented x4. Pt medication compliant. Pt labs drawn. Pt encouraged to voice safety concerns and monitored for safety with 15 minute checks. Plan of care ongoing. Esthela Piedra RN * Consults - Marquis Card - 03/07/2025 11:05 AM EDT Pastoral Care Note Referral From: Patient Pastoral Care Provided For: Patient Patient Profile: Consult Reasons: Follow up, Emotional support Spiritual Assessment: Support Systems/ Spiritual Resources: Pets Spiritual Needs: Emotional support Interventions: Interventions Provided: Grief Support, Emotional support, Supportive Listening, Consulted with careteam Pastoral Care Outcomes: Patient Outcomes: Appreciative of [employer] Support [employer] met with patient to discuss her positive outlooks. Patient expressed she slept fine, and her emotional stuffed animal (Joanna) was a good support. Patient talked about her love for cats and was sad about her loss of her cat Ankur a few years ago. * Care Plan - Esthela Piedra RN - 03/07/2025 9:48 AM EDT Problem: Adult Behavioral Health Plan of Care Goal: Plan of Care Review 03/07/2025945 by Esthela Piedra RN Outcome: Ongoing, Progressing Flowsheets (Taken 03/07/2025945) Progress: improving Patient Agreement with Plan of Care: agrees Plan of Care Reviewed With: patient 03/07/2025944 by Esthela Piedra RN Outcome: Ongoing, Progressing Goal: Patient-Specific Goal (Individualization) 03/07/2025945 by Esthela Piedra RN Outcome: Ongoing, Progressing Flowsheets Taken 03/07/2025945 Patient Personal Strengths: expressive of needs expressive of emotions Patient Vulnerabilities: lacks insight into illness Taken 03/07/2025899 Patient/Family-Specific Goals (Include Timeframe): Pt will remain medication compliant during the shift. Individualized Care Needs: medication managment Anxieties, Fears or Concerns: anxious about being here 03/07/2025944 by Esthela Piedra RN Outcome: Ongoing, Progressing Goal: Adheres to Safety Considerations for Self and Others 03/07/2025945 by Esthela Piedra RN Outcome: Ongoing, Progressing 03/07/2025944 by Esthela Piedra RN Outcome: Ongoing, Progressing Intervention: Develop and Maintain Individualized Safety Plan Flowsheets (Taken 03/07/2025945) Safety Measures: suicide assessment completed monitored by video Goal: Optimized Coping Skills in Response to Life Stressors 03/07/2025945 by Esthela Piedra RN Outcome: Ongoing, Progressing 03/07/2025944 by Esthela Piedra RN Outcome: Ongoing, Progressing Intervention: Promote Effective Coping Strategies Flowsheets (Taken 03/07/2025945) Supportive Measures: active listening utilized decision-making supported goal-setting facilitated self-care encouraged Problem: Psychotic Signs/Symptoms Goal: Improved Behavioral Control (Psychotic Signs/Symptoms) 03/07/2025945 by Esthela Piedra RN Outcome: Ongoing, Progressing 03/07/2025944 by Esthela Piedra RN Outcome: Ongoing, Progressing Intervention: Manage Behavior Flowsheets (Taken 03/07/2025945) De-Escalation Techniques: appropriate behavior reinforced Goal: Optimal Cognitive Function (Psychotic Signs/Symptoms) 03/07/2025945 by Esthela Piedra RN Outcome: Ongoing, Progressing 03/07/2025944 by Esthela Piedra RN Outcome: Ongoing, Progressing Intervention: Support and Promote Cognitive Ability Flowsheets (Taken 03/07/2025945) Reorientation Measures: clock in view Communication Support Strategies: active listening utilized extra time allowed for response Goal: Improved Mood Symptoms 03/07/2025945 by Esthela Piedra RN Outcome: Ongoing, Progressing 03/07/2025944 by Esthela Piedra RN Outcome: Ongoing, Progressing Intervention: Optimize Emotion and Mood Flowsheets (Taken 03/07/2025945) Supportive Measures: active listening utilized decision-making supported goal-setting facilitated self-care encouraged * Progress Notes - Cabrera Eubanks MD - 03/07/2025 8:29 AM EDT Images from the original note were not included. [facility] Behavior[facility] Health Unit Daily Progress Note 03/07/25 Hospital Day #2 Subjective: Per nursing and whiteboard discussion: Nursing reports that in the last 24 hours, patient Kiesha Tucker, was calm, cooperative, and required no PRN medications for acting out behaviors Per Resident/Rounds Interview: Kiesha Montelongo states that overnight they slept well without nighttime awakenings. This morning, they feel well. They report No side effects due to medications. Eating breakfast this morning. Reports that they are doing well without any current AVH. Endorses occasional unsafe thoughts. When describing these thoughts she endorses that theya re about 20% . Reports she is feeling a little bit better since being in the hospital. Denies any medication side effects this morning. Encouraged her to reach out to staff if she feels unsafe today. Additional Collateral: No, see H&P ROS: (2-9) Patient denies any problems with pain, N&V, dizziness, or muscle stiffness PFSH: (1) Past Medical History: This was reviewed from the H&P and is unchanged Family Medical History: This was reviewed from the H&P and is unchanged Social History: This was reviewed from the H&P and is unchanged Past Surgical History: This was reviewed from the H&P and is unchanged Objective: .objectivebegin Temp: [36.4 ??C (97.5 ??F)-37.2 ??C (98.9 ??F)] 36.4 ??C (97.5 ??F) Heart Rate: [71-80] 80 BP: (123-136)/(77-87) 123/77 Sleep: Sleep Total Hours of Sleep: 9 (2100-) Meals: I&O: I/O last 3 completed shifts: In: 900 (8.4 mL/kg) [P.O.:900] Out: - (0 mL/kg) Weight: 107.5 kg No intake/output data recorded. EXAMINATION: (12 elements/ 2 systems) Neuro: Gait and station are intact. The muscle tone is intact and all the patient moves all extremities. Mental Status Exam: Appearance: appears stated age, wearing hospital attire, disheveled, poor hygiene Attitude: cooperative, interested in treatment Eye Contact: appropriate Speech: appropriate rate and volume, non-pressured Involuntary Movements: absent Psychomotor Activity: no significant depression or agitation Level of Consciousness: alert and attentive Memory: grossly intact Mood: good Affect: euthymic, constricted Thought Process: organized, tangential, improving Thought Content: no overt delusions, not responding to internal stimuli AVH: reports none currently SI: passive HI: denies this morning Insight: chronically impaired Judgment: chronically impaired Medications: Scheduled: Current Scheduled Medications[1] As needed: Current PRN Medications[2] Labs in last 18 hours none Encounter Date: 03/04/25 ECG Adult Result Value EKG DIAGNOSIS CLASS Borderline Abnormal Ventricular Rate 67 Atrial Rate 67 MD Interval 116 QRSD Interval 68 QT Interval 408 QTC Interval 431 P [place] 46 R [place] 5 T Wave [place] -7 Diagnosis Normal sinus rhythm Diagnosis Minimal voltage criteria for LVH, may be normal variant ( R in aVL ) Diagnosis Borderline ECG Diagnosis Diagnosis Confirmed by Sahil Priest ([id number]) on 03/06/2025 9:29:03 PM *Note: Due to a large number of results and/or encounters for the requested time period, some results have not been displayed. A complete set of results can be found in Results Review. ANTIPSYCHOTIC MONITORING TOOL Current antipsychotic(s): Olanzapine Glucose parameters: Lab Results Component Value Date HGBA1C 5.6 08/04/2024 Lab Results Component Value Date GLUCOSE 119 (H) 03/04/2025 GLUCOSE 89 08/04/2024 Concern for diabetes? No Lipid parameters: No results found for: CHOL , HDL , LDLCALC , TRIG Fasting lipid panel? N/A ordered Current antidiabetic: N/A Current antilipemic: N/A Blood pressure parameters: BP REVIEW BP (ultimate) 03/07/2025 6:16 AM 123/77 03/06/2025 4:43 PM 136/87 03/06/2025 6:43 AM 129/82 03/05/2025 6:47 PM 157/92 Concern for hypertension? No Weight parameters: Height: 157.5 cm (5' 2 ) Height Method: Stated Weight: 108 kg (237 lb) Weight Method: Standing scale BMI (Calculated): 43.34 Current antihypertensive: N/A QTc: 431 EKG Date/Time: 03/06/25 Patient is pendign lipid panel The ASCVD Risk score ([place] DK, et al., 2019) failed to calculate for the following reasons: The 2019 ASCVD risk score is only valid for ages 40 to 79 * - Cholesterol units were assumed Patient does not require statin therapy at this time. Clinical indication for treatment of metabolic concerns pertaining to ongoing antipsychotic use wasdeferred to primary treatment team for further discussion. .objectiveend Assessment/Plan Risk Assessment: Suicide/self-harm risk re-assessment was completed on re-evaluation today and Patient is currently at an acutely elevated risk of harm to self or others given concern for psychosis. Patient is demonstrating PASSIVE suicidal intent, DOES NOT appear to be able to control impulsivity, and IS exhibiting psychotic symptom burden. They currently affirm lack of specific suicide plan. This plan was notedto be NON-SPECIFIC (passive), of LIMITED (passive) lethality, and consistent with LIMITED access tomeans based on evaluation. It should be noted that this patient is at a chronically elevated risk at baseline due to the following exhibited risk factors NOT modifiable by hospitalization demonstrated in their history: historyof psychiatric disorder, never //, unemployed or unskilled, and impulsivity. The patient does, however, exhibit the following strengths/protective factors: adherent to currentmedications, connected with an outpatient provider, denying access to firearms, and able to identify reasons for living, setting/pursuing goals, exercising self direction, access to housing, financial stability, and good interpersonal relationships and supports. Risk factors modifiable by psychiatric hospitalization include acute exacerbation of a suspected psychiatric condition requiring treatment and are recommended to be addressed by initiating treatment for signs/symptoms of suspected psychiatric condition as appropriate. Involuntary hospitalization on a 72 hour hold for safety, further psychiatric evaluation, and crisis stabilization is currently indicated. Patient is holdable under KRS A as she does meet ALL holdcriteria: having a mental illness, being an acute risk of harm to self or others, reasonable expectation of benefit from admission, AND inpatient being least restrictive means of treatment Formulation: Kiesha Montelongo is a 34 y.o. female with a PMHx of none and reported psychiatric hx of Intellectual Disability and recent diagnosis of Schizoaffective Disorder who presented to [facility] via police from home with concerns of aggressive behaviors and admitted 03/04/2025 to [facility] for continued management of Behavior Disturbances. They were subsequently admitted to [facility] 03/05/25 on 72 hour hold forcontinued evaluation and management of behavioral disturbances. Psychiatric history significant forIDD and reported Schizoaffective disorder with multiple medication changes within past few months. No new recent psychosocial stressors according parents. Most likely diagnosis at this time is Intellectual Disability with behavioral disturbances, and psychosis unspecified. While it can be difficultdo diagnose a thought disorder in a patient with IDD, the patients consistent reports of command auditory hallucinations, reports of RTIS from mother and bizarre behaviors that were absent prior to 3.5 years ago in the absence of drug use suggests that this patient may have some underlying disorder in addition to her IDD. Difficult to exclude Schizophrenia, Schizoaffective disorder or Bipolar Disorder, . Admit Status: Involuntary - 72hr hold signed by [facility] attending. Hold start date/time 03/06/25, hold end date/time 03/10/25 Diagnoses: PSYCHIATRIC MANAGEMENT 1.) Intellectual Disability with Behavior Disturbance CGI Status: Compared to admission, how much has the pt's condition changed? 4 (no change) PLAN: Admission to [facility] for further inpatient psychiatric management Behavioral checks q15 minutes per unit protocol Acute Agitation Medications: Zyprexa 5 mg q6h PRN PO/IM Notify physician if medications for agitation required Comfort medications PRN Encourage participation in groups and benefit from therapeutic milieu Daily meetings and supportive therapy from treatment team Continue Escitalopram 10 mg daily Continue Buspirone 10 mg TID Discontinued Klonopin PRN Discontinued Pristique Discontinued Topiramate 2.) Psychosis unspecified CGI Status: Compared to admission, how much has the pt's condition changed? 3 (minimally improved) PLAN: Increase Zyprexa to 5mg qAM, 10mg at bedtime Ordered EKG, lipids and A1c Continue [place] 600 mg nightly Discontinue lamictal 100 mg BID Disposition: Continued admission Barriers to discharge: medication management, [facility] Cabrera Eubanks MD Internal Medicine and Psychiatry PGY-1 [1] busPIRone, 10 mg, Oral, TID escitalopram, 10 mg, Oral, Daily lithium, 600 mg, Oral, Nightly OLANZapine, 10 mg, Oral, Nightly OLANZapine zydis, 5 mg, Sublingual, Daily [2] PRN medications: acetaminophen, aluminum & magnesium hydroxide-simethicone, benzocaine, calcium carbonate, hydrOXYzine pamoate, magnesium hydroxide, melatonin, ocular lubricant, OLANZapine zydis OR OLANZapine, sodium chloride Cosigned by Hafsa Lorenzo DO at 03/08/2025 8:40 AM EDT Associated attestation - Hafsa Lorenzo DO - 03/08/2025 8:40 AM EDT I saw and evaluated the patient with the resident/fellow. I discussed the case with the resident/fellow and agree with the findings and plan as documented. * Nursing Note - Sandra Blackwood, RN - 03/07/2025 6:49 AM EDT Denies all but states occasionally does hear people. Med compliant. PRN vistaril and melatonin given. Slept. * Care Plan - Cristina Silvestre RN - 03/06/2025 9:32 PM EDT Problem: Adult Behavioral Health Plan of Care Goal: Plan of Care Review Outcome: Ongoing, Progressing Flowsheets (Taken 03/06/20252129) Progress: improving Patient Agreement with Plan of Care: agrees Plan of Care Reviewed With: patient Goal: Patient-Specific Goal (Individualization) Outcome: Ongoing, Progressing Flowsheets Taken 03/06/20252129 Patient Personal Strengths: expressive of emotions expressive of needs Patient Vulnerabilities: lacks insight into illness Taken 03/06/20251999 Patient/Family-Specific Goals (Include Timeframe): Pt will be compliant with vp medical during this shift. Individualized Care Needs: medication management Anxieties, Fears or Concerns: denies, but states she's hopeful to get better so she can return hometo her cat Dominga. Goal: Adheres to Safety Considerations for Self and Others Outcome: Ongoing, Progressing Intervention: Develop and Maintain Individualized Safety Plan Flowsheets (Taken 03/06/20251999) Safety Measures: monitored by video Goal: Absence of New-Onset Illness or Injury Outcome: Ongoing, Progressing Goal: Optimized Coping Skills in Response to Life Stressors Outcome: Ongoing, Progressing Intervention: Promote Effective Coping Strategies Flowsheets (Taken 03/06/20251999) Supportive Measures: active listening utilized self-care encouraged journaling promoted positive reinforcement provided relaxation techniques promoted Goal: Develops/Participates in Therapeutic [place] to Support Successful Transition Outcome: Ongoing, Progressing Intervention: Foster Therapeutic [place] Flowsheets (Taken 03/06/20251999) Trust Relationship/Rapport: care explained emotional support provided questions answered questions encouraged reassurance provided thoughts/feelings acknowledged Problem: Psychotic Signs/Symptoms Goal: Improved Behavioral Control (Psychotic Signs/Symptoms) Outcome: Ongoing, Progressing Intervention: Manage Behavior Flowsheets (Taken 03/06/20251999) De-Escalation Techniques: appropriate behavior reinforced medication administered Goal: Optimal Cognitive Function (Psychotic Signs/Symptoms) Outcome: Ongoing, Progressing Intervention: Support and Promote Cognitive Ability Flowsheets (Taken 03/06/20251999) Reorientation Measures: clock in view Communication Support Strategies: active listening utilized extra time allowed for response nonverbal strategies used simple statements used Goal: Improved Mood Symptoms Outcome: Ongoing, Progressing Intervention: Optimize Emotion and Mood Flowsheets (Taken 03/06/20251999) Supportive Measures: active listening utilized self-care encouraged journaling promoted positive reinforcement provided relaxation techniques promoted Diversional Activity: play television * Group Note - Felicitas Nunez - 03/06/2025 3:22 PM EDT Group Topic: Leisure Skills Group Date: 03/06/2025 Start Time: 1100 End Time: 1200 Facilitators: Felicitas Nunez Department: [facility] Inpatient Psychiatry Number of Participants: 3 Group Focus: coping skills, healthy friendships, and leisure skills Treatment Modality: Leisure Development Interventions utilized were leisure development Purpose: enhance coping skills Name: Kiesha Montelongo Date of : 1990 MR: [id number] Level of Participation: moderate Quality of Participation: cooperative Interactions with others: gave feedback Mood/Affect: brightens with interaction Triggers (if applicable): Cognition: coherent/clear Progress: Moderate Response: Childlike. Nervous when eye contact would be made - quickly looking away. Wanted stencilsto trace. Fixated on this task. Plan: patient will be encouraged to attend all groups Patients Problems: 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) Other general symptoms and signs Behavioral problem Intellectual disability Psychosis, unspecified psychosis type (CMS/HCC) * Nursing Note - Alisia Keller RN - 03/06/2025 2:56 PM EDT Pt continues admission on adult behavioral health unit. Pt out and about on the unit today-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 11:25 PM EDT [facility] BUN/Creatinine Ratio 19 03/04/2025 11:25 PM EDT [facility] Sodium, Plasma 141 136 - 145 mmol/L 03/04/2025 11:25 PM EDT [facility] Potassium, Plasma 4.4 3.6 - 4.9 mmol/L 03/04/2025 11:25 PM EDT [facility] Chloride, Plasma 107 97 - 107 mmol/L 03/04/2025 11:25 PM EDT [facility] CO2, Plasma 21(L) 22 - 29 mmol/L 03/04/2025 11:25 PM EDT [facility] Anion Gap 13 6 - 16 mmol/L 03/04/2025 11:25 PM EDT [facility] Total Calcium, Plasma 9.8 8.9 - 10.2 mg/dL 03/04/2025 11:25 PM EDT [facility] Total Protein 7.2 6.3 - 7.9 g/dL 03/04/2025 11:25 PM EDT [facility] Albumin, Plasma 4.1 3.5 - 5.2 g/dL 03/04/2025 11:25 PM EDT [facility] AST, Plasma 19 10 - 35 U/L 03/04/2025 11:25 PM EDT [facility] ALT, Plasma 24 10 - 35 U/L 03/04/2025 11:25 PM EDT [facility] Alkaline Phosphatase, Plasma 65 35 - 104 U/L 03/04/2025 11:25 PM EDT [facility] Total Bilirubin, Plasma 0.2 0.2 - 1.1 mg/dL 03/04/2025 11:25 PM EDT [facility] eGFRcr 83.9 mL/min/1.7 3m*2 03/04/2025 11:25 PM EDT [facility] Comment:Reported eGFRcr in m L/min/1.73m2 is based the CKD-EPI 2020 equation that does not use a race coefficient. Blood Venous blood specimen / Unknown Venipuncture / Unknown 03/04/2025 9:59 PM EDT 03/04/2025 11:00 PM EDT Aracely HOLLIS LAB BLOOD ORDERABLES Final Re sult [facility] [address] [place] [address] * CBC w/o diff (03/04/2025 9:59 PM EDT) WBC Count 9.91 3.70 - 10.30 10*3/uL LAB HEMATOLOGY METHOD 03/04/2025 11:30 PM EDT [facility] RBC Count 4.19 3.90 - 5.20 10*6/uL LAB HEMATOLOGY METHOD 03/04/2025 11:30 PM EDT [facility] HGB 12.7 11.2 - 15.7 g/dL LAB HEMATOLOGY METHOD 03/04/2025 11:30 PM EDT [facility] HCT 39.5 34.0 - 45.0 % LAB HEMATOLOGY METHOD 03/04/2025 11:30 PM EDT [facility] Platelet Count 265 155 - 369 10*3/uL LAB HEMATOLOGY METHOD 03/04/2025 11:30 PM EDT [facility] MCV 94 79 - 98 fL LAB HEMATOLOGY METHOD 03/04/2025 11:30 PM EDT [facility] MCH 30.3 26.0 - 32.0 pg LAB HEMATOLOGY METHOD 03/04/2025 11:30 PM EDT [facility] MCHC 32.2 30.7 - 35.5 g/dL LAB HEMATOLOGY METHOD 03/04/2025 11:30 PM EDT [facility] RDW 11.8 11.5 - 14.5 % LAB HEMATOLOGY METHOD 03/04/2025 11:30 PM EDT [facility] MPV 9.7 8.8 - 12.5 fL LAB HEMATOLOGY METHOD 03/04/2025 11:30 PM EDT [facility] nRBC 0.0 <=0.0 per 100 WBCs LAB HEMATOLOGY METHOD 03/04/2025 11:30 PM EDT [facility] Blood Venous blood specimen / Unknown Venipuncture / Unknown 03/04/2025 9:59 PM EDT 03/04/2025 11:00 PM EDT Aracely Connell PA LAB BLOOD ORDERABLES Final Re sult [facility] [address] [place] [address] * Hepatitis C Antibody with Reflex to HCV Quant PCR - Empath (03/04/2025 9:59 PM EDT) Pathologist [facility] [place] Hepatitis C Antibody Negative Negative 03/04/2025 11:30 PM EDT [facility] Blood Venous blood specimen / Unknown Venipuncture / Unknown 03/04/2025 9:59 PM EDT 03/04/2025 11:00 PM EDT Aracely Connell PA LAB BLOOD ORDERABLES Final Re sult [facility] [address] [place] [address] * Hepatitis B Surface Antigen - Empath (03/04/2025 9:59 PM EDT) Pathologist [facility] [place] Hepatitis B Surf Antigen Negative Negative 03/05/2025 12:55 AM EDT [facility] Blood Venous blood specimen / Unknown Venipuncture / Unknown 03/04/2025 9:59 PM EDT 03/04/2025 11:00 PM EDT us Aracely HOLLIS LAB BLOOD ORDERABLES Final Re sult [facility] [address] [place] [address] documented in this encounter Visit Diagnoses Diagnosis Psychosis, unspecified psychosis type (CMS/HCC)- Primary Intellectual disability Unspecified mental retardation Behavior disturbance Unspecified disturbance of conduct documented in this encounter Admitting Diagnoses Diagnosis Psychosis, unspecified psychosis type (CMS/HCC) documented in this encounter Administered Medications Inactive Administered Medications - up to 3 most recent administrations Medication Order MAR Action Action Date Dose Rate Site acetaminophen (Tylenol) tablet 650 mg 650 mg, Oral, Every 6 hours PRN, Starting on Sun03/04/25 at 2006, Until Sun03/10/25 at 182, Routine, mild pain, moderate pain Given 03/07/2025 6:06 PM EDT 650 mg Given 03/05/2025 8:14 AM EDT 650 mg aluminum & magnesium hydroxide-simethicone (Mylanta) 200-200-20 MG/5ML oral suspension 10 mL 10 mL, Oral, Every 6 hours PRN, Starting on Sun03/04/25 at 2006, Until Sun03/10/25 at 182, Routine, indigestion, heartburnIndications:UGI Symptoms benzocaine (Orajel) 10 % mucosal gel 1 Application Mouth/Throat, 4 times daily PRN, Starting on Sun03/05/25 at 2128, Until Sun03/10/25 at 1825, Routine, mild to moderate oral pain busPIRone (Buspar) tablet 10 mg 10 mg, Oral, 3 times daily, First dose on Sun03/04/25 at 2245, Until Discontinued, Routine Given 03/10/2025 8:31 AM EDT 10 mg Given 03/09/2025 8:20 PM EDT 10 mg Given 03/09/2025 4:50 PM EDT 10 mg calcium carbonate (Tums) chewable tablet 750 mg 750 mg, Oral, 4 times daily PRN, Starting on Sun03/05/25 at 2128, Until Sun03/10/25 at 1825, Routine, heartburn escitalopram (Lexapro) tablet 10 mg 10 mg, Oral, Daily, First dose on Sun03/05/25 at 0900, Until Discontinued, Routine Given 03/10/2025 8:31 AM EDT 10 mg Given 03/09/2025 8:22 AM EDT 10 mg Given 03/08/2025 9:37 AM EDT 10 mg hydrOXYzine pamoate (Vistaril) capsule 50 mg 50 mg, Oral, Every 6 hours PRN, Starting on Sun03/04/25 at 2006, Until Sun03/10/25 at 182, Routine, anxietyIndications:Anxiety Given 03/10/2025 8:55 AM EDT 50 mg Given 03/09/2025 6:25 PM EDT 50 mg Given 03/09/2025 1:20 PM EDT 50 mg lithium tablet 300 mg 300 mg, Oral, 2 times daily, First dose on Sun03/04/25 at 2245, Until Discontinued, STAT Given 03/06/2025 8:4 1 AM EDT 300 mg Given 03/05/2025 8:44 PM EDT 300 mg Given 03/05/2025 8:10 AM EDT 300 mg lithium tablet 300 mg 300 mg, Oral, Once, 1 dose, On Sun03/06/25 at 2100, STAT Given 03/06/2025 8:20 PM EDT 300 mg lithium tablet 600 mg 600 mg, Oral, Nightly, First dose on Sun03/07/25 at 2100, Until Discontinued, Routine Given 03/09/2025 8:20 PM EDT 600 mg Given 03/08/2025 8:54 PM EDT 600 mg Given 03/07/2025 8:19 PM EDT 600 mg magnesium hydroxide (Milk of Magnesia) 400 MG/5ML suspension 10 mL 10 mL, Oral, Daily PRN, Starting on Sun03/04/25 at 2006, Until Sun03/10/25 at 182, Routine, constipationIndications:Constipation melatonin tablet 3 mg 3 mg, Oral, Nightly PRN, Starting on Sun03/05/25 at 2128, Until Sun03/10/25 at 1825, Routine, sleep Given 03/09/2025 8:20 PM EDT 3 mg Given 03/08/2025 8:54 PM EDT 3 mg Given 03/07/2025 8:19 PM EDT 3 mg ocular lubricant (Artificial Tears) ophthalmic solution 1 drop 1 drop, Both Eyes, As needed, Starting on Sun03/05/25 at 2128, Until Sun03/10/25 at 1825, Routine, irritation, allergies, dry eye OLANZapine (ZyPREXA) injection 5 mg 5 mg, Intramuscular, Every 6 hours PRN, Starting on Sun03/05/25 at 1858, Until Sun03/10/25 at 1825, Routine, agitation OLANZapine (ZyPREXA) tablet 10 mg 10 mg, Oral, Nightly, First dose on Sun03/04/25 at 2245, Until Discontinued, STAT Given 03/08/2025 8:54 PM EDT 10 mg Given 03/07/2025 8:19 PM EDT 10 mg Given 03/06/2025 8:21 PM EDT 10 mg OLANZapine (ZyPREXA) tablet 10 mg 10 mg, Oral, 2 times daily, First dose (after last modification) on Sun03/09/25 at 2100, Until Discontinued, STAT Given 03/10/2025 8:31 AM EDT 10 mg Given 03/09/2025 8:20 PM EDT 10 mg OLANZapine (ZyPREXA) tablet 20 mg 20 mg, Oral, Nightly, First dose on Sun03/11/25 at 2100, Until Discontinued, Routine OLANZapine zydis (ZyPREXA) disintegrating tablet 10 mg 10 mg, Sublingual, Daily, First dose (after last modification) on Sun03/08/25 at 0930, Until Discontinued, Routine Given 03/09/2025 8:22 AM EDT 10 mg Given 03/08/2025 9:37 AM EDT 10 mg OLANZapine zydis (ZyPREXA) disintegrating tablet 5 mg 5 mg, Sublingual, Every 6 hours PRN, Starting on Sun03/05/25 at 1858, Until Sun03/10/25 at 1825, Routine, agitation OLANZapine zydis (ZyPREXA) disintegrating tablet 5 mg 5 mg, Sublingual, Daily, First dose on Sun03/06/25 at 1245, Until Discontinued, Routine Given 03/07/2025 8:50 AM EDT 5 mg Given 03/06/2025 1:02 PM EDT 5 mg QUEtiapine (SEROquel) tablet 200 mg 200 mg, Oral, Nightly, First dose on Sun03/04/25 at 2245, Until Discontinued, STAT Given 03/05/2025 8:44 PM EDT 20 0 mg sodium chloride (Everson) 0.65 % nasal spray 1 spray 1 spray, Each Nostril, As needed, Starting on Sun03/05/25 at 2128, Until Sun03/10/25 at 1825, Routine, congestion, nasal irritation topiramate (Topamax) tablet 25 mg 25 mg, Oral, Nightly, First dose on Sun03/04/25 at 2245, Until Discontinued, Routine Given 03/05/2025 8:44 PM EDT 25 mg documented in this encounter Active and Recently Administered Medications Times are shown in EDT. Scheduled Medication Order 03/08/2025 03/09/2025 03/10/2025 busPIRone (Buspar) tablet 10 mg 10 mg, Oral, 3 times daily, First dose on Sun03/04/25 at 2245, Until Discontinued, Routine 0937 (Given - Provider: Lucina Cortes RN)1538 (Given - Provider: Lucina Cortes RN)205 (Given - Provider: Lisa Morales RN) 0822 (Given - Provider: Ajit Royal RN)1650 (Given - Provider: Ajit Royal RN)2020 (Given - Provider: Sarah No RN) 0831 (Given - Provider: Ajit Royal RN)1600 (Canceled Entry - Provider: Automatic Discharge Provider - Comment: Automatically canceled at discontinue of medication order) escitalopram (Lexapro) tablet 10 mg 10 mg, Oral, Daily, First dose on Sun03/05/25 at 0900, Until Discontinued, Routine 0937 (Given - Provider: Lucina Cortes RN) 0822 (Given - Provider: Ajit Royal RN) 0831 (Given - Provider: Ajit Royal RN) lithium tablet 600 mg 600 mg, Oral, Nightly, First dose on Sun03/07/25 at 2100, Until Discontinued, Routine 2053 (Given - Provider: Lisa Morales RN) 2020 (Given - Provider: Sarah No RN) OLANZapine (ZyPREXA) tablet 10 mg (CANCELED) 10 mg, Oral, Nightly, First dose on Sun03/04/25 at 2245, Until Discontinued, STAT 2053 (Given - Provider: Lisa Morales RN) OLANZapine (ZyPREXA) tablet 10 mg (CANCELED) 10 mg, Oral, 2 times daily, First dose (after last modification) on Sun03/09/25 at 2100, Until Discontinued, STAT 2019 (Given - Provider: Sarah No RN) 0831 (Given - Provider: Ajit Royal, MOJGAN) OLANZapine (ZyPREXA) tablet 20 mg 20 mg, Oral, Nightly, First dose on Sun03/11/25 at 2100, Until Discontinued, Routine OLANZapine zydis (ZyPREXA) disintegrating tablet 10 mg (CANCELED) 10 mg, Sublingual, Daily, First dose (after last modification) on Sun03/08/25 at 0930, Until Discontinued, Routine 0937 (Given - Provider: Lucina Cortes RN) 0822 (Given - Provider: Ajit Royal RN) PRN Medication Order 03/08/2025 03/09/2025 03/10/2025 acetaminophen (Tylenol) tablet 650 mg 650 mg, Oral, Every 6 hours PRN, Starting on Sun03/04/25 at 2006, Until Sun03/10/25 at 182, Routine, mild pain, moderate pain aluminum & magnesium hydroxide-simethicone (Mylanta) 200-200-20 MG/5ML oral suspension 10 mL 10 mL, Oral, Every 6 hours PRN, Starting on Sun03/04/25 at 2006, Until Sun03/10/25 at 182, Routine, indigestion, heartburn benzocaine (Orajel) 10 % mucosal gel 1 Application Mouth/Throat, 4 times daily PRN, Starting on Sun03/05/25 at 2128, Until Sun03/10/25 at 182, Routine, mild to moderate oral pain calcium carbonate (Tums) chewable tablet 750 mg 750 mg, Oral, 4 times daily PRN, Starting on Sun03/05/25 at 2128, Until Sun03/10/25 at 1825, Routine, heartburn hydrOXYzine pamoate (Vistaril) capsule 50 mg 50 mg, Oral, Every 6 hours PRN, Starting on Sun03/04/25 at 2006, Until Sun03/10/25 at 1825, Routine, anxiety 1306 (Given - Provider: Lucina Cortes, RN)1947 (Given - Provider: Sandra Blackwood, RN) 1320 (Given - Provider: Ludivina Frederick, RN)1825 (Given - Provider: Ludivina Frederick, RN) 0855 (Given - Provider: Ajit Royal RN) magnesium hydroxide (Milk of Magnesia) 400 MG/5ML suspension 10 mL 10 mL, Oral, Daily PRN, Starting on Sun03/04/25 at 2006, Until Sun03/10/25 at 1825, Routine, constipation melatonin tablet 3 mg 3 mg, Oral, Nightly PRN, Starting on Sun03/05/25 at 2127, Until Sun03/10/25 at 182, Routine, sleep 2053 (Given - Provider: Lisa Morales RN) 2019 (Given - Provider: Sarah No RN) ocular lubricant (Artificial Tears) ophthalmic solution 1 drop 1 drop, Both Eyes, As needed, Starting on Sun03/05/25 at 8, Until Sun03/10/25 at 1825, Routine, irritation, allergies, dry eye OLANZapine (ZyPREXA) injection 5 mg(Linked Group 1) 5 mg, Intramuscular, Every 6 hours PRN, Starting on Sun03/05/25 at 1858, Until Sun03/10/25 at 1825, Routine, agitation OLANZapine zydis (ZyPREXA) disintegrating tablet 5 mg(Linked Group 1) 5 mg, Sublingual, Every 6 hours PRN, Starting on Sun03/05/25 at 1858, Until Sun03/10/25 at 1825, Routine, agitation sodium chloride (Everson) 0.65 % nasal spray 1 spray 1 spray, Each Nostril, As needed, Starting on Sun03/05/25 at 2127, Until Sun03/10/25 at 1825, Routine, congestion, nasal irritation Linked Groups Order Group 1: OLANZapine zydis (ZyPREXA) disintegrating tablet 5 mgJump to med 5 mg, Sublingual, Every 6 hours PRN, Starting on Sun03/05/25 at 1858, Until Sun03/10/25 at 1825, Routine, agitation Or OLANZapine (ZyPREXA) injection 5 mgJump to med 5 mg, Intramuscular, Every 6 hours PRN, Starting on Sully 03/05/25 at 1858, Until Sun03/10/25 at 1825, Routine, agitation documented in this encounter Additional Health Concerns Assessment Noted Time PHQ-9 Depression Total Score: 9 03/04/20 7:48 PM EDT A fall risk assessment has been complete d for the patient 01/07/2025 10:50 AM EDT A Body Mass Index follow-up plan has been documented for the patient 03/10/2025 12:49 PM EDT documented as of this encounter Care Teams Roof Technician Relationship Specialty Start Date End Date Chirag Rea MD [address] [place] [address] PCP - General 09/17/24 Yara Cornejo MD [address] [facility] [address] [place] [address] Service Attending Neuro-Ophthalmology 01/07/25 documented as of this encounter
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
--- OUTSIDE RECORDS SUMMARY | 2025-04-27 12:19 | XMS_ITS | Encounter Summary ---
Author Organization Healthcare Address [address] [place] [address] Care Team Providers Care Fittings Tightener Name Role Phone Chirag Rea MD Primary Care Provider [phone] Yara Cornejo MD Unavailable [phone] Encounter Details Date Type Department Care Team (Late st Contact Info) Description 08/19/2021 Orders Only External Location [address] [place] [address] Provider, External Social History Tobacco [...] on filedocumented in this encounter Care Teams Fittings Tightener Relationship Specialty Start Date End Date Chirag Rea MD [address] [place] [address] PCP - General 09/17/24 Yara Cornejo MD [address] [facility] [address] [place] [address] Service Attending Neuro-Ophthalmology 01/07/25 documented as of this encounter
--- OUTSIDE RECORDS SUMMARY | 2025-04-27 12:19 | XMS_ITS | Clinical Summary ---
Author Organization [facility] Address [address] [place] [address] Care Team Providers Care Weight Loss Counselor Name Role Phone Chirag Rea MD [...] Encounters Date Type Department Care Team Description 04/14/2025 Telephone [facility] [address] [place] [address] Chirag Rea MD CARE PLAN (APPROVAL OF CARE PLAN) 03/11/2025 Transitional Care Management Telephone Encounter [facility] [address] [place] [address] Tari Lindsey RN 03/10/2025 Readmission Management [facility] [address] [place] [address] Khushbu Lambert, RN from Last 3 Months Immunizations Immunization Administration [...] 2013 ANNUAL WELLNESS VISIT 04/16/2023 INFLUENZA VACCINE 01/16/2025 04/01/2024, , 04/03/2022, Additional history exists TDAP/TD VACCINES (2 - Td or Tdap) 12/16/2033 12/17/2023 HEPATITIS C SCREENING Completed 03/04/2025 , 03/04/2025, 04/16/2023 Pneumococcal Vaccine 0-49 Aged Out No longer eligible based on patient's age to complete this topic Procedures Procedure Name Priority Date/Time Associated Diagnosis Comments SCANNED - LABS 02/23/2025 SCANNED - LABS 02/23/2025 SCANNED - LABS 02/09/2025 SCANNED - LABS 02/09/2025 SCANNED - FOOT EXAM 02/03/2025 HEPATITIS C ANTIBODY Routine 04/16/2023 2:55 PM EDT Encounter for well adult exam without abnormal findings Need for hepatitis C screening test from Last 3 Months or Most Recently Relevant to Health Maintenance Results * LABS SCANNED (02/23/2025) Only the most recent of4 resultswithin the time period is included. Chirag Rea MD LAB BLOOD ORDERABLES Fin al Result * FOOT EXAM SCANNED (02/03/2025) Chirag Rea MD CHART REVIEW TABS Fin al Result from Last 3 Months Insurance MEDICAID [place] MEDICARE A & B Advance Directives Documents on File Type Date Recorded Patient Director Utilization Management Expl anation [employer] RECORDS - SCAN 06/20/2023 12:56 PM ORDER APPOINTMENT OF GUARDIAN, [facility], 05/15/2023 Care Teams Weight Loss Counselor Relationship Specialty Start Date End Date Chirag Rea MD [address] [place] [address] PCP - General Family Medicine 04/16/23
--- OUTSIDE RECORDS SUMMARY | 2025-04-27 12:19 | XMS_ITS | Encounter Summary ---
Author Organization [facility] Address [address] [place] [address] Care Team Providers Care Real Estate Processor Name Role Phone Chirag Rodarte MD Primary Care Provider + Reason for Visit * Reason Onset Date Comments CARE PLAN 04/14/2025 APPROVAL OF CARE PLAN Encounter Details Date Type Department Care Team (Late st Contact Info) Description 04/14/2025 Telephone [facility] [address] [place] [address] Chirag Rodarte MD [address] [place] [address] CARE PLAN (APPROVAL OF CARE PLAN) Social History Tobacco Use Types Packs/Day Years [...] Telephone Encounter - Aniya Owen MA - 04/15/2025 9:10 AM EDT Left a message informing Mau what Dr. Rodarte stated. * Telephone Encounter - Chirag Rodarte MD - 04/14/2025 1:14 PM EDT There are no changes to make to the care plan * Telephone Encounter - Paz Posadas RegSched Rep - 04/14/2025 11:16 AM EDT SUZANNA FRANKS [facility] [place]- MAU (DIRECTOR) [phone] DR. RODARTE, DO YOU HAVE ANY CHANGES TO PTS CARE PLAN? DO YOU APPROVE OF THE CARE PLAN? MAU SAID SHE WILL ACCEPT A VERBAL ON YOUR DECISION. SHE WILL FAX THE CARE PLAN, IF NEEDED. * Telephone Encounter - Leslie Trinidad RegSched Rep - 04/14/2025 11:14 AM EDT A user error has taken place: encounter opened in error, closed for administrative reasons. documented in this encounter Plan of Treatment Not on file documented as of this encounter Visit Diagnoses Not on filedocumented in this encounter Care Teams Real Estate Processor Relationship Specialty Start Date End Date Chirag Rodarte [place] [address] PCP - General Family Medicine 04/16/23 documented as of this encounter
--- OUTSIDE RECORDS SUMMARY | 2025-04-27 12:20 | XMS_ITS | Encounter Summary ---
Author Organization Healthcare Address [address] [id number] Care Team Providers Care Behavior Interventionist Name Role Phone Chirag Rea MD Primary Care Provider [phone] Yara Cornejo MD Unavailable [phone] Encounter Details Date Type Department Care Team (Latest Contact Info) Description 04/01/2025 Travel Social History Tobacco Use Types Packs/Day [...] Time PHQ-9 Depression Total Score: 9 03/04/20 25 7:48 PM EDT A fall risk assessment has been complete d for the patient 01/07/2025 10:50 AM EDT A Body Mass Index follow-up plan has been documented for the patient 04/01/2025 1:51 PM EDT documented as of this encounter Care Teams Behavior Interventionist Relationship Specialty Start Date End Date Chirag Rea MD [address] [place] [address] PCP - General 09/17/24 Yara Cornejo MD [address] [place] [address] Service Attending Neuro-Ophthalmology 01/07/25 documented as of this encounter
--- OUTSIDE RECORDS SUMMARY | 2025-04-27 12:20 | XMS_ITS | Encounter Summary ---
Author Organization [facility] Address [address] [place] [address] Care Team Providers Care Still Runner Name Role Phone Chirag Rea MD Primary Care Provider + Encounter Details Date Type Department Care Team (Late st Contact Info) Description 03/11/2025 Transitional Care Management Telephone Encounter [facility] [address] [place] [address] Tari Lindsey, RN Social History Tobacco Use Types Packs/Day Years [...] as of this encounter Miscellaneous Notes * Outreach Note - Tari Lindsey RN - 03/11/2025 1:39 PM EDT Images from the original note were not included. Call Center TCM Note Flowsheet Row Responses [facility] patient discharged from? Non- [[facility]] Does the patient have one of the following disease processes/diagnoses(primary or secondary)? Other TCM attempt successful? No Unsuccessful attempts Attempt 1 Revoked Reason Other [see [facility] discharge notes] Tari Anand - Registered Nurse 03/11/2025, 13:54 EDT documented in this encounter Plan of Treatment Not on file documented as of this encounter Visit Diagnoses Not on filedocumented in this encounter Care Teams Still Runner Relationship Specialty Start Date End Date Chirag Rea MD [address] [place] [address] PCP - General Family Medicine 04/16/23 documented as of this encounter
--- OUTSIDE RECORDS SUMMARY | 2025-04-27 12:20 | XMS_ITS | Encounter Summary ---
Author Organization Healthcare Address [address] [place] [address] Care Team Providers Care Gelatin Dynamite Packing Operator Name Role Phone Chirag Rea MD Primary Care Provider [phone] Yara Cornejo MD Unavailable [phone] Encounter Details Date Type Department Care Team (Late st Contact Info) Description 03/13/2025 Telephone [facility] [address] [place] [address] [place] [address] Social History Tobacco Use Types Packs/Day Years [...] encounter Miscellaneous Notes * Telephone Encounter - ShayyBrigitte granger Ivteh - 03/13/2025 1:50 PM EDT Behavioral Health Call Back Note Slim Montelongo 1990 [id number] Best contact phone number: [phone] Discharge date and Time: 03/10/25 Call Questions: How are you doing since discharge: Guardian states that she is doing okay other than having COVID We want to remind you that you have a follow-up appointment with: Will you be able to keep this appointment? Have you been able to obtain your prescpription medication and take your medications as ordered? Do you have immediate concerns for your health or safety that cannot wait for your aftercare appointment? What actions are you taking to keep yourself safe? Additional comments/follow-up: Written/Dictated by Brigitte Lucas on 03/13/25 at 1:50 PM. documented in this encounter Plan of Treatment [...] documented as of this encounter Care Teams Gelatin Dynamite Packing Operator Relationship Specialty Start Date End Date Chirag Rea MD [address] [place] [address] PCP - General 09/17/24 [facility] [address] [email or web address] [address] [place] [address] Service Attending Neuro-Ophthalmology 01/07/25 documented as of this encounter
--- OUTSIDE RECORDS SUMMARY | 2025-04-27 12:20 | XMS_ITS | Clinical Summary ---
Author Organization Healthcare Address [address] [place] [address] Care Team Providers Care Architecture Internship Name Role Phone Chirag Rea MD Primary Care Provider [phone] Yara Cornejo MD Unavailable Allergies Active Allergy Reactions Criticality Noted Date Comments Lamotrigine Rash Medium 02/02/2022 Only if taken in higher doses, tolerated 100mg dose for years per family Latex Hives Medium 12/05/2021 Medications acetaminophen (Tylenol) 325 MG tabletIndication s:Pain Take 2 tablets by mouth. 06/30/19 25 Active busPIRone (Buspar) 10 MG tabletIndication s:Anxiety Disorder Take 1 tablet by mouth 3 times a day. Active clonazePAM (KlonoPIN) 0.5 MG tabletIndication s:Agitation Take 1 tablet by mouth 3 times a day as needed (agitation). Active OLANZapine (ZyPREXA) 20 MG tabletIndication s:Schizophrenia, Schizophrenia Take 0.5 tablets by mouth 2 times a day. 30 tablet 03/11/20 25 Active lithium 300 MG capsuleIndicatio ns:IDD with behavioral disturbances Take 2 capsules by mouth nightly. 03/10/20 25 Active QUEtiapine (SEROquel) 25 MG tablet TAKE 1 TO 2 TABLETS BY MOUTH ONCE DAILY 02/10/20 25 Active escitalopram (Lexapro) 10 MG tabletIndication s:Major Depressive Disorder Take 1 tablet by mouth daily. 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 Behavioral problem 09/17/2024 Resolved Problems Problem Noted Date Diagnosed Date Resolved Date Other general symptoms and signs 09/17/2024 03/08/2025 Encounters Date Type Department Care Team Description 04/01/2025 11:40 AM EDT [facility] Visit [facility] [address] [place] [address] Yara Cornejo MD MALIKA (obstructive sleep apnea) (Primary Dx); Intellectual disability; Behavioral problem; Traumatic brain injury with loss of consciousness, sequela; Cognitive change 04/01/2025 Travel 03/13/2025 Telephone [facility] Inpatient Psychiatry [address] [place] [address] Brigitte Lucas 03/05/2025 Plan of Care Documentation [facility] Inpatient Psychiatry [address] [place] [address] 03/04/2025 8:34 PM EDT - 03/10/2025 4:20 PM EDT Hospital Encounter [facility] Inpatient Psychiatry [address] [place] [address] Mirian Moran, Hafsa Garcia DO Intellectual disability (Primary Dx); Behavior disturbance Discharge Disposition: Home or Self Care 03/04/2025 Travel from Last 3 Months Immunizations Immunization [...] file Not on file Not on file Last Filed Vital Signs Vital Sign Reading Time Taken Comments Blood Pressure 100/65 04/01/2025 12:13 PM EDT Pulse 86 04/01/2025 12:13 PM EDT Temperature 36.6 C (97.8 F) 03/10/2025 6:07 AM EDT Respiratory Rate 18 03/08/2025 4:12 PM EDT Oxygen Saturation 94% 04/01/2025 12:13 PM EDT Inhaled Oxygen Concentration - - Weight 110 kg (242 lb 15.2 oz) 04/01/2025 12:13 PM EDT Height 157.5 cm (5' 2 ) 04/01/2025 12:13 PM EDT Body Mass Index 44.44 04/01/2025 12:13 PM EDT Plan of Treatment Health Maintenance Due Date Last Done Comments [facility]-Medicare Annual Wellness (AWV) 1992 [facility]-Infant/Child/Adol SDOH [...] (#1) 02/16/202504/01, 04/16/2023, 04/03/2022, Additional history exists [facility]-Depression Screening 03/04/2026 03/04/2025, 02/16 [facility]-Diabetes: Hemoglobin A1C 03/07/2026 03/07/2025, 08/04/2024, 04/16/2023 [facility]-DTaP,Tdap,and Td Vaccines (2 - Td or Tdap) 12/16/2033 12/17/2023 [facility]-Zoster Vaccines (1 of 2) 2042 [facility]-Hepatitis C Screening Completed 04/16/2023 [id number] Vaccine Completed 04/01/2024, 04/03/2022, 06/15/2021, Additional history exists [facility]-HIV Screening Completed 03/04/2025 [facility]-Obesity Intervention Completed 025, 03/04/2025, 01/07/2025, Additional history exists [facility]-HIB Vaccines Aged Out No longer e [...] ADULT Routine 03/06/2025 3:07 PM EDT POCT , URINE STAT 03/05/2025 3:36 PM EDT POCT DRUGS OF ABUSE, URINE STAT 03/05/2025 3:36 PM EDT LITHIUM, SERUM STAT Add-on 03/04/2025 9:59 PM EDT HIV 1/2 ANTIBODY/ANTIGEN SCREEN WITH REFLEX TO HIV I/II DIFFERENTIATION STAT 03/04/2025 9:59 PM EDT FREE T4, PLASMA STAT 03/04/2025 9:59 PM EDT TSH STAT 03/04/2025 9:59 PM EDT COMPREHENSIVE METABOLIC PANEL, PLASMA STAT 03/04/2025 9:59 PM EDT CBC W/O DIFFERENTIAL STAT 03/04/2025 9:59 PM EDT HIV 1/2 ANTIBODY/ANTIGEN SCREEN W/REFLEX TO HIV 1/2 ANTIBODY DIFFERENTIATION STAT 03/04/2025 9:59 PM EDT HEPATITIS C ANTIBODY WITH REFLEX TO HCV QUANT PCR - EMPATH STAT 03/04/2025 9:59 PM EDT HEPATITIS B SURFACE ANTIGEN - EMPATH STAT 03/04/2025 9:59 PM EDT from Last 3 Months Results * (ABNORMAL) Hemoglobin A1c (03/07/2025 10:30 AM EDT) Hemoglobin A1c 5.8(H) <5.7 % 03/07/2025 2:00 PM EDT [facility] Blood Venous blood specimen / Unknown Venipuncture / Unknown 03/07/2025 10:30 AM EDT 03/07/2025 10:43 AM EDT Narrative [facility] - 03/07/2025 2:00 PM EDT HA1C Interpretive Data: Diagnosis of Diabetes: Diabetic > or = 6.5% Pre-diabetic 5.7 to 6.4% Non-diabetic < or = 5.6% Glycemic Targets for Type I and Type II Diabetics: Non- Adults <7.0% Adults <6.0% Children and Adolescents <7.5% Source: [place] [employer]. Standards of medical care in diabetes,2017. Diabetes Care.2017:40 (suppl 1):S1-S135. us Hafsa Lorenzo DO LAB BLOOD ORDERABLES Final Result [facility] [address] [place] [address] * (ABNORMAL) Lipid panel (03/07/2025 10:30 AM [...] 249(H) <150 mg/dL 03/07/2025 11:07 AM EDT [facility] Comment: Triglyceride Reference Range (age [...] hours? No 03/07/2025 11:07 AM EDT [facility] Blood Venous blood specimen / Unknown Venipuncture / Unknown 03/07/2025 10:30 AM EDT 03/07/2025 10:43 AM EDT us Hafsa Lorenzo DO LAB BLOOD ORDERABLES Final Result [facility] [address] [place] [address] * ECG Adult (03/06/2025 3:07 PM EDT) EKG DIAGNOSIS CLASS Borderline Abnormal MUSE ECG Ventricular Rate 67 BPM MUSE ECG Atrial Rate 67 BPM MUSE ECG [place] Interval 116 ms MUSE ECG QRSD Interval 68 ms MUSE ECG QT Interval 408 ms MUSE ECG QTC Interval 431 ms MUSE ECG P Crimora 46 degrees MUSE ECG R Crimora 5 degrees MUSE ECG T Wave Crimora -7 degrees MUSE ECG Diagnosis Normal sinus rhythm MUSE ECG Diagnosis Minimal voltage criteria for LVH, may be normal variant ( R in aVL ) MUSE ECG Diagnosis Borderline ECG MUSE ECG Diagnosis MUSE ECG Diagnosis Confirmed by Sahil Priest ([id number]) on 03/06/2025 9:29:03 PM MUSE ECG 03/06/2025 3:07 PM EDT 03/06/2025 9:29 PM EDT us Hafsa Lorenzo DO ECG ORDERABLES Final Resu lt MUSE ECG * POCT Drugs of Abuse (03/05/2025 3:36 PM EDT) POC Amphetamine Screen, Urine Negative Negative POC [...] Normal Normal POC UDS Kit Lot Number [id number] POC UDS Kit Expiration 11-06-2026 POC UDS Collection Observed? Observed Urine 03/05/2025 3:36 PM EDT us Aracely HOLLIS POINT OF CARE TEST ENTER/EDIT ORDERABLES Final Result * POCT Urine (03/05/2025 3:36 PM EDT) Urine - Point of Care Negative Negative [...] procedure / Unknown 03/05/2025 3:36 PM EDT us Aracely HOLLIS POINT OF CARE TEST ENTER/EDIT ORDERABLES Final Result * Hepatitis B Surface Antigen - Empath (03/04/2025 9:59 PM EDT) Pathologist [facility] Hepatitis B Surf Antigen Negative Negative 03/05/2025 12:55 AM EDT [facility] Blood Venous blood specimen / Unknown Venipuncture / Unknown 03/04/2025 9:59 PM EDT 03/04/2025 11:00 PM EDT us Aracely HOLLIS LAB BLOOD ORDERABLES Final Re sult [facility] [address] [place] [address] * Hepatitis C Antibody with Reflex to HCV Quant PCR - Empath (03/04/2025 9:59 PM EDT) Hepatitis C Antibody Negative Negative 03/04/2025 11:30 PM EDT [facility] Blood Venous blood specimen / Unknown Venipuncture / Unknown 03/04/2025 9:59 PM EDT 03/04/2025 11:00 PM EDT Aracely HOLLIS LAB BLOOD ORDERABLES Final Re sult Performing Organization Address [facility]/ZIP Co de Phone Number [facility] [address] [place] [address] * HIV 1 & 2 Antibody/Antigen Screen (03/04/2025 9:59 PM EDT) Pathologist [facility] HIV 1 & 2 Antibody/Antigen Screen Non Reactive Non Reactive 03/04/2025 11:30 PM EDT [facility] Comment:Screening for HIV 1 & 2 antibodies, and P24 antigen is NONREACTIVE. No confirmatory testing is required. Blood Venous blood specimen / Unknown Venipuncture / Unknown 03/04/2025 9:59 PM EDT 03/04/2025 11:00 PM EDT Aracely HOLLIS LAB BLOOD ORDERABLES Final Re sult Performing Organization Address City/[facility] Co de Phone Number [facility] [address] [place] [address] * CBC w/o diff (03/04/2025 9:59 PM EDT) [facility] WBC Count 9.91 3.70 - 10.30 10*3/uL LAB HEMATOLOGY METHOD 03/04/2025 11:30 PM EDT [facility] RBC Count 4.19 3.90 - 5.20 10*6/uL LAB HEMATOLOGY METHOD 03/04/2025 11:30 PM EDT [facility] HGB 12.7 11.2 - 15.7 g/dL LAB HEMATOLOGY METHOD 03/04/2025 11:30 PM EDT [facility] HCT 39.5 34.0 - 45.0 % LAB HEMATOLOGY METHOD 03/04/2025 11:30 PM EDT [facility] Platelet Count 265 155 - 369 10*3/uL LAB HEMATOLOGY METHOD 03/04/2025 11:30 PM EDT [facility] MCV 94 79 - 98 fL LAB HEMATOLOGY METHOD 03/04/2025 11:30 PM EDT [facility] MCH 30.3 26.0 - 32.0 pg LAB HEMATOLOGY METHOD 03/04/2025 11:30 PM EDT [facility] MCHC 32.2 30.7 - 35.5 g/dL LAB HEMATOLOGY METHOD 03/04/2025 11:30 PM EDT [facility] RDW 11.8 11.5 - 14.5 % LAB HEMATOLOGY METHOD 03/04/2025 11:30 PM EDT [facility] MPV 9.7 8.8 - 12.5 fL LAB HEMATOLOGY METHOD 03/04/2025 11:30 PM EDT [facility] nRBC 0.0 <=0.0 per 100 WBCs LAB HEMATOLOGY METHOD 03/04/2025 11:30 PM EDT [facility] Blood Venous blood specimen / Unknown Venipuncture / Unknown 03/04/2025 9:59 PM EDT 03/04/2025 11:00 PM EDT Aracely HOLLIS LAB BLOOD ORDERABLES Final Re sult Performing Organization Address City/[facility] Co de Phone Number [facility] [address] [place] [address] * Thyroid Stimulating Hormone, Plasma (03/04/2025 9:59 PM EDT) Thyroid Stimulating Hormone, Plasma 3.56 0.40 - 4.20 uIU/mL 03/04/2025 11:25 PM EDT [facility] Blood Venous blood specimen / Unknown Venipuncture / Unknown 03/04/2025 9:59 PM EDT 03/04/2025 11:00 PM EDT Narrative [facility] - 03/04/2025 11:25 PM EDT Trimester Specific Ranges TSH ( IU/mL) 1st Trimester 0.1 - 3.0 2nd Trimester 0.19 - 4.06 3rd Trimester 0.3 - 3.7 Aracely Connell PA LAB BLOOD ORDERABLES Final Re sult Performing Organization Address City/[facility]/ZIP Co de Phone Number [facility] [address] [place] [address] * (ABNORMAL) Free T4, Plasma (03/04/2025 9:59 PM EDT) Free T4, Plasma 0.7(L) 0.8 - 1.7 ng/dL 03/04/2025 11:25 PM EDT [facility] Blood Venous blood specimen / Unknown Venipuncture / Unknown 03/04/2025 9:59 PM EDT 03/04/2025 11:00 PM EDT Narrative [facility] - 03/04/2025 11:25 PM EDT Free T4 Trimester Specific Ranges 1st Trimester 0.9 - 1.50 ng/dL 2nd Trimester 0.7 - 1.40 ng/dL 3rd Trimester 0.7 - 1.24 ng/dL Aracely Phillip [employer] PA LAB BLOOD ORDERABLES Final Re sult Performing Organization Address City/[facility]/ZIP Co de Phone Number [facility] [address] [place] [address] * Summerset level (03/04/2025 9:59 PM EDT) [place], Serum 0.52 <0.1 mmol/L 03/05/2025 1:51 AM EDT [facility] Blood Venous blood specimen / Unknown Venipuncture / Unknown 03/04/2025 9:59 PM EDT 03/04/2025 11:00 PM EDT Narrative [facility] - 03/05/2025 1:51 AM EDT Therapeutic Range: 0.6-1.2 mmol/L 12 hours after last dose. [employer] PA LAB BLOOD ORDERABLES Final Re sult [facility] [address] [place] [address] * (ABNORMAL) CMP (03/04/2025 9:59 PM EDT) Glucose, Plasma 119(H) 74 - 99 mg/dL 03/04/2025 11:25 PM EDT [facility] BUN, Plasma 18 7 - 21 mg/dL 03/04/2025 11:25 PM EDT [facility] Creatinine, Plasma 0.93 0.60 - 1.10 mg/dL 03/04/2025 11:25 PM EDT [facility] BUN/Creatinine Ratio 19 03/04/2025 11:25 PM EDT [facility] Sodium, Plasma 141 136 - 145 mmol/L 03/04/2025 11:25 PM EDT [facility] Potassium, Plasma 4.4 3.6 - 4.9 mmol/L 03/04/2025 11:25 PM EDT [facility] Chloride, Plasma 107 97 - 107 mmol/L 03/04/2025 11:25 PM EDT [facility] CO2, Plasma 21(L) 22 - 29 mmol/L 03/04/2025 11:25 PM EDT [facility] Anion Gap 13 6 - 16 mmol/L 03/04/2025 11:25 PM EDT [facility] Total Calcium, Plasma 9.8 8.9 - 10.2 mg/dL 03/04/2025 11:25 PM EDT [facility] Total Protein 7.2 6.3 - 7.9 g/dL 03/04/2025 11:25 PM EDT [facility] Albumin, Plasma 4.1 3.5 - 5.2 g/dL 03/04/2025 11:25 PM EDT [facility] AST, Plasma 19 10 - 35 U/L 03/04/2025 11:25 PM EDT [facility] ALT, Plasma 24 10 - 35 U/L 03/04/2025 11:25 PM EDT [facility] Alkaline Phosphatase, Plasma 65 35 - 104 U/L 03/04/2025 11:25 PM EDT [facility] Total Bilirubin, Plasma 0.2 0.2 - 1.1 mg/dL 03/04/2025 11:25 PM EDT [facility] eGFRcr 83.9 mL/min/1.7 3m*2 03/04/2025 11:25 PM EDT [facility] Comment:Reported eGFRcr in m L/min/1.73m2 is based the CKD-EPI 2020 equation that does not use a race coefficient. Blood Venous blood specimen / Unknown Venipuncture / Unknown 03/04/2025 9:59 PM EDT 03/04/2025 11:00 PM EDT us Aracely HOLLIS LAB BLOOD ORDERABLES Final Re sult [facility] [address] [place] [address] from Last 3 Months Insurance [place] MEDICARE Advance Directives * Full Code (Latest Code Status on File) Date Activated Date Inactivated Comments 03/05/2025 3:09 PM 03/10/2025 6:30 PM Question Answer Comments I have reviewed the capacity from the link above and, if needed, have updated to appropriate status: Yes Care Teams Architecture Internship Relationship Specialty Start Date End Date Chirag Rea MD [address] [place] [id number] PCP - General 09/17/24 Yara Cornejo MD [address] [place] [address] Service Attending Neuro-Ophthalmology 01/07/25
--- OUTSIDE RECORDS SUMMARY | 2025-04-27 12:20 | XMS_ITS | Encounter Summary ---
Author Organization Healthcare Address [address] [id number] Care Team Providers Care Steam Locomotive Firer/Fireman Name Role Phone Chirag Rea MD Primary Care Provider [phone] Yara Cornejo MD Unavailable [phone] Encounter Details Date Type Department Care Team (Latest Contact Info) Description 03/04/2025 Travel Social History Tobacco Use Types Packs/Day [...] documented as of this encounter Functional Status * Over the [...] down Not at all 03/04/2025 7:48 PM [facility] Renetta Bedoya RN Trouble concentrating on things, such as reading the newspaper or watching television Several days 03/04/2025 7:48 PM EDT Renetta Bedoya RN Moving or speaking so [...] Bedoya RN documented as of this encounter Plan of [...] documented as of this encounter Care Teams Steam Locomotive Firer/Fireman Relationship Specialty Start Date End Date Chirag Rea MD [address] [place] [address] PCP - General 09/17/24 Yara Cornejo MD [address] [facility] [address] [place] [address] Service Attending Neuro-Ophthalmology 01/07/25 documented as of this encounter
--- OUTSIDE RECORDS SUMMARY | 2025-04-27 12:20 | XMS_ITS | Encounter Summary ---
Author Organization Healthcare Address [address] [place] [address] Care Team Providers Care Agency Operator Name Role Phone Chirag Rea MD Primary Care Provider [phone] Yara Cornejo MD Unavailable [phone] Encounter Details Date Type Department Care Team (Late st Contact Info) Description 03/05/2025 Plan of Care Documentation [facility] Inpatient Psychiatry [address] [place] [address] Social History Tobacco Use Types Packs/Day Years [...] documented as of this encounter Care Teams Agency Operator Relationship Specialty Start Date End Date Chirag Rea MD [address] [place] [address] PCP - General 09/17/24 Yara Cornejo MD [address] [facility] [address] [place] [id number] Service Attending Neuro-Ophthalmology 01/07/25 documented as of this encounter
--- OUTSIDE RECORDS SUMMARY | 2025-04-27 12:20 | XMS_ITS | Encounter Summary ---
Author Organization [facility] Address [address] [place] [address] Care Team Providers Care Branch General Manager Name Role Phone Chirag Rea MD Primary Care Provider + Encounter Details Date Type Department Care Team (Late st Contact Info) Description 03/10/2025 Readmission Management [facility] [address] [place] [address] Abbey Lambert, RN Social History Tobacco Use Types Packs/Day [...] encounter Miscellaneous Notes * Outreach Note - Abbey Lambert RN - 03/10/2025 7:49 PM EDT Prep Survey Flowsheet Row Responses [facility] [place] patient discharged from? Non-BH Is LACE score less than 10 ? Non-BH Discharge Eligibility [facility] Date of Admission 03/04/25 Date of Discharge 03/10/25 Discharge Disposition Home or Self Care Discharge diagnosis Intellectual disability/Behavor disturbance Does the patient have one of the following disease processes/diagnoses(primary or secondary)? Other Does the patient have Home health ordered? No Prep survey completed? Yes ABBEY Lazaro - Registered Nurse documented in this encounter Plan of Treatment Not on file documented as of this encounter Visit Diagnoses Not on filedocumented in this encounter Care Teams Branch General Manager Relationship Specialty Start Date End Date Chirag Rea MD [address] [place] [address] PCP - General Family Medicine 04/16/23 documented as of this encounter
--- OUTSIDE RECORDS SUMMARY | 2025-04-27 12:20 | XMS_ITS | Encounter Summary ---
Author Organization [facility] Address [address] [place] [address] Care Team Providers Care Training Manager Name Role Phone Chirag Rea MD Primary Care Provider + Encounter Details Date Type Department Care Team (Late st Contact Info) Description 01/08/2025 Results Follow-Up [facility] FAMILY MEDICINE [address] [place] [address] Chirag Rea MD [address] [place] [address] Social History Tobacco Use Types [...] on filedocumented in this encounter Care Teams Training Manager Relationship Specialty Start Date End Date Chirag Rea MD [address] [place] [address] PCP - General Family Medicine 04/16/23 documented as of this encounter
[2025-04-27 12:44] LABS: Microscopic, Urine URINE MICROSCOPIC (MICROSCOPIC)
[2025-04-27 13:44] LABS: Alanine Aminotransferase 25 U/L (12-78); Albumin Level 4.6 g/dl (3.5-5.0); Albumin/Globulin Ratio 1.4 (1.1-1.8); Alkaline Phosphatase 83 U/L (38-126); Anion Gap 13.5 mEq/L (5-15); Aspartate Amino Transferase 26 U/L (14-36); Bilirubin,Total 0.6 mg/dl (0.2-1.3); Blood Urea Nitrogen 17 mg/dl (7-17); Calcium 10.2 mg/dl (8.4-10.2); Carbon Dioxide 28 mmol/L (22.0-30.0); Chloride 97 mmol/L (98-107); Creatinine,Serum 0.80 mg/dl (0.52-1.04); Estimated Glomerular Filt Rate 83 ml/min (>60); GFR (African American) 101 ML/MIN (>60); Globulin 3.2 g/dL (1.3-3.2); Glucose 109 mg/dl (74-100); Potassium 3.5 mmoL/L (3.5-5.1); Sodium 135 mmol/L (136-145); Total Protein,Serum 7.8 g/dl (6.3-8.2)
[2025-04-27 14:00] LABS: Free T4 (Free Thyroxine) 0.96 ng/dl (0.78-2.19)
[2025-04-27 14:16] LABS: Thyroid Stimulating Hormone 1.92 uIU/mL (0.465-4.68)
[2025-04-27 14:51] LABS: Bilirubin,Urine Negative (Negative); Color,Urine YELLOW (Yellow); Glucose,Urine (UA) Negative (Negative); Ketones,Urine Negative (Negative); Leukocyte Esterase,Urine Negative (Negative); PH,Urine 6.0 (5.0-8.5); Protein,Urine Negative (Negative); Specific Gravity, Urine 1.010 (1.005-1.030); Urobilinogen,Urine 0.2 EU/dl (0.2)
[2025-04-27 14:58] LABS: RBC,Urine 50-100 #/hpf (0-3); WBC,Urine Occasional #/hpf (0-3)
[2025-04-27 14:59] LABS: Bacteria,Urine Trace /lpf
== END 2025-04-27 23:59 | disposition home or self-care (01) ==
LOC: LAB 12:17
PROVIDERS: PCP Family Medicine; Visit Provider Nurse Practitioner Acute Care
DX: R41.0 Disorientation, unspecified (principal); R53.83 Other fatigue; Z79.899 Other long term (current) drug therapy
CPT/HCPCS: 36415; 80053; 80178; 81001; 84439; 84443